=== PATIENT | male | born 1960 | race Caucasian/White ===

== ENCOUNTER → 2019-12-18 11:42 | Outpatient (BNVA) | payer MEDICAID, SELFPAY | PROVIDERS: PCP Family Medicine; Visit Provider Surgery | DX: Z47.81 Encounter for orthopedic aftercare following surgical amputation (principal); M86.9 Osteomyelitis, unspecified; L97.519 Non-pressure chronic ulcer of other part of right foot with unspecified severity; Z89.421 Acquired absence of other right toe(s) | CPT/HCPCS: 99024; 99212 ==

== ENCOUNTER 2019-12-26 07:36 | Day surgery (SDC) | payer MEDICAID, SELFPAY ==
[2019-12-25 11:39] VITALS: BMI 23.8
--- NOTE | 2019-12-25 12:22 | HO.ANESPROP2 ---
Documented by User: Analia Rees 12/25/19 12:35 HPI - Anesthesia Eval Consult details Narrative: 59yo M for Right 4th metatarsal soft tissue debridment s/p Right toe amps 09/23/19 with GA-LMA 5 PMFSH Past Medical History Medical History Bronchitis, chronic CAD (coronary artery disease) COPD (chronic obstructive pulmonary disease) Depression Diabetes type 2 with atherosclerosis of arteries of extremities GERD (gastroesophageal reflux disease) Hyperlipidemia Hypertension Lung cancer SHANIQUA (obstructive sleep apnea) Osteomyelitis of fourth toe of right foot PVD (peripheral vascular disease) Family History Family History Father History of lung cancer Mother History of hypertension Family history of Alzheimer's disease Maternal Uncle History of colon cancer Surgical History Surgical History History of angioplasty History of bronchoscopy History of cholecystectomy History of hernia repair History of removal of cyst History of tonsillectomy Social History Social History Alcohol intake: former Smoking Status: Current every day smoker Packs Per Day: 2 Cigarettes Per Day: 40.0 Years Smoked: 45 Smoked in Last 30 Days: Yes Substance Use Type: Marijuana Substance Use Frequency: Daily Advance Directives: No Advance Directives Information Provided: No Recently lost weight without trying: Unsure Meds Allergies Allergy/AdvReac Type Severity Reaction Status Date / Time lisinopril [LISINOPRIL] Allergy Intermediate BLEEDING Verified 12/26/19 07:51 IN MOUTH,SWELLING Josh inhibitors Allergy Unknown Unknown Uncoded 12/18/19 11:48 Home Medications Medication Instructions Recorded Confirmed Type aspirin 81 mg tablet,delayed 81 mg PO DAILY 12/18/19 History release atorvastatin 40 mg tablet 40 mg PO DAILY 12/18/19 History clopidogrel 75 mg tablet 75 mg PO DAILY 12/18/19 History famotidine 20 mg tablet 20 mg PO BID 12/18/19 History folic acid 1 mg tablet 1 mg PO DAILY 12/18/19 History isosorbide mononitrate 60 mg 60 mg PO DAILY 12/18/19 History tablet,extended release 24 hr loratadine 10 mg capsule 10 mg PO DAILY 12/18/19 History magnesium gluconate 27 mg 27 mg PO DAILY tab 12/18/19 History magnesium (500 mg) tablet omega-3 fatty acids 1,000 mg 1,000 mg PO DAILY 12/18/19 History capsule quetiapine 50 mg tablet 50 mg PO BEDTIME 12/18/19 History tamsulosin 0.4 mg capsule 0.4 mg PO DAILY 12/18/19 History thiamine HCl (vitamin B1) 100 mg 100 mg PO DAILY 12/18/19 History tablet venlafaxine 37.5 mg 37.5 mg PO DAILY 12/18/19 History capsule,extended release 24 hr vitamin B complex 1 tab PO DAILY 12/18/19 History Flovent 12/26/19 History Exam Exam Date and Time: December 25, 2019 1222 Height,Weight and Vital Signs: Height 5 ft 10 in Weight 75.296 kg Pertinent Lab Results Pertinent Lab Results: Laboratory Tests 12/16/19 12/16/19 14:00 14:00 WBC 16.1 H Hgb 10.2 L Hct 31.5 L Plt Count 422 H Sodium 137 Potassium 4.1 Chloride 102 Carbon Dioxide 29 BUN 6 L Creatinine 0.71 Narrative Narrative: EKG 06/27/19: ST@102 Assessment and Plan Assessment Anesthesia Assessment: Chart Reviewed Documented by User: Regi Schuster 12/26/19 08:58 [facility] Past Medical History Medical History Bronchitis, chronic CAD (coronary artery disease) COPD (chronic obstructive pulmonary disease) Depression Diabetes type 2 with atherosclerosis of arteries of extremities GERD (gastroesophageal reflux disease) Hyperlipidemia Hypertension Lung cancer SHANIQUA (obstructive sleep apnea) Osteomyelitis of fourth toe of right foot PVD (peripheral vascular disease) Family History Family History Father History of lung cancer Mother History of hypertension Family history of Alzheimer's disease Maternal Uncle History of colon cancer Surgical History Surgical History History of angioplasty History of bronchoscopy History of cholecystectomy History of hernia repair History of removal of cyst History of tonsillectomy Social History Social History Alcohol intake: former Smoking Status: Current every day smoker Packs Per Day: 2 Cigarettes Per Day: 40.0 Years Smoked: 45 Smoked in Last 30 Days: Yes Substance Use Type: Marijuana Substance Use Frequency: Daily Advance Directives: No Advance Directives Information Provided: No Recently lost weight without trying: Unsure Meds Allergies Allergy/AdvReac Type Severity Reaction Status Date / Time lisinopril [LISINOPRIL] Allergy Intermediate BLEEDING Verified 12/26/19 07:51 IN MOUTH,SWELLING Josh inhibitors Allergy Unknown Unknown Uncoded 12/18/19 11:48 Home Medications Medication Instructions Recorded Confirmed Type aspirin 81 mg tablet,delayed 81 mg PO DAILY 12/18/19 History release atorvastatin 40 mg tablet 40 mg PO DAILY 12/18/19 History clopidogrel 75 mg tablet 75 mg PO DAILY 12/18/19 History famotidine 20 mg tablet 20 mg PO BID 12/18/19 History folic acid 1 mg tablet 1 mg PO DAILY 12/18/19 History isosorbide mononitrate 60 mg 60 mg PO DAILY 12/18/19 History tablet,extended release 24 hr loratadine 10 mg capsule 10 mg PO DAILY 12/18/19 History magnesium gluconate 27 mg 27 mg PO DAILY tab 12/18/19 History magnesium (500 mg) tablet omega-3 fatty acids 1,000 mg 1,000 mg PO DAILY 12/18/19 History capsule quetiapine 50 mg tablet 50 mg PO BEDTIME 12/18/19 History tamsulosin 0.4 mg capsule 0.4 mg PO DAILY 12/18/19 History thiamine HCl (vitamin B1) 100 mg 100 mg PO DAILY 12/18/19 History tablet venlafaxine 37.5 mg 37.5 mg PO DAILY 12/18/19 History capsule,extended release 24 hr vitamin B complex 1 tab PO DAILY 12/18/19 History Flovent 12/26/19 History Exam Airway Mallampati Class: II TM Dist: >3cm Neck ROM: Limited Denture: Upper and Lower Heart: RRR Lungs: CTA Assessment and Plan Assessment Anesthesia Assessment: Anesthesia Plan Discussed Final Anesthetic Review NPO: Yes ASA Class: III Final Preanesthetic Review: No Changes in Pt Med Stat, Meds/Allgs Chart Reviewed, Consent Obtained/Reviewed, Anes Risks/Benef Reviewed and DNR Form (If Appl.) Patient Risk: Intermediate Procedure Risk: Low Assessment/Block/Sedation in SS: Assess/Block/Sedation-SS Anesthetic Plan Anesthetic Plan: MAC: Disposition: Standard PACU
[2019-12-26 08:07] VITALS: BP 115/77; PULSE 120; RESP 18; TEMP 36.6; O2SAT 95
[2019-12-26] MEDS: Albuterol Sulfate (0.083%) 2.5 MG/3 ML VIAL.NEB INHALE (08:26)
[2019-12-26] MEDS: ceFAZolin Sodium/Dextrose,Iso 2 GM/50 ML PIGGYBACK IV (08:26)
[2019-12-26] MEDS: Lactated Ringers 1,000 ML 100 ML IVCONT (08:26)
[2019-12-26 08:34] LABS: Glucose, Whole Blood 138 mg/dL (60-115)
--- NOTE | 2019-12-26 08:40 | MHC.SHP ---
Pre-Procedural Eval Section A The patient is an INPATIENT: No Changes since office visit: Yes Patient answered all questions; No Cold of Flu in the past 2 weeks, No New Medical Problems and No Changes in Medication The History & Physical has been completed within 30 days and I have reviewed it.: Yes Section B Chief Complaint: Osteomyelitis, Unspecified Allergies: Allergies Allergy/AdvReac Type Severity Reaction Status Date / Time lisinopril [LISINOPRIL] Allergy Intermediate BLEEDING Verified 12/26/19 07:51 IN MOUTH,SWELLING Josh inhibitors Allergy Unknown Unknown Uncoded 12/18/19 11:48 Plan Diagnosis/Plan: Unchanged Patient has been examined and remains a candidate for the planned procedure
[2019-12-26 09:20] VITALS: BP 112/67; PULSE 115; RESP 16; TEMP 36.5; O2SAT 99
[2019-12-26 09:35] VITALS: BP 120/74; PULSE 101; RESP 20; O2SAT 100
[2019-12-26 09:50] VITALS: BP 131/83; PULSE 99; RESP 20; O2SAT 100
--- NOTE | 2019-12-26 10:38 | HO.POSTANES ---
Post Anesthesia Evaluation Post Anesthesia Evaluation Vital Signs: Vital Signs Temp Pulse Resp BP Pulse Ox 12/26/19 09:50 99 20 131/83 100 12/26/19 09:35 101 H 20 120/74 100 12/26/19 09:20 97.7 F 115 H 16 112/67 99 12/26/19 08:07 97.9 F 120 H 18 115/77 95 Anesthesia: Monitored Mental Status: Awake Pain Control: Satisfactory Nausea/Vomiting: None Hydration: Adequate Anesthesia-Related Issues: No Anes. Related Issues
--- NOTE | 2019-12-27 15:45 | MHC.HEMONCSW ---
ZEESHAN REQUEST FOR CT ABD/PELVIS WITH C WENT TO [facility]....C# [id number]. WAIT DECISION.
--- NOTE | 2019-12-30 15:08 | P.OP_ITS ---
Operative Note Operative Note Narrative: Date of procedure: 12/26/19 Pre-op diagnosis: Osteomyelitis, right 4th toe Post-op diagnosis: same Procedure: Debridement bone right 4th metatarsal Procedure Details: Patient was brought to the OR and placed in a supine position. Light sedation was administered. The patient's right foot was prepped with Betadine and draped in a sterile fashion. A surgical time-out was called and the consent confirmed. Patient received preoperative antibiotics and Venodyne boots were in place. Local anesthesia consisting of 0.5% Sensorcaine plain was infiltrated as a digital block around the 4th metatarsal. A 15 blade was then used to excise a plantar ulcer located at the base of the 4th metatarsal including skin and subcutaneous tissue. The ulcer measured approximately 2.5 by 1.5 cm. The ulcer is approximately 1.5 cm deep. A bony structure was noted at the base of the wound. This was grasped with a towel clip and electrocautery used to dissected free from the surrounding subcutaneous tissue. The bone was noted to be soft and obviously infected. Periosteal e levator was used to further dissect the metatarsal proximal to the mid metatarsal level. At this point a bone cutter was used to divide the metatarsal. The bone was further debrided more proximal using a rongeur. Several small sesmoid bones were identified were identified within the subcutaneous tissue and excised using electrocautery. These were all sent as specimens. The wounds were checked for hemostasis using electrocautery. Wounds were irrigated thoroughly and suctioned dry. Wounds were then packed with iodoform gauze the later switched to a Surgicel packing. This was followed by dry sterile gauze, ABD pad and 4 in Raghav. The patient tolerated the procedure well. Sponge, instruments, and needle counts were reported as correct. The patient was transferred to PACU in stable condition. Implants: none Surgeon: Roberto Londono MD Anesthesia: MAC Labor Training Manager: Peyton Leyva Estimated blood loss (mL): 20 Pathology: other (4th metatarsal) Condition: stable Disposition: PACU
== END 2019-12-26 11:01 | disposition home health service (06) ==
PROVIDERS: PCP Family Medicine; Visit Provider Surgery
PROC: (CPT 11044; principal; 2019-12-26 09:10)
DX: E11.621 Type 2 diabetes mellitus with foot ulcer (principal); L97.418 Non-pressure chronic ulcer of right heel and midfoot with other specified severity; E11.69 Type 2 diabetes mellitus with other specified complication; E11.52 Type 2 diabetes mellitus with diabetic peripheral angiopathy with gangrene; I70.261 Atherosclerosis of native arteries of extremities with gangrene, right leg; M86.171 Other acute osteomyelitis, right ankle and foot; C34.90 Malignant neoplasm of unspecified part of unspecified bronchus or lung; I25.10 Atherosclerotic heart disease of native coronary artery without angina pectoris; G47.33 Obstructive sleep apnea (adult) (pediatric); J44.9 Chronic obstructive pulmonary disease, unspecified; Z79.899 Other long term (current) drug therapy
CPT/HCPCS: 11044; 82947; 88304; 88305; 88311; J0690; J3010

== ENCOUNTER 2020-01-07 12:40 | Outpatient (RCR) | payer MEDICAID, SELFPAY | END 2020-02-26 13:33 | disposition home or self-care (01) | LOC: HO.WCC 12:40 | PROVIDERS: PCP Family Medicine; Visit Provider Surgery | DX: E11.621 Type 2 diabetes mellitus with foot ulcer (principal); E11.51 Type 2 diabetes mellitus with diabetic peripheral angiopathy without gangrene; L97.512 Non-pressure chronic ulcer of other part of right foot with fat layer exposed; D02.20 Carcinoma in situ of unspecified bronchus and lung | CPT/HCPCS: 11043; 11044; 99212 ==

== ENCOUNTER → 2020-01-23 15:34 | Outpatient (BNVA) | payer MEDICAID, SELFPAY | PROVIDERS: PCP Family Medicine; Visit Provider Surgery Vascular Surgery | DX: Z76.89 Persons encountering health services in other specified circumstances (principal) ==

== ENCOUNTER → 2020-02-04 11:23 | Outpatient (BNVA) | payer MEDICAID, SELFPAY | PROVIDERS: PCP Family Medicine; Visit Provider Surgery | DX: M86.9 Osteomyelitis, unspecified (principal); L97.416 Non-pressure chronic ulcer of right heel and midfoot with bone involvement without evidence of necrosis; Z89.431 Acquired absence of right foot; Z98.890 Other specified postprocedural states | CPT/HCPCS: 99212 ==

== ENCOUNTER 2020-02-17 06:56 | Day surgery (SDC) | payer MEDICAID, SELFPAY ==
[2020-02-11 19:27] VITALS: BMI 53.7
[2020-02-11 20:31] VITALS: BMI 24.3
--- NOTE | 2020-02-14 11:31 | HO.ANESPROP2 ---
Documented by User: Analia Rees 02/14/20 11:36 HPI - Anesthesia Eval Consult details Narrative: 89yo M for Right Debridement Soft Tissue Right 3rd toe 12/26/19 s/p Debridement bone right 4th metatarsal with MAC PMFSH Past Medical History Medical History Amputation of one or more toes BPH (benign prostatic hyperplasia) Bronchitis, chronic CAD (coronary artery disease) COPD (chronic obstructive pulmonary disease) Depression Diabetes type 2 with atherosclerosis of arteries of extremities GERD (gastroesophageal reflux disease) Hyperlipidemia Hypertension Lung cancer SHANIQUA (obstructive sleep apnea) Peripheral neuropathy PVD (peripheral vascular disease) Smoker Family History Family History Father History of lung cancer Mother History of hypertension Family history of Alzheimer's disease Maternal Uncle History of colon cancer Surgical History Surgical History History of angioplasty History of bronchoscopy History of cholecystectomy History of hernia repair History of removal of cyst History of tonsillectomy Osteomyelitis of fourth toe of right foot Social History Social History Alcohol intake: former Smoking Status: Current every day smoker Packs Per Day: 2 Cigarettes Per Day: 40.0 Years Smoked: 45 Smoked in Last 30 Days: Yes Patient Interested in Nicotine Replacement: No Use of substances other than those prescribed or required for medical reasons: Yes Substance Use Type: Marijuana Substance Use Frequency: Daily Advance Directives: Yes Advance Directives Information Provided: Yes Advance Directives on File: No (Patient will bring in copy) Advance Directives Date on File: 04/14/09 Meds Allergies Allergy/AdvReac Type Severity Reaction Status Date / Time lisinopril [LISINOPRIL] Allergy Intermediate BLEEDING Verified 01/23/20 15:44 IN MOUTH,SWELLING Josh inhibitors Allergy Unknown Unknown Uncoded 12/18/19 11:48 Home Medications Medication Instructions Recorded Confirmed Type aspirin 81 mg tablet,delayed 81 mg PO DAILY 12/18/19 02/11/20 History release atorvastatin 40 mg tablet 40 mg PO BEDTIME 12/18/19 02/11/20 History clopidogrel 75 mg tablet 75 mg PO DAILY 12/18/19 02/11/20 History famotidine 20 mg tablet 20 mg PO DAILY 12/18/19 02/11/20 History folic acid 1 mg tablet 1 mg PO DAILY 12/18/19 02/11/20 History isosorbide mononitrate 60 mg 60 mg PO DAILY 12/18/19 02/11/20 History tablet,extended release 24 hr loratadine 10 mg capsule 10 mg PO DAILY 12/18/19 02/11/20 History magnesium gluconate 27 mg 27 mg PO DAILY tab 12/18/19 02/11/20 History magnesium (500 mg) tablet omega-3 fatty acids 1,000 mg 1,000 mg PO BID 12/18/19 02/11/20 History capsule quetiapine 50 mg tablet 50 mg PO BID 12/18/19 02/11/20 History tamsulosin 0.4 mg capsule 0.4 mg PO DAILY 12/18/19 02/11/20 History thiamine HCl (vitamin B1) 100 mg 100 mg PO DAILY 12/18/19 02/11/20 History tablet venlafaxine 37.5 mg 37.5 mg PO DAILY 12/18/19 02/11/20 History capsule,extended release 24 hr vitamin B complex 1 tab PO DAILY 12/18/19 02/11/20 History Flovent 1 puff BID 12/26/19 02/11/20 History dexamethasone 4 mg PO BID 01/06/20 02/11/20 History albuterol sulfate [ProAir HFA] 1 inh INHALATION QID PRN 01/08/20 02/11/20 History ferrous sulfate 325 mg PO BID 01/08/20 02/11/20 History fluticasone propionate 113 mcg INHALATION BID 01/08/20 02/11/20 History gabapentin 300 mg PO TID 01/08/20 02/11/20 History gabapentin 600 mg PO TID 01/08/20 02/11/20 History multivitamin 1 tab PO DAILY 01/08/20 02/11/20 History omeprazole 20 mg PO BID 01/08/20 02/11/20 History ondansetron HCl [Zofran] 8 mg PO Q8H PRN 01/08/20 02/11/20 History tiotropium bromide [Spiriva with 1 cap INHALATION DAILY 01/08/20 02/11/20 History HandiHaler] Exam Exam Date and Time: February 14, 2020 1131 Height,Weight and Vital Signs: Height 5 ft 10 in Weight 77.111 kg Pertinent Lab Results Pertinent Lab Results: Laboratory Tests 11/16/20 11/16/20 10:13 10:13 WBC 12.4 H Hgb 10.8 L Hct 34.2 L Plt Count 420 H Sodium 133 L Potassium 4.3 Chloride 100 Carbon Dioxide 26 BUN 7 L Creatinine 0.67 Narrative Narrative: EKG 06/27/19: ST@102 Assessment and Plan Assessment Anesthesia Assessment: Chart Reviewed Documented by User: Yesenia Han 02/17/20 07:25 PMFSH Past Medical History Medical History Amputation of one or more toes BPH (benign prostatic hyperplasia) Bronchitis, chronic CAD (coronary artery disease) COPD (chronic obstructive pulmonary disease) Depression Diabetes type 2 with atherosclerosis of arteries of extremities GERD (gastroesophageal reflux disease) Hyperlipidemia Hypertension Lung cancer SHANIQUA (obstructive sleep apnea) Peripheral neuropathy PVD (peripheral vascular disease) Smoker Family History Family History Father History of lung cancer Mother History of hypertension Family history of Alzheimer's disease Maternal Uncle History of colon cancer Surgical History Surgical History History of angioplasty History of bronchoscopy History of cholecystectomy History of hernia repair History of removal of cyst History of tonsillectomy Osteomyelitis of fourth toe of right foot Social History Social History Alcohol intake: former Smoking Status: Current every day smoker Packs Per Day: 2 Cigarettes Per Day: 40.0 Years Smoked: 45 Smoked in Last 30 Days: Yes Patient Interested in Nicotine Replacement: No Use of substances other than those prescribed or required for medical reasons: Yes Substance Use Type: Marijuana Substance Use Frequency: Daily Advance Directives: Yes Advance Directives Information Provided: Yes Advance Directives on File: No (Patient will bring in copy) Advance Directives Date on File: 04/14/09 Meds Allergies Allergy/AdvReac Type Severity Reaction Status Date / Time lisinopril [LISINOPRIL] Allergy Intermediate BLEEDING Verified 01/23/20 15:44 IN MOUTH,SWELLING Josh inhibitors Allergy Unknown Unknown Uncoded 12/18/19 11:48 Home Medications Medication Instructions Recorded Confirmed Type aspirin 81 mg tablet,delayed 81 mg PO DAILY 12/18/19 02/11/20 History release atorvastatin 40 mg tablet 40 mg PO BEDTIME 12/18/19 02/11/20 History clopidogrel 75 mg tablet 75 mg PO DAILY 12/18/19 02/11/20 History famotidine 20 mg tablet 20 mg PO DAILY 12/18/19 02/11/20 History folic acid 1 mg tablet 1 mg PO DAILY 12/18/19 02/11/20 History isosorbide mononitrate 60 mg 60 mg PO DAILY 12/18/19 02/11/20 History tablet,extended release 24 hr loratadine 10 mg capsule 10 mg PO DAILY 12/18/19 02/11/20 History magnesium gluconate 27 mg 27 mg PO DAILY tab 12/18/19 02/11/20 History magnesium (500 mg) tablet omega-3 fatty acids 1,000 mg 1,000 mg PO BID 12/18/19 02/11/20 History capsule quetiapine 50 mg tablet 50 mg PO BID 12/18/19 02/11/20 History tamsulosin 0.4 mg capsule 0.4 mg PO DAILY 12/18/19 02/11/20 History thiamine HCl (vitamin B1) 100 mg 100 mg PO DAILY 12/18/19 02/11/20 History tablet venlafaxine 37.5 mg 37.5 mg PO DAILY 12/18/19 02/11/20 History capsule,extended release 24 hr vitamin B complex 1 tab PO DAILY 12/18/19 02/11/20 History Flovent 1 puff BID 12/26/19 02/11/20 History dexamethasone 4 mg PO BID 01/06/20 02/11/20 History albuterol sulfate [ProAir HFA] 1 inh INHALATION QID PRN 01/08/20 02/11/20 History ferrous sulfate 325 mg PO BID 01/08/20 02/11/20 History fluticasone propionate 113 mcg INHALATION BID 01/08/20 02/11/20 History gabapentin 300 mg PO TID 01/08/20 02/11/20 History gabapentin 600 mg PO TID 01/08/20 02/11/20 History multivitamin 1 tab PO DAILY 01/08/20 02/11/20 History omeprazole 20 mg PO BID 01/08/20 02/11/20 History ondansetron HCl [Zofran] 8 mg PO Q8H PRN 01/08/20 02/11/20 History tiotropium bromide [Spiriva with 1 cap INHALATION DAILY 01/08/20 02/11/20 History HandiHaler] Exam Airway Mallampati Class: II TM Dist: >3cm Neck ROM: Full Loose/Missing/Broken Teeth: Yes (Edentulous), Upper and Lower Heart: RRR Lungs: clear but distant Assessment and Plan Assessment Anesthesia Assessment: Anesthesia Plan Discussed and Chart Reviewed Final Anesthetic Review NPO: Yes ASA Class: III Final Preanesthetic Review: No Changes in Pt Med Stat, Meds/Allgs Chart Reviewed and Anes Risks/Benef Reviewed Patient Risk: Intermediate Procedure Risk: Low Anesthetic Plan Anesthetic Plan: MAC: Disposition: Standard PACU
[2020-02-17 06:31] VITALS: BP 130/75; PULSE 96; RESP 16; TEMP 36.3; O2SAT 95
[2020-02-17] MEDS: Lactated Ringers 1,000 ML 100 ML IVCONT ×2 (06:50→07:21)
[2020-02-17] MEDS: ceFAZolin Sodium/Dextrose,Iso 2 GM/50 ML PIGGYBACK IV (07:20)
--- NOTE | 2020-02-17 07:21 | MHC.SHP ---
Pre-Procedural Eval Section A The patient is an INPATIENT: No Changes since office visit: Yes Patient answered all questions; No Cold of Flu in the past 2 weeks, No New Medical Problems and No Changes in Medication The History & Physical has been completed within 30 days and I have reviewed it.: Yes Section B Chief Complaint: Osteomyelitis Allergies: Allergies Allergy/AdvReac Type Severity Reaction Status Date / Time lisinopril [LISINOPRIL] Allergy Intermediate BLEEDING Verified 01/23/20 15:44 IN MOUTH,SWELLING Josh inhibitors Allergy Unknown Unknown Uncoded 12/18/19 11:48 Plan Diagnosis/Plan: Unchanged Patient has been examined and remains a candidate for the planned procedure
[2020-02-17 08:21] LABS: Glucose, Whole Blood 129 mg/dL (60-115)
--- NOTE | 2020-02-17 08:47 | PM.OP ---
Brief Operative Note Date of Service: 02/17/20 Pre-op diagnosis: Osteomyelitis 3rd toe right foot Post-op diagnosis: other (Osteomyelitis transmetatarsal right foot) Procedure: Revision right transmetatarsal amputation, debridement of skin, subcutaneous tissue, muscle, and bone right foot Implants: None Surgeon: Roberto Londono MD Anesthesia: MAC On Call Pharmacy Technician: Peyton Leyva Estimated blood loss (mL): 30 Pathology: other (Osteomyelitis right foot) Condition: stable Disposition: PACU
--- NOTE | 2020-02-17 08:49 | W.PM.OPN ---
Operative Note Operative Note Date of Service: 02/17/20 Narrative: Preoperative diagnosis: Osteomyelitis right 3rd toe Postoperative diagnosis: Osteomyelitis 1st through 5th toes right foot Procedure: Revision of transmetatarsal amputation right foot with debridement of bone, muscle, subcutaneous tissue, and skin Surgeon: Roberto Londono MD Jigsaw Operator: ZANA Banuelos Anesthesia: MAC Indications for procedure 59-year-old male with a previous history of osteomyelitis of the right foot and peripheral vascular disease now with several open wounds of the right foot status post transmetatarsal amputation. Operative findings: Patient was found to have multiple areas of osteomyelitis involving the metatarsals and distal phalanx of the right foot involving both 1st 2nd 3rd 4th and 5th metatarsals. Specimen: Osteomyelitis right foot, revision transmetatarsal amputation Drains: Iodoform gauze quarter-inch Complications: None Estimated blood loss: 30 mL Procedure details.: Patient was brought to the OR placed in a supine position. After administering light sedation the patient's right foot was prepped with Betadine and draped in sterile fashion. A surgical time-out was called the consent confirmed. Patient received preoperative antibiotics. Local anesthesia consisting of 0.5% Sensorcaine mixed with 1% lidocaine plain was infiltrated in the right foot as a block. An elliptical incision was then created to include all the open wounds located on the plantar surface of the foot. This was created in a transverse fashion along the right foot. The incision was carried down through subcutaneous tissue down to the distal metatarsals. Infected tissue was noted in the bone in the distal metatarsal therefore electrocautery was used to dissect slightly more proximal in the bone down to healthy bone. A bone cutter was then used to divide the 5th through 1st metatarsals. This was further debrided using a rongeur. Wounds were irrigated thoroughly with saline solution and suctioned dry. Wounds were checked for hemostasis. Deep subcutaneous tissue and dermis were reapproximated using interrupted 3-0 Polysorb sutures. Skin was then closed using interrupted 2 0 nylon sutures. 1/4 inch iodoform gauze was then packed between sutures. The wounds were then dressed with fluff gauze followed by ABD pad followed by Kerlix followed by an Josh bandage. The patient tolerated the procedure well. Sponge, instrument, needle counts reported as correct. The patient was transferred to PACU in stable condition.
[2020-02-17 08:50] VITALS: BP 115/66; PULSE 91; RESP 18; TEMP 36.6; O2SAT 97
[2020-02-17 09:05] VITALS: BP 130/77; PULSE 87; RESP 18; TEMP 36.6; O2SAT 95
--- NOTE | 2020-02-17 12:30 | HO.POSTANES ---
Post Anesthesia Evaluation Post Anesthesia Evaluation Vital Signs: Vital Signs Temp Pulse Resp BP Pulse Ox 02/17/20 09:05 97.8 F 87 18 130/77 95 02/17/20 08:50 97.8 F 91 18 115/66 97 02/17/20 06:31 97.4 F 96 16 130/75 95 Anesthesia: Monitored Mental Status: Awake Pain Control: Satisfactory Nausea/Vomiting: None Hydration: Adequate Anesthesia-Related Issues: No Anes. Related Issues
== END 2020-02-17 09:47 ==
LOC: HO.SSS 06:57
PROVIDERS: PCP Family Medicine; Visit Provider Surgery
PROC: (CPT 28805; principal; 2020-02-17 07:30)
DX: E11.621 Type 2 diabetes mellitus with foot ulcer (principal); E11.69 Type 2 diabetes mellitus with other specified complication; L97.516 Non-pressure chronic ulcer of other part of right foot with bone involvement without evidence of necrosis; I70.201 Unspecified atherosclerosis of native arteries of extremities, right leg; M86.171 Other acute osteomyelitis, right ankle and foot; E11.51 Type 2 diabetes mellitus with diabetic peripheral angiopathy without gangrene; E11.40 Type 2 diabetes mellitus with diabetic neuropathy, unspecified; Z79.84 Long term (current) use of oral hypoglycemic drugs; I10 Essential (primary) hypertension; G47.33 Obstructive sleep apnea (adult) (pediatric); T87.89 Other complications of amputation stump; Y83.5 Amputation of limb(s) as the cause of abnormal reaction of the patient, or of later complication, without mention of misadventure at the time of the procedure; Y92.9 Unspecified place or not applicable; Z89.431 Acquired absence of right foot; F17.210 Nicotine dependence, cigarettes, uncomplicated
CPT/HCPCS: 28805; 82947; 88305; 88311; J0690; J3010

== ENCOUNTER 2020-02-17 15:12 | Observation (INO) | payer MEDICAID, SELFPAY ==
[2020-02-17 15:35] VITALS: BP 126/81; BP 150/86; PULSE 103; PULSE 78; RESP 16; TEMP 37.1; O2SAT 95; BMI 26.6
--- NOTE | 2020-02-17 15:38 | ED_ITS ---
HPI - Extremity Injury (Lower) General Chief Complaint: Recheck/Abnormal Lab/Rx Stated Complaint: BLEEDING S/P Time Seen by Provider: 02/17/20 15:25 Source: patient and EMS Mode of arrival: EMS History of Present Illness HPI Narrative: 59yoM w/PMHx HTN, HLD, SHANIQUA, PVD, CAD, Depression, Lung CA, osteomyelitis, s/p revision right transmetatarsal amputation performed this AM by Dr. Londono presenting to ED c/o bleeding from surgical site since 1PM this afternoon. Reports soaked through dressing/shoe/recliner. Takes Xarelto. Denies trauma/injury, lightheadedness/dizziness, CP/SOB Related Data Home Medications Medication Instructions Recorded Confirmed aspirin 81 mg tablet,delayed 81 mg PO DAILY 12/18/19 02/11/20 release atorvastatin 40 mg tablet 40 mg PO BEDTIME 12/18/19 02/11/20 clopidogrel 75 mg tablet 75 mg PO DAILY 12/18/19 02/11/20 famotidine 20 mg tablet 20 mg PO DAILY 12/18/19 02/11/20 folic acid 1 mg tablet 1 mg PO DAILY 12/18/19 02/11/20 isosorbide mononitrate 60 mg 60 mg PO DAILY 12/18/19 02/11/20 tablet,extended release 24 hr loratadine 10 mg capsule 10 mg PO DAILY 12/18/19 02/11/20 magnesium gluconate 27 mg 27 mg PO DAILY tab 12/18/19 02/11/20 magnesium (500 mg) tablet omega-3 fatty acids 1,000 mg 1,000 mg PO BID 12/18/19 02/11/20 capsule quetiapine 50 mg tablet 50 mg PO BID 12/18/19 02/11/20 tamsulosin 0.4 mg capsule 0.4 mg PO DAILY 12/18/19 02/11/20 thiamine HCl (vitamin B1) 100 mg 100 mg PO DAILY 12/18/19 02/11/20 tablet venlafaxine 37.5 mg 37.5 mg PO DAILY 12/18/19 02/11/20 capsule,extended release 24 hr vitamin B complex 1 tab PO DAILY 12/18/19 02/11/20 Flovent 1 puff BID 12/26/19 02/11/20 dexamethasone 4 mg PO BID 01/06/20 02/11/20 Spiriva with HandiHaler 1 cap INHALATION DAILY 01/08/20 02/11/20 albuterol sulfate [ProAir HFA] 1 inh INHALATION QID PRN 01/08/20 02/11/20 ferrous sulfate 325 mg PO BID 01/08/20 02/11/20 fluticasone propionate 113 mcg INHALATION BID 01/08/20 02/11/20 gabapentin 300 mg PO TID 01/08/20 02/11/20 gabapentin 600 mg PO TID 01/08/20 02/11/20 multivitamin 1 tab PO DAILY 01/08/20 02/11/20 omeprazole 20 mg PO BID 01/08/20 02/11/20 ondansetron HCl [Zofran] 8 mg PO Q8H PRN 01/08/20 02/11/20 Previous Rx's Medication Instructions Recorded oxycodone 5 mg PO Q6H PRN #14 tab 12/26/19 oxycodone 5 mg PO Q6H PRN #20 tab 02/17/20 Allergies Allergy/AdvReac Type Severity Reaction Status Date / Time lisinopril [LISINOPRIL] Allergy Intermediate BLEEDING Verified 01/23/20 15:44 IN MOUTH,SWELLING Josh inhibitors Allergy Unknown Unknown Uncoded 12/18/19 11:48 Review of Systems Review of Systems: Constitutional: No Weight loss, No Fever Cardiovascular: No Chest Pain, No SOB Respiratory: No Cough, No Sputum, No Wheezing Musculoskeletal: + joint pain, No Myalgias, No Joint Swelling Skin: +surgical site bleeding Neuro: No Weakness, No Paresthesias (from chronic neuropthy), No Loss of Consciousness, No Dizziness/lightheadedness, No Headache PMFSH Past Medical History Attestation statement: The following information was validated with the patient. Medical History Amputation of one or more toes BPH (benign prostatic hyperplasia) Bronchitis, chronic CAD (coronary artery disease) COPD (chronic obstructive pulmonary disease) Depression Diabetes type 2 with atherosclerosis of arteries of extremities GERD (gastroesophageal reflux disease) Hyperlipidemia Hypertension Lung cancer SHANIQUA (obstructive sleep apnea) Peripheral neuropathy PVD (peripheral vascular disease) Smoker Surgical History History of angioplasty History of bronchoscopy History of cholecystectomy History of hernia repair History of removal of cyst History of tonsillectomy Osteomyelitis of fourth toe of right foot Family History Family History Father History of lung cancer Mother History of hypertension Family history of Alzheimer's disease Maternal Uncle History of colon cancer Social History Social History Alcohol intake: never Smoking Status: Current every day smoker Packs Per Day: 2 Cigarettes Per Day: 40.0 Years Smoked: 45 Use of substances other than those prescribed or required for medical reasons: Yes Substance Use Type: Marijuana Substance Use Frequency: Occasionally Advance Directives: Yes Advance Directives on File: Yes Advance Directives Date on File: 04/14/09 Physical Exam Vital Signs: Vital Signs: Last Vital Signs Temp 98.8 F 02/17/20 15:35 Pulse 103 H 02/17/20 15:35 Resp 16 02/17/20 15:35 BP 126/81 02/17/20 15:35 Pulse Ox 95 02/17/20 15:35 Body Mass Index 26.6 Const: General: cooperative and healthy appearing Orientation/consciousness: patient oriented x3 Limitations: no limitations HENMT: Head: Yes normal to inspection Ears: hearing grossly normal bilaterally General nose exam: Normal external nose present Face and sinus: Yes normal facial exam Eyes: General: appearance normal, both eyes and all related structures EOM: EOMs intact bilaterally Neck: Neck: Yes normal visual inspection Resp: Effort & Inspection: normal respiratory effort Cardio: Rate: regular rate Peripheral pulses: dorsalis pedis present GI: Inspection: Yes normal to inspection Skin: Other: +R foot surgical site with soaked through dressing, large clot noted. Sutures intact distally, wound weeping. No signs of cellulitis or active infection, no fluctuance/induration or active hemorrhage Neuro: General: patient oriented x3 Extrem: General: Yes normal to inspection Course Course Course Narrative: Dr. Londono came to ED, re-wrapped patient, recommended observation in ED and then f/u in his office tomorrow morning -1700--- ED care transferred to KATHI Zuluaga pending labs and re-eval MDM - Extremity Injury (Lower) MDM Narrative Medical decision making narrative: 59yoM w/PMHx HTN, HLD, SHANIQUA, PVD, CAD, Depression, Lung CA, osteomyelitis, s/p revision right transmetatarsal amputati on performed this AM by Dr. Londono presenting to ED c/o bleeding from surgical site since 1PM this afternoon. On exam mildly tachycardic, NAD, well appearing. Will consult Dr. Londono. R/o anemia from acute blood loss Plan: Consult surgery, Labs, observe Discharge Plan Discharge Clinical Impression: Post-op bleeding Patient Disposition: Home, Self-Care Instructions: Acute Wounds (ED) Prescriptions: No Action dexamethasone 4 mg Tablet 4 mg PO BID RF: 0 ferrous sulfate 325 mg (65 mg iron) Tablet 325 mg PO BID RF: 0 multivitamin Tablet 1 tab PO DAILY RF: 0 gabapentin 600 mg Tablet 600 mg PO TID RF: 0 albuterol sulfate [ProAir HFA] 90 mcg/actuation Hfa Aerosol Inhaler 1 inh INHALATION QID PRN (Reason: Shortness Of Breath Or Wheezing) RF: 0 Spiriva with HandiHaler 18 mcg Capsule, W/Inhalation Device 1 cap INHALATION DAILY RF: 0 fluticasone propionate 113 mcg inhalation BID RF: 0 gabapentin 300 mg Tablet 300 mg PO TID RF: 0 omeprazole 20 mg Tablet,Delayed Release (Dr/Ec) 20 mg PO BID RF: 0 ondansetron HCl [Zofran] 4 mg tablet 8 mg PO Q8H PRN (Reason: Nausea) RF: 0 Flovent 1 puff BID RF: 0 oxycodone 5 mg tablet 5 mg PO Q6H PRN (Reason: Foot pain) Qty: 14 RF: 0 oxycodone 5 mg tablet 5 mg PO Q6H PRN (Reason: pain) Qty: 20 RF: 0 aspirin [Adult Low Dose Aspirin] 81 mg tablet,delayed release (DR/EC) 81 mg PO DAILY RF: 0 loratadine 10 mg capsule 10 mg PO DAILY RF: 0 folic acid 1 mg tablet 1 mg PO DAILY RF: 0 omega-3 fatty acids [Fish Oil Concentrate] 1,000 mg capsule 1,000 mg PO BID RF: 0 vitamin B complex [B Complex-Vitamin B12] Tablet 1 tab PO DAILY RF: 0 thiamine HCl (vitamin B1) 100 mg tablet 100 mg PO DAILY RF: 0 venlafaxine 37.5 mg capsule,extended release 24hr 37.5 mg PO DAILY RF: 0 tamsulosin 0.4 mg capsule 0.4 mg PO DAILY RF: 0 quetiapine 50 mg tablet 50 mg PO BID RF: 0 magnesium gluconate [Mag-G] 27 mg magnesium (500 mg) tablet 27 mg PO DAILY RF: 0 isosorbide mononitrate 60 mg tablet extended release 24 hr 60 mg PO DAILY RF: 0 famotidine 20 mg tablet 20 mg PO DAILY RF: 0 clopidogrel 75 mg tablet 75 mg PO DAILY RF: 0 atorvastatin 40 mg tablet 40 mg PO BEDTIME RF: 0 Referrals: Roberto Londono MD [Physician] - 1 day (tomorrow morning)
[2020-02-17 16:00] VITALS: BP 151/70; PULSE 91; RESP 20; TEMP 36.8; O2SAT 93
--- NOTE | 2020-02-17 16:04 | PC.NURSE ---
dressing removed, large blood clot removed, gauze and rory wrap soaked through with blood. bleeding controlled once dressing removed, dr orr at bedside to assess wound site and redress. new dressing in place, pt to be monitored for any restart of bleeding, f/u with surgeon in outpt office tomorrow.
--- NOTE | 2020-02-17 16:15 | PM.EVENT ---
Event Note Date of Service: 02/17/20 Event Note: Patient seen in the ED after he reported increased bleeding from his wounds following surgery today. The dressings were removed and mild swelling noted in the foot. No active bleeding is noted. Wounds were cleaned and new sterile dressings with a compression dressing was applied. He tolerated the dressing change well. A new boot will be applied for the patient. He will return tomorrow to the office for a dressing change.
[2020-02-17 16:52] LABS: MANUAL DIFF FLAG NO
[2020-02-17 16:53] LABS: Basophils Percent Auto 0.2 % (0-2); Eosinophils Absolute Auto 0.2 X10*3/uL (0.0-0.4); Eosinophils Percent Auto 1.2 % (0-4); Hematocrit 33.8 % (42-52); Hemoglobin 10.4 g/dl (14.0-18.0); Imm Gran Abs Auto 0.11 X10*3/uL (0.00-0.03); Imm Gran Pct Auto 0.8 % (0.0-0.4); Lymphocytes Absolute Auto 1.2 X10*3/uL (1.2-4.9); Lymphocytes Percent Auto 7.9 % (20-40); Mean Corpuscular HGB Conc 30.8 g/dl (31.0-36.0); Mean Corpuscular Volume 97.4 fL (80-98); Mean Platelet Volume 8.2 fL (9.4-12.4); Monocytes Absolute Auto 1.1 X10*3/uL (0.1-1.2); Monocytes Percent Auto 7.4 % (2-11); Neutrophils Percent Auto 82.5 % (45-73); Platelet Count 366 X10*3/uL (160-400); Red Blood Count 3.47 X10*6/uL (4.60-5.80); Red Cell Distribution Width 16.8 % (11.0-16.0); White Blood Count 14.5 X10*3/uL (4.8-10.8)
[2020-02-17 16:59] LABS: INTERNATIONAL NORM RATIO 1.1 (0.9-1.1); Prothrombin Time 13.4 SEC (10.8-13.0)
[2020-02-17 17:04] LABS: Partial Thromboplastin Time 61.9 SEC (24.1-38.0)
[2020-02-17 20:00] VITALS: BP 151/70; PULSE 91; RESP 20; TEMP 36.8; O2SAT 93
[2020-02-17] MEDS: oxyCODONE HCl Immed Release 5 MG TABLET PO ×2 (20:14→23:53)
[2020-02-17] MEDS: LORazepam 0.5 MG TABLET PO (20:19)
[2020-02-17 20:25] VITALS: BP 148/68; PULSE 92; RESP 18; TEMP 36.9; O2SAT 93
[2020-02-17] MEDS: Morphine Sulfate 4 MG/ML CARTRIDGE IVPUSH (21:39)
[2020-02-17] MEDS: Lactated Ringers 1,000 ML 80 ML IVCONT (21:43)
[2020-02-17] MEDS: 0.9 % Sodium Chloride Flush 3 ML SYRINGE IVFLUSH (21:56)
[2020-02-18] MEDS: Morphine Sulfate 4 MG/ML CARTRIDGE IVPUSH ×3 (00:41→11:37)
[2020-02-18 04:00] VITALS: BP 128/62; PULSE 77; RESP 14; TEMP 36.2; O2SAT 94
[2020-02-18 06:47] LABS: Basophils Absolute Auto 0.1 X10*3/uL (0.0-0.2); Basophils Percent Auto 0.3 % (0-2); Eosinophils Absolute Auto 0.3 X10*3/uL (0.0-0.4); Eosinophils Percent Auto 1.9 % (0-4); Hematocrit 35.5 % (42-52); Hemoglobin 11.2 g/dl (14.0-18.0); Imm Gran Abs Auto 0.08 X10*3/uL (0.00-0.03); Imm Gran Pct Auto 0.5 % (0.0-0.4); Lymphocytes Absolute Auto 2.6 X10*3/uL (1.2-4.9); Lymphocytes Percent Auto 15.8 % (20-40); MANUAL DIFF FLAG SCAN; Mean Corpuscular HGB Conc 31.5 g/dl (31.0-36.0); Mean Corpuscular Hemoglobin 30.6 pg (27.0-33.0); Mean Platelet Volume 8.7 fL (9.4-12.4); Monocytes Absolute Auto 1.6 X10*3/uL (0.1-1.2); Monocytes Percent Auto 9.6 % (2-11); Neutrophils Absolute Auto 11.6 X10*3/uL (2.0-8.3); Neutrophils Percent Auto 71.9 % (45-73); Platelet Count 587 X10*3/uL (160-400); Red Blood Count 3.66 X10*6/uL (4.60-5.80); Red Cell Distribution Width 16.9 % (11.0-16.0); SCAN SMEAR FLAG 1; White Blood Count 16.2 X10*3/uL (4.8-10.8)
[2020-02-18] MEDS: Lactated Ringers 1,000 ML 80 ML IVCONT (07:30)
--- NOTE | 2020-02-18 07:32 | P.HPGS_ITS ---
History of Present Illness History of Present Illness Date of Service: 02/18/20 Chief complaint: postoperative bleeding right foot Narrative: Parviz Rosas is a 59 year old male well known to me with a history of Diabetes, PVD and osteomyelitis of the right foot, s/p revision of the trans metatarsal amputaion of the right foot on 02/17/2020. He was discharged to home and noted increased bleeding through the dressings after getting up to go to the bathroom. He presented to the ED and was found to have a large clot under the dressing. A new dressing was applied but he bleed through the second dressing with observation, therefore a pressure dressing was applied and he was admitted for observation. Overnight he reports right foot pain and difficulty sleeping. Review of Systems Constitutional: Constitutional: Reports anorexia, Reports difficulty sleeping, Reports weakness and Reports weight loss Cardiovascular: Cardiovascular: Reports dyspnea on exertion Respiratory: Respiratory: Reports cough and Reports dyspnea on exertion Gastrointestinal: Gastrointestinal: Reports no additional gastrointestinal complaints Musculoskeletal: Comments: right foot pain Neurologic: Reports weakness Psychiatric: Comments: anxiety PMFSH Past Medical History Medical History Amputation of one or more toes BPH (benign prostatic hyperplasia) Bronchitis, chronic CAD (coronary artery disease) COPD (chronic obstructive pulmonary disease) Depression Diabetes type 2 with atherosclerosis of arteries of extremities GERD (gastroesophageal reflux disease) Hyperlipidemia Hypertension Lung cancer SHANIQUA (obstructive sleep apnea) Peripheral neuropathy PVD (peripheral vascular disease) Smoker Family History Family History Father History of lung cancer Mother History of hypertension Family history of Alzheimer's disease Maternal Uncle History of colon cancer Surgical History Surgical History History of angioplasty History of bronchoscopy History of cholecystectomy History of hernia repair History of removal of cyst History of tonsillectomy Osteomyelitis of fourth toe of right foot Social History Social History Household Members: Spouse Housing: Apartment Do you presently have visiting nurse or other home services: No Alcohol intake: never Smoking Status: Current every day smoker Tobacco Type: Cigarette Packs Per Day: 2 Cigarettes Per Day: 40.0 Years Smoked: 45 years Smoked in Last 30 Days: Yes Patient Interested in Nicotine Replacement: No (Pt. has metastatic lung cancer stage 4) Use of substances other than those prescribed or required for medical reasons: Yes Substance Use Type: Marijuana Substance Use Frequency: Daily Last Used Substance: Hours (ago) Currently Displaying Signs/Symptoms of Drug Intoxication Withdrawal: No Any prior treatment program specific to substance use: No Have you been hit, kicked, punched, or otherwise hurt by someone within the past year? If so, by whom?: No Do you feel safe in your current relationship?: Yes Is there a partner from a previous relationship who is making you feel unsafe now?: No Are you made to feel afraid or neglected: No Advance Directives: Yes Advance Directives on File: Yes Advance Directives Date on File: 04/14/09 Do you have thoughts of harming others: None Do you have a plan to hurt others: No Plan Recently lost weight without trying: Yes Meds Allergies Allergy/AdvReac Type Severity Reaction Status Date / Time lisinopril [LISINOPRIL] Allergy Intermediate BLEEDING Verified 01/23/20 15:44 IN MOUTH,SWELLING Josh inhibitors Allergy Unknown Unknown Uncoded 12/18/19 11:48 Home Medications Medication Instructions Recorded Confirmed Type aspirin 81 mg tablet,delayed 81 mg PO DAILY 12/18/19 02/17/20 History release atorvastatin 40 mg tablet 40 mg PO BEDTIME 12/18/19 02/17/20 History clopidogrel 75 mg tablet 75 mg PO DAILY 12/18/19 02/17/20 History famotidine 20 mg tablet 20 mg PO DAILY 12/18/19 02/17/20 History folic acid 1 mg tablet 1 mg PO DAILY 12/18/19 02/17/20 History isosorbide mononitrate 60 mg 60 mg PO DAILY 12/18/19 02/17/20 History tablet,extended release 24 hr loratadine 10 mg capsule 10 mg PO DAILY 12/18/19 02/17/20 History magnesium gluconate 27 mg 27 mg PO DAILY tab 12/18/19 02/17/20 History magnesium (500 mg) tablet omega-3 fatty acids 1,000 mg 1,000 mg PO BID 12/18/19 02/17/20 History capsule quetiapine 50 mg tablet 50 mg PO BID 12/18/19 02/17/20 History tamsulosin 0.4 mg capsule 0.4 mg PO DAILY 12/18/19 02/17/20 History thiamine HCl (vitamin B1) 100 mg 100 mg PO DAILY 12/18/19 02/17/20 History tablet venlafaxine 37.5 mg 37.5 mg PO DAILY 12/18/19 02/17/20 History capsule,extended release 24 hr vitamin B complex 1 tab PO DAILY 12/18/19 02/17/20 History dexamethasone 4 mg PO BID 01/06/20 02/17/20 History Spiriva with HandiHaler 1 cap INHALATION DAILY 01/08/20 02/17/20 History albuterol sulfate [ProAir HFA] 1 inh INHALATION QID PRN 01/08/20 02/17/20 History ferrous sulfate 325 mg PO BID 01/08/20 02/17/20 History gabapentin 300 mg PO TID 01/08/20 02/17/20 History gabapentin 600 mg PO TID 01/08/20 02/17/20 History multivitamin 1 tab PO DAILY 01/08/20 02/17/20 History omeprazole 20 mg PO BID 01/08/20 02/17/20 History ondansetron HCl [Zofran] 8 mg PO Q8H PRN 01/08/20 02/17/20 History fluticasone propionate [Flovent] 1 puff INHALATION BID 02/17/20 02/17/20 History Physical Exam Vital Signs: Vital Signs: Last Vital Signs Temp 97.2 F 02/18/20 04:00 Pulse 77 02/18/20 04:00 Resp 14 02/18/20 04:00 BP 128/62 02/18/20 04:00 Pulse Ox 94 02/18/20 04:00 Body Mass Index 26.6 Const: General: cooperative, comfortable, awake, ill appearing and tired appearing Eyes: General: appearance normal, both eyes and all related structures Resp: Effort & Inspection: normal respiratory effort, Actively coughing and not tachypneic GI: Inspection: Yes normal to inspection Extrem: Other: right foot s/p revision TMA, clot at incision but no active bleeding identified. Some swelling of foot. Results Results Labs: Short CBC 02/17/20 Range/Units 16:47 WBC 14.5 H (4.8-10.8) X10*3/uL Hgb 10.4 L (14.0-18.0) g/dl Hct 33.8 L (42-52) % Plt Count 366 (160-400) X10*3/uL Assessment and Plan (1) Osteomyelitis of third toe of right foot: Status: Acute (2) Post-op bleeding: Status: Acute Patient admitted for observation after developing postoperative bleeding in the right foot. Pressure dressing applied which seems to be holding well with no additional bleeding. Will reassess in am for possible discharge vs. return to OR. Will hold ASA and plavix (3) Osteomyelitis of fourth toe of right foot: Status: Acute
--- NOTE | 2020-02-18 07:44 | PM.PNGS ---
Subjective Subjective Date of Service: 02/18/20 Interval history: Patient reports difficulty sleeping due to foot pain, no additional bleeding overnight. Physical Exam Vital Signs: Vital Signs: Last Vital Signs Temp 97.2 F 02/18/20 04:00 Pulse 77 02/18/20 04:00 Resp 14 02/18/20 04:00 BP 128/62 02/18/20 04:00 Pulse Ox 94 02/18/20 04:00 Body Mass Index 26.6 Const: General: cooperative; No comfortable Nutritional Appearance: thin Orientation/consciousness: patient oriented x3 Resp: Effort & Inspection: normal respiratory effort and no audible wheezes Neuro: General: patient oriented x3 Extrem: Other: right foot dressings are clean and intact without evidence of ongoing bleeding. Progress Note: A&P Assessment and plan (1) Post-op bleeding: Status: Acute Assessment and Plan: No evidence of ongoing bleeding overnight. Will return later today to change to foot dressings and decide if he is ready for discharge to home. Fall Risk Details Current Medications: Current Medications Generic Name Dose Route Start Last Admin Trade Name Freq PRN Reason Stop Dose Admin Acetaminophen 650 mg 02/17/20 19:49 Acetaminophen 325 Mg Tablet PO Q6H PRN Pain, Mild (Pain Scale 1-3) Lactated Ringer's 1,000 mls @ 80 mls/hr 02/17/20 20:45 02/18/20 07:30 Lr IVCONT 80 mls/hr .[id number] MOLLY Administration Lorazepam 0.5 mg 02/17/20 19:13 02/17/20 20:19 Lorazepam 0.5 Mg Tablet PO 0.5 mg Q8H PRN Administration Anxiety Morphine Sulfate 4 mg 02/17/20 21:09 02/18/20 06:25 Morphine Sulfate 4 Mg/Ml Cartridge IVPUSH 4 mg Q3H PRN Administration Pain, Severe (Pain Scale 7-10) Oxycodone HCl 5 mg 02/17/20 21:11 02/17/20 23:53 Oxycodone Hcl Immed Release 5 Mg Tablet PO 5 mg Q6H PRN Administration Pain, Moderate (Pain Scale 4-6 Pharmacy Consult 1 each 02/17/20 19:49 Consult Rx Perform Med Rec MISCELLANE ONCE PRN Consult order Sodium Chloride 3 ml 02/18/20 00:00 12/08/20 07:31 0.9 % Sodium Chloride Flush 3 Ml Syringe IVFLUSH Not Given QSHIFT MOLLY Zolpidem Tartrate 5 mg 02/17/20 21:12 Zolpidem Tartrate 5 Mg Tablet PO BEDTIME PRN Insomnia Time Spent With Patient Time: Total time spent is greater than 50% in coordination of care (as documented) at patient's floor/unit and/or counseling patient: Time with patient: 15 - 24 minutes
[2020-02-18 07:45] VITALS: BP 152/76; PULSE 83; TEMP 36.1; O2SAT 90
[2020-02-18 10:31] LABS: SLIDE REVIEW VERIFIED
[2020-02-18 11:31] VITALS: BP 159/82; PULSE 91; RESP 18; TEMP 36.3; O2SAT 93
[2020-02-18] MEDS: ondansetron HCL 4 MG/2 ML VIAL IVPUSH (11:44)
--- NOTE | 2020-02-18 12:27 | MHC.CM.PN ---
EMR reviewed, pt is alert and oriented, independent w/care and activities at baseline, pt lives with who can assist w/any post op issues. Pt reports he has 3 flights of stairs but was able to hobble up them and is fine once in apt, pt reports he used [facility] after initial surgery on 12/25 and would prefer them if ordered by physician. Pt requests to use hospital shuttle for transportation home which is his usual mode of transport to and from [facility]. Pt has HCP on file and PCP is Wendy Liu MD.
--- NOTE | 2020-02-18 17:09 | W.MHC.F2F ---
Service Date Service Date: 02/18/20 Encounter Date of encounter: 02/18/20 Encounter: Dressing change Reasons for Services Signs and symptoms assessed: Check wound for bleeding, infection Reason for half-way: wound care and postoperative assessment and/or care Reason for physical therapy: assess need for DME Overseeing Care: Roberto Londono Homebound: Leaving the home is medically contraindicated at this time without the asist of a device and/or another person due th the listed conditions above and below. Reason homebound: unsteady gait / fall risk, leg weakness, pain with ambulation and shortness of breath at rest Homebound supporting statement: S/p revision of right transmetatarsal amputation, unable to ambulate Certification: Based on the above findings, I certify that this patient is confined to the home and needs intermittent half-way care, physical therapy and/or speech therapy, or continues to need occupational therapy. The patient is under my care, and I have initiated the establishment of the plan of care. The patient will be followed by a physician who will periodically review the plan of care.
--- NOTE | 2020-02-18 17:11 | PM.DS ---
DS: Providers Provider Date of admission: 02/17/20 17:56 Primary care physician: Unknown Physician DS: Diagnosis Discharge Diagnosis (1) Post-op bleeding: Status: Acute (2) Osteomyelitis of third toe of right foot: Status: Acute (3) PAD (peripheral artery disease): Status: Acute (4) Non-small cell lung cancer with metastasis: Status: Acute DS: Medications Discharge Medications Home Medications: Home Medications Medication Instructions Recorded Confirmed aspirin 81 mg tablet,delayed 81 mg PO DAILY 12/18/19 02/17/20 release atorvastatin 40 mg tablet 40 mg PO BEDTIME 12/18/19 02/17/20 clopidogrel 75 mg tablet 75 mg PO DAILY 12/18/19 02/17/20 famotidine 20 mg tablet 20 mg PO DAILY 12/18/19 02/17/20 folic acid 1 mg tablet 1 mg PO DAILY 12/18/19 02/17/20 isosorbide mononitrate 60 mg 60 mg PO DAILY 12/18/19 02/17/20 tablet,extended release 24 hr loratadine 10 mg capsule 10 mg PO DAILY 12/18/19 02/17/20 magnesium gluconate 27 mg 27 mg PO DAILY tab 12/18/19 02/17/20 magnesium (500 mg) tablet omega-3 fatty acids 1,000 mg 1,000 mg PO BID 12/18/19 02/17/20 capsule quetiapine 50 mg tablet 50 mg PO BID 12/18/19 02/17/20 tamsulosin 0.4 mg capsule 0.4 mg PO DAILY 12/18/19 02/17/20 thiamine HCl (vitamin B1) 100 mg 100 mg PO DAILY 12/18/19 02/17/20 tablet venlafaxine 37.5 mg 37.5 mg PO DAILY 12/18/19 02/17/20 capsule,extended release 24 hr vitamin B complex 1 tab PO DAILY 12/18/19 02/17/20 dexamethasone 4 mg PO BID 01/06/20 02/17/20 Spiriva with HandiHaler 1 cap INHALATION DAILY 01/08/20 02/17/20 albuterol sulfate [ProAir HFA] 1 inh INHALATION QID PRN 01/08/20 02/17/20 ferrous sulfate 325 mg PO BID 01/08/20 02/17/20 gabapentin 300 mg PO TID 10/28/20 12/07/20 gabapentin 600 mg PO TID 01/08/20 02/17/20 multivitamin 1 tab PO DAILY 01/08/20 02/17/20 omeprazole 20 mg PO BID 01/08/20 02/17/20 ondansetron HCl [Zofran] 8 mg PO Q8H PRN 01/08/20 02/17/20 fluticasone propionate 1 puff INHALATION BID 02/17/20 02/17/20 Previous Rx's Medication Instructions Recorded oxycodone 5 mg PO Q6H PRN #14 tab 12/26/19 DS: Summary Hospital Course Hospital Course: Parviz Rosas is a 59 year old male well known to me with a history of Diabetes, PVD and osteomyelitis of the right foot, s/p revision of the transmetatarsal amputaion of the right foot on 02/17/2020. He was discharged to home and noted increased bleeding through the dressings after getting up to go to the bathroom. He presented to the ED and was found to have a large clot under the dressing. A new dressing was applied but he bleed through the second dressing with observation, therefore a pressure dressing was applied and he was admitted for observation. Overnight he reports right foot pain and difficulty sleeping. By the next hospital day, he reported some pain in the foot but there was no evidence of further bleeding from the wound. The dressings were changed and he was discharged to home. He will follow up in the office in one week. VNA has been requested for wound care services at home. A face-to face was completed. Time Spent with Patient Time attestation: Total time spent providing and/or coordinating discharge services: Physical Exam Vital Signs: Vital Signs: Last Vital Signs Temp 97.3 F 02/18/20 11:31 Pulse 91 02/18/20 11:31 Resp 18 02/18/20 11:31 BP 159/82 H 02/18/20 11:31 Pulse Ox 93 02/18/20 11:31 Body Mass Index 26.6 Const: General: cooperative, comfortable and well developed; No confusion Nutritional Appearance: well nourished Orientation/consciousness: patient oriented x3 and No confusion Eyes: Sclerae: sclerae normal EOM: EOMs intact bilaterally Neck: Neck: Yes normal visual inspection Resp: Effort & Inspection: normal respiratory effort, no cough and no respiratory distress Auscultation: rhonchi Cardio: Jugular venous distension: no JVD Rate: regular rate Rhythm: regular rhythm GI: Inspection: Yes normal to inspection Palpation (GI): Soft to palpation, nontender, no guarding and not rigid Percussion: Yes normal to percussion Auscultation: normal bowel sounds Skin: General skin exam: dry skin Rashes: no rashes Neuro: General: patient oriented x3, no focal motor deficits and No confusion Extrem: Other: right foot dressing clean and intact DS: Data Data Completed and Pending Labs on day of discharge: 02/17/20 16:47 Complete Blood Count Auto Diff Stat Partial Thromboplastin Time Stat Prothrombin Time INR Stat 02/17/20 17:50 Transfer Order Routine 02/17/20 19:49 oxyCODONE HCl Immed Release [Roxicodone] 5 mg PO Q6H PRN 02/18/20 06:16 Complete Blood Count Auto Diff DAILY@0600 SLIDE REVIEW Routine Laboratory Last Values WBC 16.2 X10*3/uL (4.8-10.8) H 02/18/20 06:16 RBC 3.66 X10*6/uL (4.60-5.80) L 02/18/20 06:16 Hgb 11.2 g/dl (14.0-18.0) L 02/18/20 06:16 Hct 35.5 % (42-52) L 02/18/20 06:16 MCV 97.0 fL (80-98) 02/18/20 06:16 MCH 30.6 pg (27.0-33.0) 02/18/20 06:16 MCHC 31.5 g/dl (31.0-36.0) 02/18/20 06:16 RDW 16.9 % (11.0-16.0) H 02/18/20 06:16 Plt Count 587 X10*3/uL (160-400) H D 02/18/20 06:16 MPV 8.7 fL (9.4-12.4) L 02/18/20 06:16 Immature Gran % (Auto) 0.5 % (0.0-0.4) H 02/18/20 06:16 Neut % (Auto) 71.9 % (45-73) 02/18/20 06:16 Lymph % (Auto) 15.8 % (20-40) L 02/18/20 06:16 [place] % (Auto) 9.6 % (2-11) 02/18/20 06:16 Eos % (Auto) 1.9 % (0-4) 02/18/20 06:16 Baso % (Auto) 0.3 % (0-2) 02/18/20 06:16 Lymph # (Auto) 2.6 X10*3/uL (1.2-4.9) 02/18/20 06:16 [place] # (Auto) 1.6 X10*3/uL (0.1-1.2) H 02/18/20 06:16 Eos # (Auto) 0.3 X10*3/uL (0.0-0.4) 02/18/20 06:16 Baso # (Auto) 0.1 X10*3/uL (0.0-0.2) 02/18/20 06:16 Abs Immat Gran (auto) 0.08 X10*3/uL (0.00-0.03) H 02/18/20 06:16 Absolute Neuts (auto) 11.6 X10*3/uL (2.0-8.3) H 02/18/20 06:16 Absolute Nucleated RBC 0.000 X10*3/uL (0.0-0.012) 02/18/20 06:16 Nucleated RBC % (auto) 0.0 /100WBC (0.0-0.2) 02/18/20 06:16 Smear Tech's Comments VERIFIED 02/18/20 06:16 PT 13.4 SEC (10.8-13.0) H 02/17/20 16:47 INR 1.1 (0.9-1.1) 02/17/20 16:47 APTT 61.9 SEC (24.1-38.0) H* 02/17/20 16:47 Discharge Plan Discharge Patient Disposition: Home Health Service Referrals: Wendy Liu MD [Physician] - 1 Month (Tele 02/25/2020 1:30pm will call you to discuss your hospital stay.) Roberto Londono MD [Physician] - 1 Week (tomorrow morning) Discharge Medications: Continued dexamethasone 4 mg Tablet 4 mg PO BID RF: 0 ferrous sulfate 325 mg (65 mg iron) Tablet 325 mg PO BID RF: 0 multivitamin Tablet 1 tab PO DAILY RF: 0 gabapentin 600 mg Tablet 600 mg PO TID RF: 0 albuterol sulfate [ProAir HFA] 90 mcg/actuation Hfa Aerosol Inhaler 1 inh INHALATION QID PRN (Reason: Shortness Of Breath Or Wheezing) RF: 0 Spiriva with HandiHaler 18 mcg Capsule, W/Inhalation Device 1 cap INHALATION DAILY RF: 0 gabapentin 300 mg Tablet 300 mg PO TID RF: 0 omeprazole 20 mg Tablet,Delayed Release (Dr/Ec) 20 mg PO BID RF: 0 ondansetron HCl [Zofran] 4 mg tablet 8 mg PO Q8H PRN (Reason: Nausea) RF: 0 oxycodone 5 mg tablet 5 mg PO Q6H PRN (Reason: Foot pain) Qty: 14 RF: 0 fluticasone propionate 110 mcg/actuation Hfa Aerosol Inhaler 1 puff INHALATION BID RF: 0 aspirin [Adult Low Dose Aspirin] 81 mg tablet,delayed release (DR/EC) 81 mg PO DAILY RF: 0 loratadine 10 mg capsule 10 mg PO DAILY RF: 0 folic acid 1 mg tablet 1 mg PO DAILY RF: 0 omega-3 fatty acids [Fish Oil Concentrate] 1,000 mg capsule 1,000 mg PO BID RF: 0 vitamin B complex [B Complex-Vitamin B12] Tablet 1 tab PO DAILY RF: 0 thiamine HCl (vitamin B1) 100 mg tablet 100 mg PO DAILY RF: 0 venlafaxine 37.5 mg capsule,extended release 24hr 37.5 mg PO DAILY RF: 0 tamsulosin 0.4 mg capsule 0.4 mg PO DAILY RF: 0 quetiapine 50 mg tablet 50 mg PO BID RF: 0 magnesium gluconate [Mag-G] 27 mg magnesium (500 mg) tablet 27 mg PO DAILY RF: 0 isosorbide mononitrate 60 mg tablet extended release 24 hr 60 mg PO DAILY RF: 0 famotidine 20 mg tablet 20 mg PO DAILY RF: 0 clopidogrel 75 mg tablet 75 mg PO DAILY RF: 0 atorvastatin 40 mg tablet 40 mg PO BEDTIME RF: 0 Discharge Orders: Discharge Order (Routine); Ordered 02/18/20 Ordered By: Roberto Londono Diet: advance to usual diet Activity on Discharge: Use cane or walker Patient Instructions: Acute Wounds (ED) Discharge Date/Time: 02/18/20 17:31 Activity Restrictions/Additional Instructions: No pressure on forefoot. Dressings changes with fluffs, abdominal dressing, kerlix wrap and JULITO wrap daily and PRN. Visit Report Forms: Patient Portal Discharge page Care Plan Goals: Heal right foot Health Concerns: Diabetes, PVD Plan of Treatment: Continued local wound care
--- NOTE | 2020-02-19 08:46 | MHC.CM.PN ---
NURSE RESEARCH ANIMAL ATTENDANT NOTE ELECTRONIC MEDICAL RECORD REVIEWED ,NOTED PATIENT HAD BEEN DISCHARGED HOME LAST NIGHT AFTER CASE MANAGEMENT LEFT. THE SURGEON WROTE ORDERS FOR HOME VNA FOR DRESSING CHANGES , WHEN CASE MANAGEMENT MET WITH PATIENT YESTERDAY HE AGREED TO HAVE THE [facility] FOR NURSING IF NEEDED HE HAD THEM IN JANUARY 2020. THE SURGEON WRITE FOR DRESSING CHANGES PER D/C ORDERS . [facility] SPOKE WITH DONITA ABOUT THIS PATIENT VIA [employer] UPLOADED THE HISTORY AND PHYSICAL THE DISCHARGE PACKET AND THE DISCHARGE SUMMARY AND FACE TO FACE TO THE [facility] , THEY WILL CALL HIM FOR WHEN THEY WILL VISIST. CASE MANAGEEMENT CO WORKER CALLED TO HIS HOME PHONE AND LEFT VOICE MESSAGE ABOUT THE ABOVE AND HOW TO REACH THE [facility] DISCHARGE LATE [facility] FOR DRESSING CHANGES PCP [facility]
== END 2020-02-18 17:31 | disposition home health service (06) ==
LOC: HO.ED 18:12 → HO.S3 18:21
PROVIDERS: Physician Assistant; Admitting Provider Surgery; Emergency Provider Internal Medicine; Visit Provider Surgery
DX: M79.671 Pain in right foot (principal); G47.33 Obstructive sleep apnea (adult) (pediatric); L76.22 Postprocedural hemorrhage of skin and subcutaneous tissue following other procedure; M86.171 Other acute osteomyelitis, right ankle and foot; E11.621 Type 2 diabetes mellitus with foot ulcer; E11.51 Type 2 diabetes mellitus with diabetic peripheral angiopathy without gangrene; L97.419 Non-pressure chronic ulcer of right heel and midfoot with unspecified severity; I73.9 Peripheral vascular disease, unspecified; E78.5 Hyperlipidemia, unspecified; I25.10 Atherosclerotic heart disease of native coronary artery without angina pectoris; I10 Essential (primary) hypertension; C80.1 Malignant (primary) neoplasm, unspecified; C78.00 Secondary malignant neoplasm of unspecified lung; K21.9 Gastro-esophageal reflux disease without esophagitis; F17.210 Nicotine dependence, cigarettes, uncomplicated; Z89.421 Acquired absence of other right toe(s); Z88.8 Allergy status to other drugs, medicaments and biological substances; Z79.899 Other long term (current) drug therapy
CPT/HCPCS: 36415; 85025; 85610; 85730; 96361; 96374; 96375; 99024; 99218; 99285; J2270; J2405

== ENCOUNTER → 2020-03-05 10:22 | Outpatient (BNVA) | payer MEDICAID, SELFPAY | PROVIDERS: PCP Family Medicine; Visit Provider Surgery | DX: M86.9 Osteomyelitis, unspecified (principal) | CPT/HCPCS: 99212 ==

== ENCOUNTER → 2020-03-18 15:34 | Outpatient (BNVA) | payer MEDICAID, SELFPAY | PROVIDERS: PCP Family Medicine; Visit Provider Surgery | DX: M86.9 Osteomyelitis, unspecified (principal) | CPT/HCPCS: 99212 ==

== ENCOUNTER 2020-03-27 21:33 | Emergency (ER) | payer MEDICAID, SELFPAY ==
--- NOTE | 2020-03-27 | ECG_ITS ---
Test Reason : CHEST PAIN Blood Pressure : / mmHG Vent. Rate : 114 BPM Atrial Rate : 114 BPM P-R Int : 164 ms QRS Dur : 096 ms QT Int : 330 ms P-R-T Axes : 042 -20 026 degrees QTc Int : 454 ms Sinus tachycardia Possible Septal infarct , age undetermined Abnormal ECG When compared to the previous EKG of qS pattern in laeds V1-V2 noted Referred By: Generic ED Physician Electronically Signed By:RICHAR MELVIN MD
[2020-03-27 21:44] VITALS: BP 119/70; BP 124/66; PULSE 114; PULSE 120; RESP 16; TEMP 37.6; O2SAT 91; O2SAT 99; BMI 25.2
--- NOTE | 2020-03-27 21:58 | ED_ITS ---
HPI - Chest Pain General Chief Complaint: Chest Pain Stated Complaint: CHEST/THROAT PAIN H/O CA Time Seen by Provider: 03/27/20 21:48 Source: patient Mode of arrival: EMS History of Present Illness HPI narrative: This is a 59-year-old male with multiple comorbidities that include diabetes, known ?blockage? at the ?lower part of his heart? that patient declined intervention with cardiac catheterization, and stage 4 metastatic lung CA who presents with onset of chest pressure, nonradiating, that started at approximately 6:00 p.m. this evening and had been preceded by a sore throat that he states happens ?sometimes?. Otherwise, patient denies any dizziness, nausea, diaphoresis, but states that he did experience difficulty breathing. He took 800 mg of Motrin which he states did not help and then proceeded to call EMS and received 324 mg of aspirin EN route. Patient states his pain has almost completely resolved at this time and denies any GI symptoms or symptoms with this episode of chest pain. He clearly states that he wishes to be a full code. Related Data Home Medications Medication Instructions Recorded Confirmed aspirin 81 mg tablet,delayed 81 mg PO DAILY 12/18/19 03/05/20 release atorvastatin 40 mg tablet 40 mg PO BEDTIME 12/18/19 03/05/20 clopidogrel 75 mg tablet 75 mg PO DAILY 12/18/19 03/05/20 famotidine 20 mg tablet 20 mg PO DAILY 12/18/19 03/05/20 folic acid 1 mg tablet 1 mg PO DAILY 12/18/19 03/05/20 isosorbide mononitrate 60 mg 60 mg PO DAILY 12/18/19 03/05/20 tablet,extended release 24 hr loratadine 10 mg capsule 10 mg PO DAILY 12/18/19 03/05/20 magnesium gluconate 27 mg 27 mg PO DAILY tab 12/18/19 03/05/20 magnesium (500 mg) tablet omega-3 fatty acids 1,000 mg 1,000 mg PO BID 12/18/19 03/05/20 capsule quetiapine 50 mg tablet 50 mg PO BID 12/18/19 03/05/20 tamsulosin 0.4 mg capsule 0.4 mg PO DAILY 12/18/19 03/05/20 thiamine HCl (vitamin B1) 100 mg 100 mg PO DAILY 12/18/19 03/05/20 tablet venlafaxine 37.5 mg 37.5 mg PO DAILY 12/18/19 03/05/20 capsule,extended release 24 hr vitamin B complex 1 tab PO DAILY 12/18/19 03/05/20 dexamethasone 4 mg PO BID 01/06/20 03/05/20 Spiriva with HandiHaler 1 cap INHALATION DAILY 01/08/20 03/05/20 albuterol sulfate [ProAir HFA] 1 inh INHALATION QID PRN 01/08/20 03/05/20 ferrous sulfate 325 mg PO BID 01/08/20 03/05/20 gabapentin 300 mg PO TID 01/08/20 03/05/20 gabapentin 600 mg PO TID 01/08/20 03/05/20 multivitamin 1 tab PO DAILY 01/08/20 03/05/20 omeprazole 20 mg PO BID 01/08/20 03/05/20 ondansetron HCl [Zofran] 8 mg PO Q8H PRN 01/08/20 03/05/20 fluticasone propionate 1 puff INHALATION BID 02/17/20 03/05/20 Previous Rx's Medication Instructions Recorded oxycodone 5 mg PO Q6H PRN #14 tab 12/26/19 Allergies Allergy/AdvReac Type Severity Reaction Status Date / Time lisinopril [LISINOPRIL] Allergy Intermediate BLEEDING Verified 01/23/20 15:44 IN MOUTH,SWELLING Josh inhibitors Allergy Unknown Unknown Uncoded 12/18/19 11:48 Review of Systems Review of Systems: Pertinent positives and negatives as stated in the HPI and 10 point review of systems is otherwise negative. FORMERLY [facility] Past Medical History Source: nursing notes reviewed Medical History Amputation of one or more toes BPH (benign prostatic hyperplasia) Bronchitis, chronic CAD (coronary artery disease) COPD (chronic obstructive pulmonary disease) Depression Diabetes type 2 with atherosclerosis of arteries of extremities GERD (gastroesophageal reflux disease) Hyperlipidemia Hypertension Lung cancer SHANIQUA (obstructive sleep apnea) Peripheral neuropathy PVD (peripheral vascular disease) Smoker Surgical History History of angioplasty History of bronchoscopy History of cholecystectomy History of hernia repair History of removal of cyst History of tonsillectomy Osteomyelitis of fourth toe of right foot Family History Family History Father History of lung cancer Mother History of hypertension Family history of Alzheimer's disease Maternal Uncle History of colon cancer Social History Social History Household Members: Spouse Housing: Apartment Alcohol intake: never Smoking Status: Current every day smoker Tobacco Type: Cigarette Packs Per Day: 2 Cigarettes Per Day: 40.0 Years Smoked: 45 years Use of substances other than those prescribed or required for medical reasons: Yes Substance Use Type: Marijuana Advance Directives: Yes Advance Directives on File: Yes Advance Directives Date on File: 04/14/09 service: No Current occupational status: unemployed Physical Exam Vital Signs: Vital Signs: Last Vital Signs Temp 98.8 F 03/28/20 05:37 Pulse 89 03/28/20 05:37 Resp 18 03/28/20 05:37 BP 117/76 03/28/20 05:37 Pulse Ox 96 03/28/20 05:37 Body Mass Index 25.2 VITAL SIGNS: Reviewed. GENERAL: Cachectic, chronically ill, no acute distress. HEAD: Normocephalic/atraumatic, EYES: PERRLA, EOMI intact without pain, no nystagmus/pallor/icterus noted EARS: Ext canals without abnormality, TMs non-bulging and non-erythematous NOSE: Nares patent bilateral OROPHARYNX: no oral lesions noted, posterior pharynx clear and non-erythematous without noted tonsillar enlargement/erythema/exudates NECK: Supple, no adenopathy LUNGS: Normal breath sounds. No adventitious sounds or accessory muscle use. SpO2<91> place on 2 L of oxygen and improved to 94%. CARDIOVASCULAR: Regular rate and rhythm without noted murmurs ABDOMEN: Soft, non-tender, non-distended with bowel sounds. MUSCULOSKELETAL: Patient with dressing and podiatry shoe on the right lower extremity consistent with history of recent toe OM EXTREMITIES: No cyanosis, clubbing or edema. SKIN: Inspection of the skin reveals no rashes NEUROLOGIC: Alert and oriented x 4. Course Course Course Narrative: This is a 59-year-old male with history and clinical presentation consistent with possible ischemic event given the change in the septal leads with Q-waves noted that is not consistent on comparison with EKG from 06/27/2019 but it is noted that patient had declined intervention and has been compliant with his medication of aspirin/Plavix. In addition, there is a possibility that patient has COVID-19, PE given underlying cancer, and these will be ruled out. All investigations were reviewed and patient with significant leukocytosis in the presence of negative COVID-19 swab and lactic acid is within normal limits and therefore does not need sepsis level fluids. Antibiotics Zosyn as well as vancomycin were provided due to findings on CTA of the chest for elevated D- dimer which showed filling defects within the bronchi suspicious for possible aspiration pneumonia in the lower lobes. The CTA was negative for any evidence PE, high sensitivity troponins were lateral without any acute changes on EKG when compared to prior. I discussed this case with the inpatient hospitalist team who is agreeable for admission with acute respiratory failure with hypoxemia requiring nasal cannula and CTA of the chest showing lower lobe pneumonia concerning for possible aspiration. Patient has been otherwise hemodynamically stable and has continued to remain chest pain free. MDM - Chest Pain Lab Data Result diagrams: 03/27/20 22:35 03/27/20 22:35 Labs: Lab Results 03/27/20 03/27/20 03/27/20 Range/Units 22:35 22:35 22:35 WBC 23.0 H (4.8-10.8) X10*3/uL RBC 3.58 L (4.60-5.80) X10*6/uL Hgb 10.9 L (14.0-18.0) g/dl Hct 33.3 L (42-52) % MCV 93.0 (80-98) fL MCH 30.4 (27.0-33.0) pg MCHC 32.7 (31.0-36.0) g/dl RDW 15.2 (11.0-16.0) % Plt Count 430 H D (160-400) X10*3/uL MPV 8.6 L (9.4-12.4) fL Immature Gran % (Auto) 0.6 H (0.0-0.4) % Neut % (Auto) 84.6 H (45-73) % Lymph % (Auto) 4.4 L (20-40) % [place] % (Auto) 10.0 (2-11) % Eos % (Auto) 0.2 (0-4) % Baso % (Auto) 0.2 (0-2) % Lymph # (Auto) 1.0 L (1.2-4.9) X10*3/uL [place] # (Auto) 2.3 H (0.1-1.2) X10*3/uL Eos # (Auto) 0.0 (0.0-0.4) X10*3/uL Baso # (Auto) 0.1 (0.0-0.2) X10*3/uL Abs Immat Gran (auto) 0.13 H (0.00-0.03) X10*3/uL Absolute Neuts (auto) 19.5 H (2.0-8.3) X10*3/uL Absolute Nucleated RBC 0.000 (0.0-0.012) X10*3/uL Nucleated RBC % (auto) 0.0 (0.0-0.2) /100WBC Smear Tech's Comments VERIFIED PT (10.8-13.0) SEC INR (0.9-1.1) APTT (24.1-38.0) SEC D-Dimer NG/ML Sodium 133 L (135-145) mmol/L Potassium 3.9 (3.3-5.1) mmol/l Chloride 99 (96-108) mmol/L Carbon Dioxide 23 (22-29) mmol/L Anion Gap 15 (12-20) BUN 8 L (9-16) mg/dL Creatinine 0.72 (0.5-1.4) mg/dL Estim Creat Clear Calc 112.6 Estimated GFR > 60 Random Glucose 151 H (60-115) mg/dL Lactic Acid (0.5-2.0) mmol/L Calcium 8.0 L (8.4-10.2) mg/dL Total Bilirubin 0.5 (0.0-1.0) mg/dL AST 15 (5-37) U/L ALT 12 (0-40) U/L Alkaline Phosphatase 219 H (39-117) U/L Troponin I High Sens 9.0 (<3.5-35.0) ng/L Total Protein 6.5 (6.5-8.0) g/dL Albumin 3.9 (3.5-5.0) g/dL Coronavirus (PCR) (Negative) Influenza Type A (PCR) (Negative) Influenza Type B (PCR) (Negative) RSV RNA Qual (PCR) (Negative) 03/27/20 03/27/20 03/27/20 Range/Units 23:44 23:44 23:44 WBC (4.8-10.8) X10*3/uL RBC (4.60-5.80) X10*6/uL Hgb (14.0-18.0) g/dl Hct (42-52) % MCV (80-98) fL MCH (27.0-33.0) pg MCHC (31.0-36.0) g/dl RDW (11.0-16.0) % Plt Count (160-400) X10*3/uL MPV (9.4-12.4) fL Immature Gran % (Auto) (0.0-0.4) % Neut % (Auto) (45-73) % Lymph % (Auto) (20-40) % [place] % (Auto) (2-11) % Eos % (Auto) (0-4) % Baso % (Auto) (0-2) % Lymph # (Auto) (1.2-4.9) X10*3/uL [place] # (Auto) (0.1-1.2) X10*3/uL Eos # (Auto) (0.0-0.4) X10*3/uL Baso # (Auto) (0.0-0.2) X10*3/uL Abs Immat Gran (auto) (0.00-0.03) X10*3/uL Absolute Neuts (auto) (2.0-8.3) X10*3/uL Absolute Nucleated RBC (0.0-0.012) X10*3/uL Nucleated RBC % (auto) (0.0-0.2) /100WBC Smear Tech's Comments PT 14.6 H (10.8-13.0) SEC INR 1.2 H (0.9-1.1) APTT 51.3 H (24.1-38.0) SEC D-Dimer 386 NG/ML Sodium (135-145) mmol/L Potassium (3.3-5.1) mmol/l Chloride (96-108) mmol/L Carbon Dioxide (22-29) mmol/L Anion Gap (12-20) BUN (9-16) mg/dL Creatinine (0.5-1.4) mg/dL Estim Creat Clear Calc Estimated GFR Random Glucose (60-115) mg/dL Lactic Acid 0.7 (0.5-2.0) mmol/L Calcium (8.4-10.2) mg/dL Total Bilirubin (0.0-1.0) mg/dL AST (5-37) U/L ALT (0-40) U/L Alkaline Phosphatase (39-117) U/L Troponin I High Sens (<3.5-35.0) ng/L Total Protein (6.5-8.0) g/dL Albumin (3.5-5.0) g/dL Coronavirus (PCR) NEGATIVE (Negative) Influenza Type A (PCR) NEGATIVE (Negative) Influenza Type B (PCR) NEGATIVE (Negative) RSV RNA Qual (PCR) NEGATIVE (Negative) 03/28/20 Range/Units 01:12 WBC (4.8-10.8) X10*3/uL RBC (4.60-5.80) X10*6/uL Hgb (14.0-18.0) g/dl Hct (42-52) % MCV (80-98) fL MCH (27.0-33.0) pg MCHC (31.0-36.0) g/dl RDW (11.0-16.0) % Plt Count (160-400) X10*3/uL MPV (9.4-12.4) fL Immature Gran % (Auto) (0.0-0.4) % Neut % (Auto) (45-73) % Lymph % (Auto) (20-40) % [place] % (Auto) (2-11) % Eos % (Auto) (0-4) % Baso % (Auto) (0-2) % Lymph # (Auto) (1.2-4.9) X10*3/uL [place] # (Auto) (0.1-1.2) X10*3/uL Eos # (Auto) (0.0-0.4) X10*3/uL Baso # (Auto) (0.0-0.2) X10*3/uL Abs Immat Gran (auto) (0.00-0.03) X10*3/uL Absolute Neuts (auto) (2.0-8.3) X10*3/uL Absolute Nucleated RBC (0.0-0.012) X10*3/uL Nucleated RBC % (auto) (0.0-0.2) /100WBC Smear Tech's Comments PT (10.8-13.0) SEC INR (0.9-1.1) APTT (24.1-38.0) SEC D-Dimer NG/ML Sodium (135-145) mmol/L Potassium (3.3-5.1) mmol/l Chloride (96-108) mmol/L Carbon Dioxide (22-29) mmol/L Anion Gap (12-20) BUN (9-16) mg/dL Creatinine (0.5-1.4) mg/dL Estim Creat Clear Calc Estimated GFR Random Glucose (60-115) mg/dL Lactic Acid (0.5-2.0) mmol/L Calcium (8.4-10.2) mg/dL Total Bilirubin (0.0-1.0) mg/dL AST (5-37) U/L ALT (0-40) U/L Alkaline Phosphatase (39-117) U/L Troponin I High Sens 8.1 (<3.5-35.0) ng/L Total Protein (6.5-8.0) g/dL Albumin (3.5-5.0) g/dL Coronavirus (PCR) (Negative) Influenza Type A (PCR) (Negative) Influenza Type B (PCR) (Negative) RSV RNA Qual (PCR) (Negative) ECG Data ECG #1: Attestation: I personally reviewed and interpreted this ECG as follows: Prior ECG tracings: available for review (06/27/2019 there are acute changes on comparison as the Q-waves were noted on prior EKG) Ischemic changes: q waves (V1, V2, V3) Interpretation: Sinus tachycardia, HR -114, ME/QRS/QTC within normal limits. Discharge Plan Discharge Clinical Impression: Acute respiratory failure with hypoxemia Pneumonia Qualifiers: Pneumonia type: due to unspecified organism Laterality: unspecified laterality Lung location: lower lobe of lung Qualified Code(s): J18.9 - Pneumonia, unspecified organism Patient Disposition: Admitted As Inpatient
--- NOTE | 2020-03-27 22:01 | XR_ITS ---
EXAMINATION: XR CHEST CLINICAL INFORMATION: Chest pain COMPARISON: Chest radiograph 03/12/[address] 05/15/2019 TECHNIQUE: Frontal view of the chest was obtained. FINDINGS: Heart size normal. Bibasilar atelectasis is seen, improved at the left lung base and slightly worse at the right lung base. No CHF or effusions. XR/XR chest 1V IMPRESSION: Bibasilar atelectasis. No acute intrathoracic disease.
[2020-03-27 22:43] LABS: Basophils Absolute Auto 0.1 X10*3/uL (0.0-0.2); Basophils Percent Auto 0.2 % (0-2); Eosinophils Percent Auto 0.2 % (0-4); Hematocrit 33.3 % (42-52); Hemoglobin 10.9 g/dl (14.0-18.0); Imm Gran Abs Auto 0.13 X10*3/uL (0.00-0.03); Imm Gran Pct Auto 0.6 % (0.0-0.4); Lymphocytes Percent Auto 4.4 % (20-40); MANUAL DIFF FLAG SCAN; Mean Corpuscular HGB Conc 32.7 g/dl (31.0-36.0); Mean Corpuscular Hemoglobin 30.4 pg (27.0-33.0); Mean Platelet Volume 8.6 fL (9.4-12.4); Monocytes Absolute Auto 2.3 X10*3/uL (0.1-1.2); Neutrophils Absolute Auto 19.5 X10*3/uL (2.0-8.3); Neutrophils Percent Auto 84.6 % (45-73); Platelet Count 430 X10*3/uL (160-400); Red Blood Count 3.58 X10*6/uL (4.60-5.80); Red Cell Distribution Width 15.2 % (11.0-16.0); SCAN SMEAR FLAG 1
[2020-03-27 22:46] VITALS: BP 111/63; PULSE 105; RESP 20; O2SAT 94
[2020-03-27 22:52] VITALS: PULSE 104
[2020-03-27 23:02] LABS: Alanine Aminotransferase 12 U/L (0-40); Albumin Level 3.9 g/dL (3.5-5.0); Alkaline Phosphatase 219 U/L (39-117); Anion Gap 15 (12-20); Aspartate Amino Transferase 15 U/L (5-37); Bilirubin Total 0.5 mg/dL (0.0-1.0); Blood Urea Nitrogen 8 mg/dL (9-16); Carbon Dioxide 23 mmol/L (22-29); Chloride 99 mmol/L (96-108); Creatinine Clr Calc Pharmacy 112.6; Estimated Glomerular Filt Rate > 60; Glucose Random 151 mg/dL (60-115); Potassium 3.9 mmol/l (3.3-5.1); Sodium 133 mmol/L (135-145); Total Protein 6.5 g/dL (6.5-8.0)
[2020-03-27 23:39] LABS: SLIDE REVIEW VERIFIED
[2020-03-28] VITALS (9 sets, daily range): BP systolic 108–150; BP diastolic 65–79; PULSE 85–96; RESP 16–20; TEMP 36.3–37.1; O2SAT 91–97
[2020-03-28 00:17] LABS: Lactic Acid 0.7 mmol/L (0.5-2.0)
[2020-03-28 00:37] LABS: Influenza A PCR NEGATIVE (Negative); Influenza B PCR NEGATIVE (Negative); Resp Syncy Virus RNA Qual PCR NEGATIVE (Negative); SARS COV2 PCR INHOUSE NEGATIVE (Negative)
[2020-03-28 00:54] LABS: D Dimer 386 NG/ML; Partial Thromboplastin Time 51.3 SEC (24.1-38.0)
--- NOTE | 2020-03-28 01:08 | CT_ITS ---
EXAMINATION: CT ANGIOGRAM OF THE CHEST WITH AND WITHOUT CONTRAST (CT PULMONARY ANGIOGRAM FOR PE) CT ABDOMEN PELVIS WITH CONTRAST CLINICAL INFORMATION: SOB, chest pain, abdominal discomfort COMPARISON: PET-CT dated 12/03/2019, CT chest from 06/04/2019, CT abdomen and pelvis dated 03/08/2018 TECHNIQUE: Prior to contrast administration, noncontrast localization images were obtained. Subsequently, multidetector volumetric imaging was performed from the thoracic inlet to the pubic symphysis through the chest, abdomen, and pelvis following the administration of 85.2 mL Omnipaque 350 intravenous contrast. No contrast reaction reported Sagittal, coronal, and MIP oblique sagittal (through the chest only) reformatted images were obtained on the CT workstation, uploaded to PACS, and reviewed. Total exam dose-length product: 827 mGy-cm FINDINGS: QUALITY OF STUDY/CONTRAST BOLUS: Satisfactory. PULMONARY ARTERIES: No central or segmental pulmonary emboli. THORACIC AORTA: Calcific atherosclerosis is present of the thoracic aorta without aneurysmal dilatation. No dissection. LUNG: There is moderate to severe diffuse centrilobular emphysema with an upper lobe predominance. The round 1.9 cm nodule within the lateral aspect of the right upper lobe on image 163 of series 8 is unchanged in size from prior. There is a adjacent 7 mm spiculated component along its cephalad margin (image 141) which was not well seen on the prior PET CT but is decreased in size from [address] from 05/15/2019. Patchy groundglass opacities are present in the lower lobes along with more reticular opacifications and atelectasis. Filling defects are present within multiple bronchi in the lower lobes, raising the possibility of aspiration. PLEURA: No pleural effusion or pneumothorax. MEDIASTINUM: Small pericardial effusion. Normal heart size. A 1.9 cm subcarinal lymph node appears unchanged from prior. There is a right hilar lymph node measuring approximately 2 cm in short axis which is not well-seen on prior unenhanced studies. The right lower paratracheal lymph node measuring 1.5 cm in short axis is unchanged from the prior PET and CT . Additional prominent lymph nodes are present in the region of the AP window, similar to prior. No evidence of septal bowing or right heart strain. CHEST WALL/AXILLA: No axillary or internal mammary lymphadenopathy. ABDOMEN/PELVIS: LIVER, GALLBLADDER AND BILIARY TREE: The liver is normal in size, shape, and attenuation. No focal hepatic lesion or biliary ductal dilatation is present. Status post cholecystectomy. PANCREAS: The pancreatic duct is mildly dilated. A dense 1.6 cm calcification is present within the region of the pancreatic duct at the pancreatic body. Multiple additional calcifications regional increase in size as compared to prior. 2 cysts within the pancreatic neck and body measuring 1.5 and 1.7 cm in diameter, better seen on the current study than on the prior. SPLEEN: Normal size. No focal lesion. ADRENAL GLANDS: Normal; no mass. KIDNEYS AND URETERS: There is marked perirenal fat stranding bilaterally. Kidneys are normal in size with a lobulation bilaterally. There is a complex 2.3 cm cystic lesion in the anterior margin of the left lower renal pole which is increased in size from 1.9 cm in 2018. 2 punctate renal calculi are present in the right kidney, measuring 2 and 3 mm in diameter. No obstructing nephrolithiasis. No hydronephrosis or hydroureter. GASTROINTESTINAL TRACT: The, small bowel, and colon are normal in caliber. No bowel wall thickening. There is moderate colonic diverticulosis, most pronounced in the sigmoid colon. Appendix is normal. No intraperitoneal free fluid or free air. ABDOMINAL WALL: Small fat-containing left inguinal hernia. LYMPHOVASCULAR STRUCTURES: Calcific atherosclerosis is present in the abdominal aorta and iliac arteries as well as the visceral branches. No aneurysmal dilatation. Flow limiting stenoses are suspected in the common iliac arteries bilaterally. BLADDER: Full. No focal mass or wall thickening seen. No bladder calculi. PELVIC VISCERA: Small dystrophic calcification is an abnormal prostate. Prostate gland is otherwise unremarkable. OSSEOUS STRUCTURES: Again seen are fractures of the right pubic bone in the parasymphyseal right inferior pubic ramus, similar to prior. These have not yet healed. No additional fractures are identified in the pelvis. Healed fractures are present within multiple right-sided ribs. There is mild osteoarthritis in the hips and SI joints. Mild/moderate multilevel degenerative spondylosis is most notable in the thoracic spine with chronic anterior wedging of the T7 vertebral body. No acute vertebral fractures are identified. Marked facet arthropathy is present in the lumbar spine on the right at L4-L5. CT/CT angio chest PE protocol IMPRESSION: Chest: 1. No evidence of pulmonary emboli. 2. Patchy groundglass opacities within the lower lobes with reticular consolidation and atelectasis. Given the presence of filling defects within the lower lobe bronchi, aspiration is a consideration. Viral pneumonia is also on the differential. 3. No significant change in the pulmonary lesions and mediastinal adenopathy as compared to prior. 4. Moderate to severe centrilobular emphysema. 5. Small pericardial effusion Abdomen and pelvis: 1. Dense calcifications within the pancreatic head have increased in size over multiple prior studies and produce mild pancreatic ductal dilatation. No evidence of pancreatitis. Two cystic pancreatic lesions are also noted, better seen now than on prior studies. Consider follow-up MRI of the abdomen with and without contrast on a nonemergent basis for further assessment. A complex cystic lesion in the left kidney could also be better assessed with this MRI. 2. Marked bilateral perinephric fat stranding is of uncertain etiology and is similar to prior. No evidence of obstructive uropathy. Nonobstructing nephrolithiasis is present at the right kidney. 3. Mild colonic diverticulosis without evidence of acute diverticulitis. 4. Chronic fractures of the right pubic bone without appreciable healing. VTE: negative
[2020-03-28 01:40] LABS: INTERNATIONAL NORM RATIO 1.2 (0.9-1.1); Prothrombin Time 14.6 SEC (10.8-13.0)
[2020-03-28 01:52] LABS: Troponin-I High Sensitivity 8.1 ng/L (<3.5-35.0)
[2020-03-28] MEDS: iohexoL 350 MG/ML 100 ML INFUS..BTL 85 ML IV (02:39)
[2020-03-28 05:54] LABS: Glucose Urine UA NEG (NEG); Leukocyte Esterase Urine NEG (NEG); Nitrite Urine NEG (NEG); Specific Gravity - Urine <= 1.005 (1.005-1.025); Urine Blood TRACE (NEG); Urine Ketones NEG (NEG); Urine Protein NEG (NEG-TRACE)
[2020-03-28 05:56] LABS: Appearance Urine CLEAR; Color Urine YELLOW
[2020-03-28] MEDS: vancomycin HCL 1,000 MG in 0.9 % Sodium Chloride 250 ML 270 MG IV (06:01)
[2020-03-28 06:12] LABS: Squamous Epithelial Cell Urine TRACE /LPF; WBC Urine 0-2 /HPF (0-4)
[2020-03-28 07:01] LABS: C Reactive Protein 6.94 mg/dL (< or = 0.50)
--- NOTE | 2020-03-28 11:13 | PC.NURSE ---
Dr Hardwick at bedside for evaluation. Wound undressed to right foot and redressed with moist to dry dressing per Dr Hardwick. Pt assisted into bedside recliner for comfort. Reports chronic mid back pain, Dr Hardwick aware. Photo taken and this RN to place photo in chart.
[2020-03-28] MEDS: Piperacillin Sodium/Tazobactam 3.375 GM in 0.9 % Sodium Chloride 50 ML IV ×2 (12:20→18:10)
[2020-03-28] MEDS: guaiFENesin LA 600 MG TAB.ER.12H PO (12:24)
[2020-03-28] MEDS: Enoxaparin Sodium 40 MG/0.4 ML SYRINGE SUBCUT (12:25)
[2020-03-28] MEDS: oxyCODONE HCl Immed Release 5 MG TABLET PO (12:30)
--- NOTE | 2020-03-28 12:42 | HP_ITS ---
DATE OF SERVICE: 03/28/2020 SURGEON: Roberto Londono MD. ONCOLOGIST: Dr. Mann. ORACLE SCM CONSULTANT: From [facility]. HISTORY OF PRESENTING ILLNESS: This is a 59-year-old gentleman with poorly differentiated adenocarcinoma of lung, stage IV metastatic disease, currently receiving palliative chemotherapy under care of Dr. Mann as well as history of coronary artery disease, being medically managed, presented to [facility] due to chest discomfort that started yesterday. The patient took 800 mg of Motrin without any relief in symptoms since he also had associated shortness of breath and sore throat. He called EMS and received 324 mg of aspirin. His chest pain completely resolved. The patient denied any associated symptoms of nausea, diaphoresis, dizziness, lightheadedness, syncope. The patient's workup in the ER showed an EKG with no significant ischemic changes. Troponin was within normal range of 9. Repeat troponin remains at 8. The patient's electrolytes shows low sodium of 133, stable renal function. C-reactive protein of 6.94 and a WBC of 23,000, hematocrit 33, platelets of 430. No bandemia. Imaging studies revealed no PE on a CTA chest, however, it showed patchy ground-glass opacities within the lower lobes with reticular consolidation and atelectasis. Given the presence of filling defects within the lower lobe bronchi, aspiration was considered, viral pneumonia was also in differential. There was no significant change in the pulmonary lesions and mediastinal adenopathy as compared to the prior. The patient also had a CT abdomen and pelvis that showed dense calcification within the pancreatic head, mild bilateral perinephric fat stranding of uncertain etiology that was present in prior studies. The patient was noticed to have mild hypoxia. Admission was called in due to acute hypoxic respiratory failure likely related to pneumonia, question aspiration versus postobstructive pneumonia. The patient's COVID PCR came back negative as well as influenza and RSV. PAST MEDICAL HISTORY: Significant for: 1. History of metastatic lung cancer stage IV, history of osteomyelitis of right foot toe, status post transmetatarsal amputation. 2. History of coronary artery disease. 3. History of COPD. 4. History of type 2 diabetes mellitus. 5. History of GERD. 6. History of hyperlipidemia. 7. History of hypertension. 8. History of obstructive sleep apnea. 9. History of peripheral vascular disease. 10. History of chronic bronchitis. PAST SURGICAL HISTORY: 1. Status post angioplasty. 2. Status post bronchoscopy. 3. Status post cholecystectomy. 4. Status post hernia repair. 5. Status post tonsillectomy. FAMILY HISTORY: 1. The patient's father is , had lung cancer. 2. Mother has history of hypertension. Maternal uncle has history of colon cancer and there is a family history of Alzheimer disease. SOCIAL HISTORY: The patient lives with his and his mother. He is an every day smoker. He is a former alcoholic. REVIEW OF SYSTEMS: HVAC MAINTENANCE TECHNICIAN: The patient denies any headache, lightheadedness, or dizziness. CVS: His chest pain has resolved with no recurrence while in the ER. GASTROINTESTINAL: The patient denies any nausea, vomiting, abdominal pain, or diarrhea. : No urinary symptoms of urgency or frequency. MUSCULOSKELETAL: He has chronic back pain. CONSTITUTIONAL: The patient does complain of chronic fever and feeling hot. Rest of all other systems are reviewed and negative. PHYSICAL EXAMINATION: GENERAL: The patient is sitting in bed, in no acute distress. HEENT: Pupils are equal, round, and reactive to light and accommodation. NECK: Supple. No increased JVD. LUNGS: Clear to auscultation bilaterally with no wheeze, rhonchi, or crackles. HEART: Regular rate and rhythm. No murmur, regurg, or gallop appreciated. ABDOMEN: Soft, nontender. Bowel sounds are audible. EXTREMITIES: Right foot transmetatarsal amputation incision is not healed open wound on the medial half with small amount of whitish yellow eschar. There is also a wound on the lateral margin of the foot with clean base, no drainage. Left lower extremity, no edema. LABORATORY DATA: Showed a WBC 23,000, hematocrit 33, platelets of 430. Urinalysis is unremarkable. Sodium 133, potassium 3.9, BUN 8, creatinine of 0.72, blood glucose of 151, calcium of 8, alkaline phosphatase 219. C-reactive protein 6.94. Troponin is flat. Two sets of blood cultures are pending. Imaging studies as per HPI. ASSESSMENT AND PLAN: This is a 59-year-old gentleman with multiple medical problems including history of coronary artery disease, currently medically managed as well as history of hypertension, hyperlipidemia, poorly differentiated adenocarcinoma of the lung, receiving palliative chemotherapy by Dr. Mann, presented to [facility] with acute onset of chest pain that started just prior to presentation and resolved with 1 tablet of aspirin with no recurrence in the emergency room. The patient noted to be hypoxic. CTA is concerning for possible pneumonia, therefore being admitted to [facility] with hypoxic respiratory failure and pneumonia. 1. Chest pain. The patient has known coronary artery disease, currently no evidence of acute ischemia with stable troponin and EKG. Therefore, the patient will be continued on baseline home medications including aspirin, statin, Plavix, isosorbide. The patient is not on beta blockers, question related to underlying chronic obstructive pulmonary disease. We will refer the patient to his outpatient manager chemistry upon discharge. 2. Acute respiratory failure with hypoxemia, likely related to possible postobstructive pneumonia or mucus plugging. The patient treated in the ER with 1 dose of vancomycin, that will be discontinued. The patient will be placed on IV Zosyn 3.375 mg q.6 hours is scheduled. We will place the patient on Mucinex, incentive spirometry. 3. Chronic obstructive pulmonary disease with no acute exacerbation. The patient will be continued on home medications including Spiriva, albuterol. 4. History of hyperlipidemia. Continue statin. 5. Stage IV metastatic lung cancer. The patient is on dexamethasone, that will be continued. The patient missed his chemotherapy dose last week and has been scheduled to have chemotherapy next Monday. He will be referred to Dr. Mann upon discharge. 6. Deep vein thrombosis prophylaxis. The patient will be treated with Lovenox. 7. Code status: The patient wishes to be a full code. MD EDITH Hicks/GEORGINA / [id number] MTDD
[2020-03-28] MEDS: Aspirin Enteric Coated 81 MG TABLET.DR PO (12:44)
[2020-03-28] MEDS: Gabapentin 600 MG TABLET PO ×2 (12:44→20:34)
[2020-03-28] MEDS: Omeprazole 20 MG CAPSULE.DR PO ×2 (12:45→20:35)
[2020-03-28] MEDS: Ferrous Sulfate 324 MG TABLET.DR PO ×2 (12:45→20:35)
[2020-03-28] MEDS: Famotidine 20 MG TABLET PO (12:45)
[2020-03-28] MEDS: Folic Acid 1 MG TABLET PO (12:45)
[2020-03-28] MEDS: Gabapentin 300 MG CAPSULE PO ×2 (12:45→20:34)
[2020-03-28] MEDS: Multivitamin TABLET 1 TAB PO (12:45)
[2020-03-28] MEDS: Clopidogrel Bisulfate 75 MG TABLET PO (12:45)
[2020-03-28] MEDS: Tamsulosin HCL 0.4 MG CAPSULE PO (12:45)
--- NOTE | 2020-03-28 13:03 | PC.NURSE ---
Pt agitated, stating i should just leave Pt made aware that leaving is not recommended but pt is able to leave if he wishes to. Upset about receiving AM meds, meds given unscheduled d/t pt not receiving meds this morning (all meds available in ED) pharmacy called for meds n/a
[2020-03-28] MEDS: Isosorbide Mononitrate 60 MG TAB.ER.24H PO (13:16)
[2020-03-28] MEDS: Venlafaxine HCl ER 37.5 MG CAP.ER.24H PO (13:17)
--- NOTE | 2020-03-28 14:31 | PC.NURSE ---
Pt states pain level has decreased significantly to now 03/22. Pt continues to ask to go outside to smoke despite multiple attempts to explain why pt is not able to. Nicotine patch order obtained.
[2020-03-28] MEDS: Nicotine 21 MG PATCH.TD24 TRANSDERMA (15:09)
--- NOTE | 2020-03-28 20:12 | PM.EVENT ---
Event Note Date of Service: 03/28/20 Event Note: Called by nursing staff as patient stated he wanted to be discharged home from the ED. Chart reviewed and patient was seen and interviewed. He was admitted with chest pain earlier and was found to have infiltrate on CXR suggestive of pneumonia vs aspiration and was treated with antibiotics as his oxygen sats were in the low 90's. Currently his chest pain resolved and he is at baseline with his breathing-has some chronic cough and dyspnea due to smoking and lung cancer and states his oxygen sats are usually 90-93%. He is afebrile and oxygen sats have been in low 90's. He is alert an interactive and oriented and understands the reasons why he was hospitalized and the risk of leaving. As such he can be discharged against medical advice. He stated he lives nearby and can return if his breathing worsens. Will prescribe a course of Augmentin given possible aspiration and will complete 7 days of antibiotics total.
--- NOTE | 2020-03-28 20:27 | P.DS_ITS ---
DS: Providers Provider Date of Service: 03/28/20 Date of admission: 03/28/20 11:16 Primary care physician: Unknown Physician Consults: 03/28/20 11:16 Consult to General Surgery Routine Consulting Provider: Roberto Londono Reason for consultation: Status post transmetatarsal amputation with open wound Has provider been notified: No DS: Diagnosis Discharge Diagnosis (1) Acute respiratory failure with hypoxemia: Status: Acute (2) Pneumonia: Status: Acute (3) Osteomyelitis of fifth toe of right foot: Status: Acute (4) Non-small cell lung cancer with metastasis: Status: Chronic (5) Tobacco consumption: Status: Acute (6) PAD (peripheral artery disease): Status: Acute (7) Osteomyelitis of third toe of right foot: Status: Acute (8) Osteomyelitis of fourth toe of right foot: Status: Acute (9) CAD (coronary artery disease): Status: Inactive Problem details: Dr. Jerry Tamayo ([place] [phone]), pt refuses cath (10) COPD (chronic obstructive pulmonary disease): Status: Inactive DS: Medications Discharge Medications Home Medications: Home Medications Medication Instructions Recorded Confirmed aspirin 81 mg tablet,delayed 81 mg PO DAILY 12/18/19 03/28/20 release atorvastatin 40 mg tablet 40 mg PO BEDTIME 12/18/19 03/28/20 clopidogrel 75 mg tablet 75 mg PO DAILY 12/18/19 03/28/20 famotidine 20 mg tablet 20 mg PO DAILY 12/18/19 03/28/20 folic acid 1 mg tablet 1 mg PO DAILY 12/18/19 03/28/20 isosorbide mononitrate 60 mg 60 mg PO DAILY 12/18/19 03/28/20 tablet,extended release 24 hr loratadine 10 mg capsule 10 mg PO DAILY 12/18/19 03/28/20 magnesium gluconate 27 mg 27 mg PO DAILY tab 12/18/19 03/28/20 magnesium (500 mg) tablet omega-3 fatty acids 1,000 mg 1,000 mg PO BID 12/18/19 03/28/20 capsule quetiapine 50 mg tablet 50 mg PO BID 12/18/19 03/05/20 tamsulosin 0.4 mg capsule 0.4 mg PO DAILY 12/18/19 03/28/20 thiamine HCl (vitamin B1) 100 mg 100 mg PO DAILY 12/18/19 03/28/20 tablet venlafaxine 37.5 mg 37.5 mg PO DAILY 12/18/19 03/28/20 capsule,extended release 24 hr vitamin B complex 1 tab PO DAILY 12/18/19 03/28/20 dexamethasone 4 mg PO BID 01/06/20 03/28/20 Spiriva with HandiHaler 1 cap INHALATION DAILY 01/08/20 03/28/20 albuterol sulfate [ProAir HFA] 1 inh INHALATION QID PRN 01/08/20 03/28/20 ferrous sulfate 325 mg PO BID 01/08/20 03/28/20 gabapentin 300 mg PO TID 01/08/20 03/28/20 gabapentin 600 mg PO TID 01/08/20 03/28/20 multivitamin 1 tab PO DAILY 01/08/20 03/28/20 omeprazole 20 mg PO BID 01/08/20 03/28/20 ondansetron HCl [Zofran] 8 mg PO Q8H PRN 01/08/20 03/28/20 fluticasone propionate 1 puff INHALATION BID 02/17/20 03/28/20 Previous Rx's Medication Instructions Recorded oxycodone 5 mg PO Q6H PRN #14 tab 12/26/19 DS: Summary Time Spent with Patient Time attestation: Total time spent providing and/or coordinating discharge services: 35 minutes. 59 year old man with history of CAD, COPD, activve smoking, and lung cancer presented with chest discomfort. Was observed in ED and was noted to have no elevation in his Troponin. CTA of the chest showed no PE but did suggest bibasilar ground glass opacities in the lower lobes with filling defects in the bronchi suggestive of an aspiration so the patient was admitted and treated for hypoxia and pneumonia, likely due to aspiration. COVID testing was negative. He was in the ED for approx 24 hrs on IV antibiotics and opted to be discharged home against medical advice. Separate note documented that interaction and that the patient had capacity to make that decision. He will complete a course of Augmentin and will have finished 7 days of antibiotics total as an outpatient. He was instructed to return to the ED if he develops shortness of breath or if he feels worse. Discharge coordination time: Greater than 30 minutes Physical Exam Vital Signs: Vital Signs: Last Vital Signs Temp 97.4 F 03/28/20 14:27 Pulse 95 03/28/20 14:27 Resp 18 03/28/20 14:27 BP 150/78 H 03/28/20 14:27 Pulse Ox 91 L 03/28/20 14:27 Body Mass Index 25.2 Resp: Other: Air entry bilaterally, normal chest expansion, diminished breath sounds at both bases R>L. Effort & Inspection: normal respiratory effort DS: Data Data Completed and Pending Labs on day of discharge: Laboratory Tests 03/27/20 03/27/20 03/27/20 22:35 22:35 22:35 WBC 23.0 H RBC 3.58 L Hgb 10.9 L Hct 33.3 L MCV 93.0 MCH 30.4 MCHC 32.7 RDW 15.2 Plt Count 430 H D MPV 8.6 L Immature Gran % (Auto) 0.6 H Neut % (Auto) 84.6 H Lymph % (Auto) 4.4 L [place] % (Auto) 10.0 Eos % (Auto) 0.2 Baso % (Auto) 0.2 Lymph # (Auto) 1.0 L [place] # (Auto) 2.3 H Eos # (Auto) 0.0 Baso # (Auto) 0.1 Abs Immat Gran (auto) 0.13 H Absolute Neuts (auto) 19.5 H Absolute Nucleated RBC 0.000 Nucleated RBC % (auto) 0.0 Smear Tech's Comments VERIFIED PT INR APTT D-Dimer Sodium 133 L Potassium 3.9 Chloride 99 Carbon Dioxide 23 Anion Gap 15 BUN 8 L Creatinine 0.72 Estim Creat Clear Calc 112.6 Estimated GFR > 60 Random Glucose 151 H Lactic Acid Calcium 8.0 L Total Bilirubin 0.5 AST 15 ALT 12 Alkaline Phosphatase 219 H Troponin I High Sens 9.0 C-Reactive Protein 6.94 H Total Protein 6.5 Albumin 3.9 Urine Color Urine Appearance Urine pH Ur Specific [place] Urine Protein Urine Glucose (UA) Urine Ketones Urine Blood Urine Nitrite Ur Leukocyte Esterase Urine RBC Urine WBC Ur Squamous Epith Cells Urine Bacteria Coronavirus (PCR) Influenza Type A (PCR) Influenza Type B (PCR) RSV RNA Qual (PCR) 03/27/20 03/27/20 03/27/20 23:44 23:44 23:44 WBC RBC Hgb Hct MCV MCH MCHC RDW Plt Count MPV Immature Gran % (Auto) Neut % (Auto) Lymph % (Auto) [place] % (Auto) Eos % (Auto) Baso % (Auto) Lymph # (Auto) [place] # (Auto) Eos # (Auto) Baso # (Auto) Abs Immat Gran (auto) Absolute Neuts (auto) Absolute Nucleated RBC Nucleated RBC % (auto) Smear Tech's Comments PT 14.6 H INR 1.2 H APTT 51.3 H D-Dimer 386 Sodium Potassium Chloride Carbon Dioxide Anion Gap BUN Creatinine Estim Creat Clear Calc Estimated GFR Random Glucose Lactic Acid 0.7 Calcium Total Bilirubin AST ALT Alkaline Phosphatase Troponin I High Sens C-Reactive Protein Total Protein Albumin Urine Color Urine Appearance Urine pH Ur Specific [place] Urine Protein Urine Glucose (UA) Urine Ketones Urine Blood Urine Nitrite Ur Leukocyte Esterase Urine RBC Urine WBC Ur Squamous Epith Cells Urine Bacteria Coronavirus (PCR) NEGATIVE Influenza Type A (PCR) NEGATIVE Influenza Type B (PCR) NEGATIVE RSV RNA Qual (PCR) NEGATIVE 03/28/20 03/28/20 01:12 05:40 WBC RBC Hgb Hct MCV MCH MCHC RDW Plt Count MPV Immature Gran % (Auto) Neut % (Auto) Lymph % (Auto) [place] % (Auto) Eos % (Auto) Baso % (Auto) Lymph # (Auto) [place] # (Auto) Eos # (Auto) Baso # (Auto) Abs Immat Gran (auto) Absolute Neuts (auto) Absolute Nucleated RBC Nucleated RBC % (auto) Smear Tech's Comments PT INR APTT D-Dimer Sodium Potassium Chloride Carbon Dioxide Anion Gap BUN Creatinine Estim Creat Clear Calc Estimated GFR Random Glucose Lactic Acid Calcium Total Bilirubin AST ALT Alkaline Phosphatase Troponin I High Sens 8.1 C-Reactive Protein Total Protein Albumin Urine Color YELLOW Urine Appearance CLEAR Urine pH 6.0 Ur Specific [place] <= 1.005 Urine Protein NEG Urine Glucose (UA) NEG Urine Ketones NEG Urine Blood TRACE Urine Nitrite NEG Ur Leukocyte Esterase NEG Urine RBC 1-4 Urine WBC 0-2 Ur Squamous Epith Cells TRACE Urine Bacteria NONE Coronavirus (PCR) Influenza Type A (PCR) Influenza Type B (PCR) RSV RNA Qual (PCR) Discharge Plan Discharge Anticipated Discharge Date/Time: 03/28/20 20:16 Patient Disposition: Left Against Medical Advice Referrals: Physician,Unknown [Primary Care Provider] - Discharge Medications: New amoxicillin-pot clavulanate [Augmentin] 875-125 mg tablet 1 tab PO BID Qty: 10 RF: 0 Continued dexamethasone 4 mg Tablet 4 mg PO BID RF: 0 ferrous sulfate 325 mg (65 mg iron) Tablet 325 mg PO BID RF: 0 multivitamin Tablet 1 tab PO DAILY RF: 0 gabapentin 600 mg Tablet 600 mg PO TID RF: 0 albuterol sulfate [ProAir HFA] 90 mcg/actuation Hfa Aerosol Inhaler 1 inh INHALATION QID PRN (Reason: Shortness Of Breath Or Wheezing) RF: 0 Spiriva with HandiHaler 18 mcg Capsule, W/Inhalation Device 1 cap INHALATION DAILY RF: 0 gabapentin 300 mg Tablet 300 mg PO TID RF: 0 omeprazole 20 mg Tablet,Delayed Release (Dr/Ec) 20 mg PO BID RF: 0 ondansetron HCl [Zofran] 4 mg tablet 8 mg PO Q8H PRN (Reason: Nausea) RF: 0 oxycodone 5 mg tablet 5 mg PO Q6H PRN (Reason: Foot pain) Qty: 14 RF: 0 fluticasone propionate 110 mcg/actuation Hfa Aerosol Inhaler 1 puff INHALATION BID RF: 0 aspirin [Adult Low Dose Aspirin] 81 mg tablet,delayed release (DR/EC) 81 mg PO DAILY RF: 0 loratadine 10 mg capsule 10 mg PO DAILY RF: 0 folic acid 1 mg tablet 1 mg PO DAILY RF: 0 omega-3 fatty acids [Fish Oil Concentrate] 1,000 mg capsule 1,000 mg PO BID RF: 0 vitamin B complex [B Complex-Vitamin B12] Tablet 1 tab PO DAILY RF: 0 thiamine HCl (vitamin B1) 100 mg tablet 100 mg PO DAILY RF: 0 venlafaxine 37.5 mg capsule,extended release 24hr 37.5 mg PO DAILY RF: 0 tamsulosin 0.4 mg capsule 0.4 mg PO DAILY RF: 0 quetiapine 50 mg tablet 50 mg PO BID RF: 0 magnesium gluconate [Mag-G] 27 mg magnesium (500 mg) tablet 27 mg PO DAILY RF: 0 isosorbide mononitrate 60 mg tablet extended release 24 hr 60 mg PO DAILY RF: 0 famotidine 20 mg tablet 20 mg PO DAILY RF: 0 clopidogrel 75 mg tablet 75 mg PO DAILY RF: 0 atorvastatin 40 mg tablet 40 mg PO BEDTIME RF: 0 Discharge Orders: Discharge Order (Routine); Ordered 03/28/20 Ordered By: Kenrick Sittig I Diet: advance to usual diet Activity on Discharge: As tolerated Care Plan Goals: please continue your antibiotics for 5 more days. return to the ER if you have worsening shortness of breath or fever or chest pain. Health Concerns: Pneumonia, COPD, lung cancer Plan of Treatment: You had 2 days of antibiotics while in the ED-continue oral Augment for 5 more days after discharge.
[2020-03-28] MEDS: dexAMETHasone 4 MG TABLET PO (20:35)
[2020-03-28] MEDS: Atorvastatin Calcium 40 MG TABLET PO (20:35)
== END 2020-03-28 21:50 | disposition left against medical advice (07) ==
LOC: HO.ED 03-28 10:03 → HO.EDOVER 03-28 20:23
PROVIDERS: Emergency Provider Student in an Organized Health Care Education/Training Program
DX: J96.01 Acute respiratory failure with hypoxia (principal); J18.9 Pneumonia, unspecified organism; Z20.822 Contact with and (suspected) exposure to COVID-19; E11.9 Type 2 diabetes mellitus without complications; C34.90 Malignant neoplasm of unspecified part of unspecified bronchus or lung; I73.9 Peripheral vascular disease, unspecified; J44.9 Chronic obstructive pulmonary disease, unspecified; F17.210 Nicotine dependence, cigarettes, uncomplicated; Z79.899 Other long term (current) drug therapy; Z79.82 Long term (current) use of aspirin
CPT/HCPCS: 0241U; 36415; 71045; 71275; 74177; 80053; 81001; 83605; 84484; 85025; 85379; 85610; 85730; 86140; 87040; 93005; 96365; 96366; 99285; J1650; J2543; J3370; J8540; Q9967

== ENCOUNTER → 2020-04-01 12:57 | Outpatient (BNVA) | payer MEDICAID, SELFPAY | PROVIDERS: PCP Family Medicine; Visit Provider Surgery | DX: M86.9 Osteomyelitis, unspecified (principal) | CPT/HCPCS: 99212 ==

== ENCOUNTER 2020-04-03 10:30 | Outpatient (RCR) | payer MEDICAID, SELFPAY ==
[2019-12-16 11:52] VITALS: BP 113/85; PULSE 105; RESP 18; TEMP 36.8; O2SAT 97; BMI 24.5
[2019-12-16 14:02] LABS: MANUAL DIFF FLAG NO
[2019-12-16 14:16] LABS: Basophils Percent Auto 0.1 % (0-2); Eosinophils Absolute Auto 0.2 X10*3/uL (0.0-0.4); Eosinophils Percent Auto 1.1 % (0-4); Hematocrit 31.5 % (42-52); Hemoglobin 10.2 g/dl (14.0-18.0); Imm Gran Abs Auto 0.09 X10*3/uL (0.00-0.03); Imm Gran Pct Auto 0.6 % (0.0-0.4); Lymphocytes Absolute Auto 2.2 X10*3/uL (1.2-4.9); Lymphocytes Percent Auto 13.4 % (20-40); Mean Corpuscular HGB Conc 32.4 g/dl (31.0-36.0); Mean Corpuscular Hemoglobin 31.6 pg (27.0-33.0); Mean Corpuscular Volume 97.5 fL (80-98); Mean Platelet Volume 8.6 fL (9.4-12.4); Monocytes Absolute Auto 1.4 X10*3/uL (0.1-1.2); Monocytes Percent Auto 8.5 % (2-11); Neutrophils Absolute Auto 12.3 X10*3/uL (2.0-8.3); Neutrophils Percent Auto 76.3 % (45-73); Platelet Count 422 X10*3/uL (160-400); Red Blood Count 3.23 X10*6/uL (4.60-5.80); Red Cell Distribution Width 15.4 % (11.0-16.0); White Blood Count 16.1 X10*3/uL (4.8-10.8)
[2019-12-16 14:47] LABS: Alanine Aminotransferase 17 U/L (0-40); Albumin Level 3.8 g/dL (3.5-5.0); Alkaline Phosphatase 238 U/L (39-117); Anion Gap 10 (12-20); Aspartate Amino Transferase 18 U/L (5-37); Bilirubin Total 0.3 mg/dL (0.0-1.0); Blood Urea Nitrogen 6 mg/dL (9-16); Calcium 8.8 mg/dL (8.4-10.2); Carbon Dioxide 29 mmol/L (22-29); Chloride 102 mmol/L (96-108); Creatinine Clr Calc Pharmacy 114.2; Estimated Glomerular Filt Rate > 60; Glucose Random 111 mg/dL (60-115); Potassium 4.1 mmol/l (3.3-5.1); Sodium 137 mmol/L (135-145); Total Protein 6.4 g/dL (6.5-8.0)
--- NOTE | 2019-12-16 16:37 | MHC.HEMONC ---
pt here for chemo. Labs drawn but he indicated that his foot s/p amputated toes was looking infected since Monday. Labs reviewed. WBC is up to 16. No fever. Dr Mann saw it and ordered to delay chemo for one week. Dr Narvaez called and will see him Monday at 11:45. Pt is aware.
--- NOTE | 2019-12-17 09:19 | MHC.HEMONCSW ---
PT TREATMENT POSTPONED YESTERDAY DUE TO POSSIBLE TOE(AMPUTATION) INFECTION. VERBALIZES FRUSTRATION WITH ILLNESSES, APPOINTMENTS ETC. ALLOWED HIM TO DISCUSS FEELINGS AND HE PLANS ON FOLLOWING UP WITH DR. QUINTERO. HE IS AWARE OF MY AVAILABILITY. DECLINES A COUNSELING REFERRAL.
[2019-12-30 12:56] LABS: MANUAL DIFF FLAG NO
[2019-12-30 13:03] LABS: Basophils Absolute Auto 0.1 X10*3/uL (0.0-0.2); Basophils Percent Auto 0.6 % (0-2); Eosinophils Absolute Auto 0.3 X10*3/uL (0.0-0.4); Eosinophils Percent Auto 2.6 % (0-4); Hematocrit 31.4 % (42-52); Hemoglobin 9.8 g/dl (14.0-18.0); Imm Gran Abs Auto 0.06 X10*3/uL (0.00-0.03); Imm Gran Pct Auto 0.5 % (0.0-0.4); Lymphocytes Absolute Auto 1.6 X10*3/uL (1.2-4.9); Lymphocytes Percent Auto 13.1 % (20-40); Mean Corpuscular HGB Conc 31.2 g/dl (31.0-36.0); Mean Corpuscular Hemoglobin 30.7 pg (27.0-33.0); Mean Corpuscular Volume 98.4 fL (80-98); Monocytes Absolute Auto 0.9 X10*3/uL (0.1-1.2); Monocytes Percent Auto 7.6 % (2-11); Neutrophils Absolute Auto 9.2 X10*3/uL (2.0-8.3); Neutrophils Percent Auto 75.6 % (45-73); Platelet Count 274 X10*3/uL (160-400); Red Blood Count 3.19 X10*6/uL (4.60-5.80); Red Cell Distribution Width 17.4 % (11.0-16.0); White Blood Count 12.2 X10*3/uL (4.8-10.8)
--- NOTE | 2019-12-30 13:29 | MHC.HEMONCSW ---
ct abd/pelvis with c went to [facility] [place] [facility] clinical review. case# [id number]. wait decision.
[2019-12-30 13:45] LABS: Alanine Aminotransferase 70 U/L (0-40); Albumin Level 3.3 g/dL (3.5-5.0); Alkaline Phosphatase 1004 U/L (39-117); Anion Gap 11 (12-20); Aspartate Amino Transferase 30 U/L (5-37); Bilirubin Total 0.6 mg/dL (0.0-1.0); Blood Urea Nitrogen 6 mg/dL (9-16); Calcium 8.5 mg/dL (8.4-10.2); Carbon Dioxide 27 mmol/L (22-29); Chloride 105 mmol/L (96-108); Creatinine Clr Calc Pharmacy 126.7; Estimated Glomerular Filt Rate > 60; Glucose Random 148 mg/dL (60-115); Sodium 139 mmol/L (135-145); Total Protein 6.1 g/dL (6.5-8.0)
--- NOTE | 2019-12-30 15:03 | MHC.HEMONC ---
labs obtained, Sania working on obtaining PA for CT ABD/Pelvis and booking appointment.
--- NOTE | 2020-01-02 11:32 | MHC.HEMONCSW ---
[facility] APPROVED CT ABD/PELVIS WITH CONTRAST. DATE RANGE: 01/01/20 TO 06/30/19.
[2020-01-06 09:00] VITALS: BP 131/76; PULSE 107; RESP 20; TEMP 36.4; O2SAT 95
[2020-01-06 09:01] VITALS: BMI 24.3
--- NOTE | 2020-01-06 09:34 | P.PNHO_ITS ---
Medical Summary - Medical Summary Chief complaint: Follow-up and scheduled treatment Medical Summary: Diagnosis: Metastatic lung cancer May CT chest demonstrated small lobular right upper lobe pulmonary nodule, wedge resection for diagnostic purposes discussed by Dr. Marina. However this was canceled due to peripheral vascular disease and other medical issues. Repeat CT chest on 05/16/2019 demonstrated nodules in the right upper lobe which increased in size and spiculated in nature. Additional nodule in the right upper lobe as well as left lower lobe. PET-CT performed at [facility] on 06/14/2019 revealed abnormal FDG uptake in medial right lung nodule, SUV 5.6 concerning for malignancy. Large posterior right upper lobe pulmonary nodule SUV 6.9, small left upper lobe suprahilar/subpleural nodule SUV 4 concerning for malignancy. FDG uptake in posterior medial left lower lobe pulmonary nodule SUV 5.4 concerning for malignancy. Abnormal FDG uptake within lymph nodes including small right supraclavicular lymph node SUV 4.7, right paratracheal lymph nodes, subcarinal lymph node and right hilar lymph nodes. Abnormal FDG uptake within right superior acetabulum involving right superior ramus SUV 7.8 concerning for osseous metastatic disease. Patient refused biopsy of bone lesion in hip, he was scheduled for CT of the hip before XRT but did not go for it. He received palliative radiation therapy at [facility]. Brain MRI with and without contrast performed May 2019 was negative for metastatic disease. He started palliative chemotherapy with carboplatin, pemetrexed and pembrolizumab on 07/17/2019. Interval History Interval history: Patient is here for treatment and follow-up. Last week he had a few episodes of nausea and emesis. No isela blood but he says it was rather dark. He is on Prilosec once a day. Abdominal pain has now resolved. He had debridement of right foot ulcer, osteomyelitis. He is not on any antibiotics at this time. He denies fever or chills. He cut his left forearm while trying to fix an antenna in his home over the weekend. He has had slight oozing of blood on and off. He denies fever, chills, cough, shortness of breath or leg swelling. No diarrhea or constipation at this time. Review of Systems - Constitutional Reports as per HPI, Reports no additional constitutional complaints - Respiratory Reports no additional respiratory complaints - Gastrointestinal Reports no additional gastrointestinal complaints, Denies black, tarry stools, D enies bright, red blood in stools [facility] Medical History: Medical History (Last Reviewed 12/26/19 @ 08:57 by Regi Schuster) Bronchitis, chronic CAD (coronary artery disease) COPD (chronic obstructive pulmonary disease) Depression Diabetes type 2 with atherosclerosis of arteries of extremities GERD (gastroesophageal reflux disease) Hyperlipidemia Hypertension Lung cancer SHANIQUA (obstructive sleep apnea) Osteomyelitis of fourth toe of right foot PVD (peripheral vascular disease) Family History: Family History (Last Reviewed 12/26/19 @ 08:57 by Regi Schuster) Father History of lung cancer Mother History of hypertension Family history of Alzheimer's disease Maternal Uncle History of colon cancer Surgical History: Surgical History (Last Reviewed 12/18/19 @ 12:22 by Roberto Londono MD) History of angioplasty History of bronchoscopy History of cholecystectomy History of hernia repair History of removal of cyst History of tonsillectomy Oncology Screenings - ECOG Performance Status ECOG Performance Status: 1 Home Medications and Allergies Current Medications: Current Medications Generic Name Dose Route Start Last Admin Trade Name Freq PRN Reason Stop Dose Admin Diphenhydramine HCl 25 mg 01/06/20 00:00 Diphenhydramine Hcl 25 Mg Tablet PO 01/06/20 23:59 ONCE MOLLY Famotidine 20 mg 01/06/20 00:00 Famotidine/Pf 20 Mg/2 Ml Vial IVPUSH 01/06/20 23:59 ONCE [facility] Heparin Sodium (Porcine) 500 unit 01/06/20 00:00 Heparin Sodium,Porcine Flush 500 Unit/5 Ml Syringe IVFLUSH 01/06/20 23:59 ONCE [facility] Sodium Chloride 500 mls @ 500 mls/hr 01/06/20 00:00 Ns IVCONT 01/06/20 23:59 .Q1H MOLLY Dexamethasone Sodium Phosphate 12 mg in 50 mls @ 100 mls/hr 01/06/20 00:00 Decadron IV 01/06/20 23:59 ONCE MOLLY Ondansetron HCl 16 mg in 50 mls @ 200 mls/hr 01/06/20 00:00 Zofran IV 01/06/20 23:59 ONCE [facility] Home Medications Medication Instructions Recorded Confirmed Type aspirin 81 mg tablet,delayed 81 mg PO DAILY 12/18/19 01/06/20 History release atorvastatin 40 mg tablet 40 mg PO DAILY 12/18/19 01/06/20 History clopidogrel 75 mg tablet 75 mg PO DAILY 12/18/19 01/06/20 History famotidine 20 mg tablet 20 mg PO DAILY 12/18/19 01/06/20 History folic acid 1 mg tablet 1 mg PO DAILY 12/18/19 01/06/20 History isosorbide mononitrate 60 mg 60 mg PO DAILY 12/18/19 01/06/20 History tablet,extended release 24 hr loratadine 10 mg capsule 10 mg PO DAILY 12/18/19 01/06/20 History magnesium gluconate 27 mg 27 mg PO DAILY tab 12/18/19 01/06/20 History magnesium (500 mg) tablet omega-3 fatty acids 1,000 mg 1,000 mg PO BID 12/18/19 01/06/20 History capsule quetiapine 50 mg tablet 50 mg PO BEDTIME 12/18/19 01/06/20 History tamsulosin 0.4 mg capsule 0.4 mg PO DAILY 12/18/19 01/06/20 History thiamine HCl (vitamin B1) 100 mg 100 mg PO DAILY 12/18/19 01/06/20 History tablet venlafaxine 37.5 mg 37.5 mg PO DAILY 12/18/19 01/06/20 History capsule,extended release 24 hr vitamin B complex 1 tab PO DAILY 12/18/19 01/06/20 History Flovent BID 12/26/19 History Allergies Allergy/AdvReac Type Severity Reaction Status Date / Time lisinopril [LISINOPRIL] Allergy Intermediate BLEEDING Verified 12/26/19 07:51 IN MOUTH,SWELLING Josh inhibitors Allergy Unknown Unknown Uncoded 12/18/19 11:48 Exam Vital signs: Vital Signs Temp 97.6 F 01/06/20 09:00 Pulse 107 H 01/06/20 09:00 Resp 20 01/06/20 09:00 BP 131/76 01/06/20 09:00 Pulse Ox 95 01/06/20 09:00 Intake & Output 01/05/20 01/06/20 01/06/20 18:59 06:59 18:59 Other: Weight 76.9 kg Weight 76.9 kg Body Mass Index 24.3 - Constitutional Present: no acute distress - Routine HEENT Exam Head: Present: normal inspection Eye: Present: EOMI - Routine Neck Exam Absent: lymphadenopathy - Routine Cardiovascular Exam Cardiovascular: Present: RRR, S1, S2 - Routine Abdominal Exam Present: normal bowel sounds, soft - Routine Extremities Exam Absent: pedal edema Data - Labs CBC & Chem 7: 01/06/20 09:37 12/30/19 12:47 Progress Note: A/P (1) Non-small cell lung cancer with metastasis Status: Acute Assessment and plan: 1. This is a 59-year-old male, chronic smoker who has been diagnosed with metastatic lung cancer. On 06/27/2019 he underwent bronchoscopy and biopsy which revealed poorly differentiated adenocarcinoma, negative for EGFR, BRAF mutation, ALK rearrangement. PD L1 positive, TPS 25%, panTRK negative. He started palliative chemotherapy with carboplatin, pemetrexed and pembrolizumab on 07/17/2019. He is on folic acid supplementation and vitamin B12 supplementation. He is on denosumab for bone Mets. PET scan performed 12/03/2019 revealed abnormal FDG activity in the right lung apical pleura, right infrahilar legion and weak activity in right upper lobe pulmonary nodule. No activity in the abdomen. Week FDG activity associated with a fracture in the right inferior pubic ramus. Overall this is much improved compared to PET scan performed in June at [facility]. Labs look good, proceed with treatment today. 2. Nausea and emesis. I have asked him to increase Prilosec to 40 mg b.i.d.. I have talked to him about referral to GI for an upper endoscopy. 3. Right foot osteomyelitis, status post debridement. This has been a chronic issue, he has been through multiple courses of antibiotics. He has an appointment with the wound clinic tomorrow. Follow-up in 3 weeks. - Time Spent With Patient Total time spent is greater than 50% in coordination of care (as documented) at patient's floor/unit and/or counseling patient: 15 - 24 minutes
[2020-01-06 09:44] LABS: MANUAL DIFF FLAG NO
[2020-01-06 10:01] LABS: Basophils Percent Auto 0.3 % (0-2); Eosinophils Absolute Auto 0.2 X10*3/uL (0.0-0.4); Eosinophils Percent Auto 1.5 % (0-4); Hematocrit 35.6 % (42-52); Hemoglobin 11.1 g/dl (14.0-18.0); Imm Gran Abs Auto 0.08 X10*3/uL (0.00-0.03); Imm Gran Pct Auto 0.6 % (0.0-0.4); Lymphocytes Absolute Auto 1.4 X10*3/uL (1.2-4.9); Lymphocytes Percent Auto 10.4 % (20-40); Mean Corpuscular HGB Conc 31.2 g/dl (31.0-36.0); Mean Corpuscular Hemoglobin 31.2 pg (27.0-33.0); Mean Platelet Volume 8.8 fL (9.4-12.4); Monocytes Absolute Auto 1.1 X10*3/uL (0.1-1.2); Monocytes Percent Auto 8.6 % (2-11); Neutrophils Absolute Auto 10.2 X10*3/uL (2.0-8.3); Neutrophils Percent Auto 78.6 % (45-73); Platelet Count 385 X10*3/uL (160-400); Red Blood Count 3.56 X10*6/uL (4.60-5.80); Red Cell Distribution Width 17.9 % (11.0-16.0)
[2020-01-06 10:28] LABS: Alanine Aminotransferase 25 U/L (0-40); Albumin Level 3.6 g/dL (3.5-5.0); Alkaline Phosphatase 524 U/L (39-117); Anion Gap 13 (12-20); Aspartate Amino Transferase 27 U/L (5-37); Bilirubin Total 0.5 mg/dL (0.0-1.0); Blood Urea Nitrogen 9 mg/dL (9-16); Calcium 8.6 mg/dL (8.4-10.2); Carbon Dioxide 27 mmol/L (22-29); Chloride 101 mmol/L (96-108); Creatinine Clr Calc Pharmacy 112.6; Estimated Glomerular Filt Rate > 60; Glucose Random 172 mg/dL (60-115); Potassium 4.2 mmol/l (3.3-5.1); Sodium 137 mmol/L (135-145); Total Protein 6.6 g/dL (6.5-8.0)
[2020-01-06] MEDS: 0.9 % Sodium Chloride 500 ML IVCONT (10:47)
[2020-01-06] MEDS: ondansetron HCL/NS 16 MG/50 ML PIGGYBACK 200 MG IV (10:48)
[2020-01-06] MEDS: diphenhydrAMINE HCL 25 MG TABLET PO (10:48)
[2020-01-06] MEDS: Famotidine/PF 20 MG/2 ML VIAL IVPUSH (10:48)
[2020-01-06] MEDS: Cyanocobalamin (Vitamin B-12) 1,000 MCG/ML VIAL 1000 MCG IM (10:52)
[2020-01-06] MEDS: dexAMETHasone sod phosphate/NS 12 MG/50 ML PIGGYBACK 200 MG IV (11:29)
[2020-01-27 09:25] VITALS: BMI 26.0
[2020-01-27 09:26] VITALS: BP 145/68; PULSE 97; RESP 20; TEMP 37; O2SAT 96
[2020-01-27 10:33] LABS: Baso%MD 0.2 %; Eos%MD 1.5 %; Hematocrit 34.2 % (42-52); Hemoglobin 10.8 g/dl (14.0-18.0); IG%MD 0.8 %; Mean Corpuscular HGB Conc 31.6 g/dl (31.0-36.0); Mean Corpuscular Hemoglobin 30.7 pg (27.0-33.0); Mean Corpuscular Volume 97.2 fL (80-98); Mean Platelet Volume 8.7 fL (9.4-12.4); Mono%MD 9.4 %; Neut%MD 81.1 %; Platelet Count 420 X10*3/uL (160-400); Red Blood Count 3.52 X10*6/uL (4.60-5.80); Red Cell Distribution Width 16.2 % (11.0-16.0); White Blood Count 12.4 X10*3/uL (4.8-10.8)
[2020-01-27 11:00] LABS: Alanine Aminotransferase 19 U/L (0-40); Albumin Level 3.5 g/dL (3.5-5.0); Alkaline Phosphatase 229 U/L (39-117); Anion Gap 11 (12-20); Aspartate Amino Transferase 17 U/L (5-37); Bilirubin Total 0.3 mg/dL (0.0-1.0); Blood Urea Nitrogen 7 mg/dL (9-16); Calcium 8.3 mg/dL (8.4-10.2); Carbon Dioxide 26 mmol/L (22-29); Chloride 100 mmol/L (96-108); Estimated Glomerular Filt Rate > 60; Glucose Random 178 mg/dL (60-115); Potassium 4.3 mmol/l (3.3-5.1); Sodium 133 mmol/L (135-145); Total Protein 6.2 g/dL (6.5-8.0)
[2020-01-27] MEDS: 0.9 % Sodium Chloride 500 ML 250 ML IVCONT (12:24)
[2020-01-27] MEDS: dexAMETHasone sod phosphate/NS 12 MG/50 ML PIGGYBACK 200 MG IV (12:24)
[2020-01-27] MEDS: diphenhydrAMINE HCL 25 MG TABLET PO (12:24)
[2020-01-27] MEDS: Famotidine/PF 20 MG/2 ML VIAL IVPUSH (12:25)
[2020-01-27 12:47] LABS: Band Neutrophils Percent 2 % (3-5); Basophils Abs Manual 0.2 X10*3/uL (0.0-0.3); Basophils Percent Manual 2 % (0-1); Eosinophils Absolute Manual 0.1 X10*3/UL (0.0-0.8); Eosinophils Percent Manual 1 % (0-4); Lymphocytes Absolute Manual 0.9 X10*3/uL (0.6-4.8); Lymphocytes Percent Manual 7 % (20-40); Monocytes Absolute Manual 0.6 X10*3/uL (0.0-1.2); Monocytes Percent Manual 5 % (2-11); Neutrophils Absolute Manual 10.5 X10*3/uL (2.2-7.9); Neutrophils Percent Manual 83 % (45-73)
[2020-01-27 12:48] LABS: Platelet Estimate INCREASED (NORMAL)
[2020-01-27 12:49] LABS: Platelet Morphology Comment NORM
[2020-01-27 12:50] LABS: RBC Morphology NORMAL
[2020-01-27] MEDS: ondansetron HCL/NS 16 MG/50 ML PIGGYBACK 200 MG IV (13:09)
[2020-01-27] MEDS: Cyanocobalamin (Vitamin B-12) 1,000 MCG/ML VIAL 1000 MCG IM (14:32)
--- NOTE | 2020-02-28 14:42 | MHC.HEMONC ---
Pt called and overslept and missed ride. Chemo r/s to the . Pt aware.
[2020-03-05 11:43] VITALS: BP 148/66; PULSE 101; RESP 18; TEMP 36.5; O2SAT 96; BMI 24.4
[2020-03-05 12:06] LABS: MANUAL DIFF FLAG NO
[2020-03-05 12:08] LABS: Basophils Absolute Auto 0.1 X10*3/uL (0.0-0.2); Basophils Percent Auto 0.5 % (0-2); Eosinophils Absolute Auto 0.1 X10*3/uL (0.0-0.4); Eosinophils Percent Auto 0.9 % (0-4); Hematocrit 38.1 % (42-52); Hemoglobin 12.1 g/dl (14.0-18.0); Imm Gran Abs Auto 0.07 X10*3/uL (0.00-0.03); Imm Gran Pct Auto 0.5 % (0.0-0.4); Lymphocytes Absolute Auto 1.3 X10*3/uL (1.2-4.9); Lymphocytes Percent Auto 9.7 % (20-40); Mean Corpuscular HGB Conc 31.8 g/dl (31.0-36.0); Mean Corpuscular Hemoglobin 30.6 pg (27.0-33.0); Mean Corpuscular Volume 96.5 fL (80-98); Mean Platelet Volume 8.2 fL (9.4-12.4); Monocytes Absolute Auto 0.8 X10*3/uL (0.1-1.2); Monocytes Percent Auto 5.8 % (2-11); Neutrophils Absolute Auto 10.9 X10*3/uL (2.0-8.3); Neutrophils Percent Auto 82.6 % (45-73); Platelet Count 312 X10*3/uL (160-400); Red Blood Count 3.95 X10*6/uL (4.60-5.80); White Blood Count 13.3 X10*3/uL (4.8-10.8)
[2020-03-05] MEDS: ondansetron HCL/NS 16 MG/50 ML PIGGYBACK 200 MG IV (12:21)
[2020-03-05] MEDS: diphenhydrAMINE HCL 25 MG TABLET PO (12:21)
[2020-03-05] MEDS: Famotidine/PF 20 MG/2 ML VIAL IVPUSH (12:21)
--- NOTE | 2020-03-05 12:33 | PM.HEMONCPN ---
Medical Summary - Medical Summary Date of Service: 03/05/20 Chief complaint: Follow-up and scheduled treatment Medical Summary: Diagnosis: Metastatic lung cancer May CT chest demonstrated small lobular right upper lobe pulmonary nodule, wedge resection for diagnostic purposes discussed by Dr. Marina. However this was canceled due to peripheral vascular disease and other medical issues. Repeat CT chest on 05/16/2019 demonstrated nodules in the right upper lobe which increased in size and spiculated in nature. Additional nodule in the right upper lobe as well as left lower lobe. PET-CT performed at [facility] on 06/14/2019 revealed abnormal FDG uptake in medial right lung nodule, SUV 5.6 concerning for malignancy. Large posterior right upper lobe pulmonary nodule SUV 6.9, small left upper lobe suprahilar/subpleural nodule SUV 4 concerning for malignancy. FDG uptake in posterior medial left lower lobe pulmonary nodule SUV 5.4 concerning for malignancy. Abnormal FDG uptake within lymph nodes including small right supraclavicular lymph node SUV 4.7, right paratracheal lymph nodes, subcarinal lymph node and right hilar lymph nodes. Abnormal FDG uptake within right superior acetabulum involving right superior ramus SUV 7.8 concerning for osseous metastatic disease. Patient refused biopsy of bone lesion in hip, he was scheduled for CT of the hip before XRT but did not go for it. He received palliative radiation therapy at [facility]. Brain MRI with and without contrast performed May 2019 was negative for metastatic disease. He started palliative chemotherapy with carboplatin, pemetrexed and pembrolizumab on 07/17/2019. PET scan performed 12/03/2019 revealed abnormal FDG activity in the right lung apical pleura, right infrahilar legion and weak activity in right upper lobe pulmonary nodule. No activity in the abdomen. Week FDG activity associated with a fracture in the right inferior pubic ramus. Overall this is much improved compared to PET scan performed in June at [facility]. Interval History Interval history: Patient is here for treatment and follow-up. He is doing quite well and reports no acute symptoms at this time. He denies any nausea or abdominal discomfort. He is having ongoing problems with his foot ulcer but at this time it is not infected. He is not on any antibiotics at this time. He denies fever or chills. He denies fever, chills, cough, shortness of breath or leg swelling. No diarrhea or constipation at this time. Review of Systems - Constitutional Reports as per HPI, Reports no additional constitutional complaints - Cardiovascular Reports no additional cardiovascular complaints - Respiratory Reports no additional respiratory complaints - Gastrointestinal Reports no additional gastrointestinal complaints [facility] Medical History: Medical History (Last Reviewed 03/05/20 @ 13:22 by Roberto Londono MD) Amputation of one or more toes BPH (benign prostatic hyperplasia) Bronchitis, chronic CAD (coronary artery disease) COPD (chronic obstructive pulmonary disease) Depression Diabetes type 2 with atherosclerosis of arteries of extremities GERD (gastroesophageal reflux disease) Hyperlipidemia Hypertension Lung cancer SHANIQUA (obstructive sleep apnea) Peripheral neuropathy PVD (peripheral vascular disease) Smoker Family History: Family History (Last Reviewed 03/05/20 @ 13:22 by Roberto Londono MD) Father History of lung cancer Mother History of hypertension Family history of Alzheimer's disease Maternal Uncle History of colon cancer Surgical History: Surgical History (Last Reviewed 03/05/20 @ 13:22 by Roberto Londono MD) History of angioplasty History of bronchoscopy History of cholecystectomy History of hernia repair History of removal of cyst History of tonsillectomy Osteomyelitis of fourth toe of right foot Home Medications and Allergies Current Medications: Current Medications Generic Name Dose Route Start Last Admin Trade Name Freq PRN Reason Stop Dose Admin Diphenhydramine HCl 25 mg 03/05/20 00:00 03/05/20 12:21 Diphenhydramine Hcl 25 Mg Tablet PO 03/05/20 23:59 25 mg ONCE MOLLY Administration Famotidine 20 mg 03/05/20 00:00 03/05/20 12:21 Famotidine/Pf 20 Mg/2 Ml Vial IVPUSH 03/05/20 23:59 20 mg ONCE MOLLY Administration Heparin Sodium (Porcine) 500 unit 03/05/20 00:00 Heparin Sodium,Porcine Flush 500 Unit/5 Ml Syringe IVFLUSH 03/05/20 23:59 ONCE MOLLY Dexamethasone Sodium Phosphate 12 mg in 50 mls @ 100 mls/hr 03/05/20 00:00 Decadron IV 03/05/20 23:59 ONCE MOLLY Ondansetron HCl 16 mg in 50 mls @ 200 mls/hr 03/05/20 00:00 03/05/20 12:21 Zofran IV 03/05/20 23:59 200 mls/hr ONCE MOLLY Administration Fosaprepitant 150 mg/ Sodium 150 mls @ 300 mls/hr 03/05/20 00:00 Chloride IV 03/05/20 23:59 ONCE [facility] Home Medications Medication Instructions Recorded Confirmed Type aspirin 81 mg tablet,delayed 81 mg PO DAILY 12/18/19 03/05/20 History release atorvastatin 40 mg tablet 40 mg PO BEDTIME 12/18/19 03/05/20 History clopidogrel 75 mg tablet 75 mg PO DAILY 12/18/19 03/05/20 History famotidine 20 mg tablet 20 mg PO DAILY 12/18/19 03/05/20 History folic acid 1 mg tablet 1 mg PO DAILY 12/18/19 03/05/20 History isosorbide mononitrate 60 mg 60 mg PO DAILY 12/18/19 03/05/20 History tablet,extended release 24 hr loratadine 10 mg capsule 10 mg PO DAILY 12/18/19 03/05/20 History magnesium gluconate 27 mg 27 mg PO DAILY tab 12/18/19 03/05/20 History magnesium (500 mg) tablet omega-3 fatty acids 1,000 mg 1,000 mg PO BID 12/18/19 03/05/20 History capsule quetiapine 50 mg tablet 50 mg PO BID 12/18/19 03/05/20 History tamsulosin 0.4 mg capsule 0.4 mg PO DAILY 12/18/19 03/05/20 History thiamine HCl (vitamin B1) 100 mg 100 mg PO DAILY 12/18/19 03/05/20 History tablet venlafaxine 37.5 mg 37.5 mg PO DAILY 12/18/19 03/05/20 History capsule,extended release 24 hr vitamin B complex 1 tab PO DAILY 12/18/19 03/05/20 History dexamethasone 4 mg PO BID 01/06/20 03/05/20 History Spiriva with HandiHaler 1 cap INHALATION DAILY 01/08/20 03/05/20 History albuterol sulfate [ProAir HFA] 1 inh INHALATION QID PRN 01/08/20 03/05/20 History ferrous sulfate 325 mg PO BID 01/08/20 03/05/20 History gabapentin 300 mg PO TID 01/08/20 03/05/20 History gabapentin 600 mg PO TID 01/08/20 03/05/20 History multivitamin 1 tab PO DAILY 01/08/20 03/05/20 History omeprazole 20 mg PO BID 01/08/20 03/05/20 History ondansetron HCl [Zofran] 8 mg PO Q8H PRN 01/08/20 03/05/20 History fluticasone propionate 1 puff INHALATION BID 02/17/20 03/05/20 History Allergies Allergy/AdvReac Type Severity Reaction Status Date / Time lisinopril [LISINOPRIL] Allergy Intermediate BLEEDING Verified 01/23/20 15:44 IN MOUTH,SWELLING Josh inhibitors Allergy Unknown Unknown Uncoded 12/18/19 11:48 Exam Vital signs: Vital Signs Temp 97.7 F 03/05/20 11:43 Pulse 101 H 03/05/20 11:43 Resp 18 03/05/20 11:43 BP 148/66 H 03/05/20 11:43 Pulse Ox 96 03/05/20 11:43 Intake & Output 03/04/20 03/05/20 03/05/20 18:59 06:59 18:59 Other: Weight 77.2 kg Weight 77.2 kg Body Mass Index 24.4 - Constitutional Present: no acute distress - Routine HEENT Exam Head: Present: normal inspection - Routine Neck Exam Absent: lymphadenopathy - Routine Cardiovascular Exam Cardiovascular: Present: RRR, S1, S2 - Routine Abdominal Exam Present: normal bowel sounds, soft - Routine Extremities Exam Absent: pedal edema Data - Labs CBC & Chem 7: 03/05/20 12:00 03/05/20 12:00 Labs: 12/16/19 00:00 0.9 % Sodium Chloride [Ns] 500 ml IVCONT 500 mls/hr Famotidine/PF [Pepcid/PF] 20 mg IVPUSH ONCE Heparin Sodium,Porcine Flush 500 unit IVFLUSH ONCE dexAMETHasone sod phosphate/NS [Decadron] 12 mg in 50 ml IV ONCE diphenhydrAMINE HCL [Benadryl] 25 mg PO ONCE ondansetron HCL/NS [Zofran] 16 mg in 50 ml IV ONCE 12/16/19 14:00 Complete Blood Count Auto Diff Routine Comprehensive Met. Panel Routine 12/17/19 00:00 0.9 % Sodium Chloride [Ns] 500 ml IVCONT 500 mls/hr Famotidine/PF [Pepcid/PF] 20 mg IVPUSH ONCE Heparin Sodium,Porcine Flush 500 unit IVFLUSH ONCE PEMEtrexed Disodium [Alimta] 975 mg 0.9 % Sodium Chloride [Ns] 61 ml IV ONCE dexAMETHasone sod phosphate/NS [Decadron] 12 mg in 50 ml IV ONCE diphenhydrAMINE HCL [Benadryl] 25 mg PO ONCE ondansetron HCL/NS [Zofran] 16 mg in 50 ml IV ONCE 12/30/19 12:47 Complete Blood Count Auto Diff Routine Comprehensive Met. Panel Routine 01/06/20 00:00 0.9 % Sodium Chloride [Ns] 500 ml IVCONT 500 mls/hr Denosumab [Xgeva] 120 mg SUBCUT ONCE Famotidine/PF [Pepcid/PF] 20 mg IVPUSH ONCE Heparin Sodium,Porcine Flush 500 unit IVFLUSH ONCE PEMEtrexed Disodium [Alimta] 975 mg 0.9 % Sodium Chloride [Ns] 61 ml IV ONCE Pembrolizumab [Keytruda] 200 mg 0.9 % Sodium Chloride [Ns] 50 ml IV ONCE dexAMETHasone sod phosphate/NS [Decadron] 12 mg in 50 ml IV ONCE diphenhydrAMINE HCL [Benadryl] 25 mg PO ONCE ondansetron HCL/NS [Zofran] 16 mg in 50 ml IV ONCE 01/06/20 09:37 Carcinoembryonic Antigen Routine Complete Blood Count Auto Diff Routine Comprehensive Met. Panel Routine 01/06/20 10:08 Cyanocobalamin (Vitamin B-12) [Vitamin B-12] 1,000 mcg IM ONCE ONE 01/27/20 00:00 0.9 % Sodium Chloride [Ns] 500 ml IVCONT 250 mls/hr Famotidine/PF [Pepcid/PF] 20 mg IVPUSH ONCE Heparin Sodium,Porcine Flush 500 unit IVFLUSH ONCE PEMEtrexed Disodium [Alimta] 1,000 mg 0.9 % Sodium Chloride [Ns] 60 ml IV ONCE Pembrolizumab [Keytruda] 200 mg 0.9 % Sodium Chloride [Ns] 50 ml IV ONCE dexAMETHasone sod phosphate/NS [Decadron] 12 mg in 50 ml IV ONCE diphenhydrAMINE HCL [Benadryl] 25 mg PO ONCE 01/27/20 10:13 CBC W/MANUAL DIFF [Complete Blood Count Man Dif] Routine Profile w/ Glucose [place] [Comprehensive Met. Panel] Routine 01/27/20 13:00 ondansetron HCL/NS [Zofran] 16 mg in 50 ml IV ONCE 01/27/20 14:19 Cyanocobalamin (Vitamin B-12) [Vitamin B-12] 1,000 mcg IM ONCE ONE 02/26/20 00:00 Famotidine/PF [Pepcid/PF] 20 mg IVPUSH ONCE Fosaprepitant Dimeglumine [Emend] 150 mg 0.9 % Sodium Chloride [Ns] 145 ml IV ONCE Heparin Sodium,Porcine Flush 500 unit IVFLUSH ONCE dexAMETHasone sod phosphate/NS [Decadron] 12 mg in 50 ml IV ONCE diphenhydrAMINE HCL [Benadryl] 25 mg PO ONCE ondansetron HCL/NS [Zofran] 16 mg in 50 ml IV ONCE 02/28/20 00:00 Famotidine/PF [Pepcid/PF] 20 mg IVPUSH ONCE Fosaprepitant Dimeglumine [Emend] 150 mg 0.9 % Sodium Chloride [Ns] 145 ml IV ONCE Heparin Sodium,Porcine Flush 500 unit IVFLUSH ONCE dexAMETHasone sod phosphate/NS [Decadron] 12 mg in 50 ml IV ONCE diphenhydrAMINE HCL [Benadryl] 25 mg PO ONCE ondansetron HCL/NS [Zofran] 16 mg in 50 ml IV ONCE 03/05/20 12:00 Complete Blood Count Auto Diff Routine Laboratory Last Values WBC 13.3 X10*3/uL (4.8-10.8) H 03/05/20 12:00 RBC 3.95 X10*6/uL (4.60-5.80) L 03/05/20 12:00 Hgb 12.1 g/dl (14.0-18.0) L 03/05/20 12:00 Hct 38.1 % (42-52) L 03/05/20 12:00 MCV 96.5 fL (80-98) 03/05/20 12:00 MCH 30.6 pg (27.0-33.0) 03/05/20 12:00 MCHC 31.8 g/dl (31.0-36.0) 03/05/20 12:00 RDW 16.0 % (11.0-16.0) 03/05/20 12:00 Plt Count 312 X10*3/uL (160-400) D 03/05/20 12:00 MPV 8.2 fL (9.4-12.4) L 03/05/20 12:00 Immature Gran % (Auto) 0.5 % (0.0-0.4) H 03/05/20 12:00 Neut % (Auto) 82.6 % (45-73) H 03/05/20 12:00 Lymph % (Auto) 9.7 % (20-40) L 03/05/20 12:00 [place] % (Auto) 5.8 % (2-11) 03/05/20 12:00 Eos % (Auto) 0.9 % (0-4) 03/05/20 12:00 Baso % (Auto) 0.5 % (0-2) 03/05/20 12:00 Neut # (Auto) 12.3 X10*3/uL (2.0-8.3) H 12/16/19 14:00 Lymph # (Auto) 1.3 X10*3/uL (1.2-4.9) 03/05/20 12:00 [place] # (Auto) 0.8 X10*3/uL (0.1-1.2) 03/05/20 12:00 Eos # (Auto) 0.1 X10*3/uL (0.0-0.4) 03/05/20 12:00 Baso # (Auto) 0.1 X10*3/uL (0.0-0.2) 03/05/20 12:00 Abs Immat Gran (auto) 0.07 X10*3/uL (0.00-0.03) H 03/05/20 12:00 Absolute Neuts (auto) 10.9 X10*3/uL (2.0-8.3) H 03/05/20 12:00 Absolute Nucleated RBC 0.000 X10*3/uL (0.0-0.012) 03/05/20 12:00 Nucleated RBC % (auto) 0.0 /100WBC (0.0-0.2) 03/05/20 12:00 Neutrophils % (Manual) 83 % (45-73) H 01/27/20 10:13 Band Neutrophils % 2 % (3-5) L 01/27/20 10:13 Lymphocytes % (Manual) 7 % (20-40) L 01/27/20 10:13 Monocytes % (Manual) 5 % (2-11) 01/27/20 10:13 Eosinophils % (Manual) 1 % (0-4) 01/27/20 10:13 Basophils % (Manual) 2 % (0-1) H 01/27/20 10:13 Abs Neuts (Manual) 10.5 X10*3/uL (2.2-7.9) H 01/27/20 10:13 Lymphocytes # (Manual) 0.9 X10*3/uL (0.6-4.8) 01/27/20 10:13 Monocytes # (Manual) 0.6 X10*3/uL (0.0-1.2) 01/27/20 10:13 Eosinophils # (Manual) 0.1 X10*3/UL (0.0-0.8) 01/27/20 10:13 Basophils # (Manual) 0.2 X10*3/uL (0.0-0.3) 01/27/20 10:13 Platelet Estimate INCREASED (NORMAL) 01/27/20 10:13 Plt Morphology Comment NORM 01/27/20 10:13 RBC Morphology NORMAL 01/27/20 10:13 Sodium 133 mmol/L (135-145) L 01/27/20 10:13 Potassium 4.3 mmol/l (3.3-5.1) 01/27/20 10:13 Chloride 100 mmol/L (96-108) 01/27/20 10:13 Carbon Dioxide 26 mmol/L (22-29) 01/27/20 10:13 Anion Gap 11 (12-20) L 01/27/20 10:13 BUN 7 mg/dL (9-16) L 01/27/20 10:13 Creatinine 0.67 mg/dL (0.5-1.4) 01/27/20 10:13 Estim Creat Clear Calc 121.0 01/27/20 10:13 Estimated GFR > 60 01/27/20 10:13 Random Glucose 178 mg/dL (60-115) H 01/27/20 10:13 Calcium 8.3 mg/dL (8.4-10.2) L 01/27/20 10:13 Total Bilirubin 0.3 mg/dL (0.0-1.0) 01/27/20 10:13 AST 17 U/L (5-37) 01/27/20 10:13 ALT 19 U/L (0-40) 01/27/20 10:13 Alkaline Phosphatase 229 U/L (39-117) H D 01/27/20 10:13 Total Protein 6.2 g/dL (6.5-8.0) L 01/27/20 10:13 Albumin 3.5 g/dL (3.5-5.0) 01/27/20 10:13 Carcinoembryonic Ag 5.30 mg/mL 01/06/20 09:37 Progress Note: A/P (1) Non-small cell lung cancer with metastasis Status: Chronic Assessment and plan: 1. This is a 59-year-old male, chronic smoker who has been diagnosed with metastatic lung cancer. On 06/27/2019 he underwent bronchoscopy and biopsy which revealed poorly differentiated adenocarcinoma, negative for EGFR, BRAF mutation, ALK rearrangement. PD L1 positive, TPS 25%, panTRK negative. He started palliative chemotherapy with carboplatin, pemetrexed and pembrolizumab on 07/17/2019. He is on folic acid supplementation and vitamin B12 supplementation. He is on denosumab for bone Mets. This is being on hold because of recent episodes of hypocalcemia. His last imaging was in November which shows improvement on PET scan. 2. Right foot osteomyelitis, and recurrent infections. Status post several debridements. This has been a chronic issue, he has been through multiple courses of antibiotics. Follow-up in 6 weeks. - Time Spent With Patient Total time spent is greater than 50% in coordination of care (as documented) at patient's floor/unit and/or counseling patient: 15 - 24 minutes
[2020-03-05 12:36] LABS: Alanine Aminotransferase 11 U/L (0-40); Alkaline Phosphatase 197 U/L (39-117); Anion Gap 12 (12-20); Aspartate Amino Transferase 15 U/L (5-37); Bilirubin Total 0.2 mg/dL (0.0-1.0); Blood Urea Nitrogen 10 mg/dL (9-16); Calcium 8.3 mg/dL (8.4-10.2); Carbon Dioxide 23 mmol/L (22-29); Chloride 105 mmol/L (96-108); Creatinine Clr Calc Pharmacy 119.2; Estimated Glomerular Filt Rate > 60; Glucose Random 188 mg/dL (60-115); Sodium 136 mmol/L (135-145)
[2020-03-05] MEDS: dexAMETHasone sod phosphate/NS 12 MG/50 ML PIGGYBACK 200 MG IV (12:45)
[2020-03-05 13:37] LABS: Thyroid Stimulating Hormone 0.96 uIU/mL (0.32-4.0)
[2020-03-05] MEDS: Fosaprepitant Dimeglumine 150 MG in 0.9 % Sodium Chloride 145 ML 300 MG IV (13:50)
[2020-03-05] MEDS: Cyanocobalamin (Vitamin B-12) 1,000 MCG/ML VIAL 1000 MCG IM (13:51)
--- NOTE | 2020-03-05 16:02 | MHC.HEMONC ---
Pt here for chemo which was delayed due to transportation issue and pt overslept once. He is at baseline and just came from Dr Narvaez's office where he gets left foot debridement He has not had fevers and is not taking any antibiotics. Seen by Dr Mann. Labs reviewed. Calcium a little low so Denosumab was held. B12 given with chemo which he yuniel well.
[2020-03-26 08:21] VITALS: BMI 24.4
[2020-04-03 10:37] VITALS: BP 149/77; PULSE 107; RESP 18; TEMP 37.1; O2SAT 95; BMI 25.4
[2020-04-03 10:38] LABS: MANUAL DIFF FLAG NO
[2020-04-03 10:45] LABS: Basophils Absolute Auto 0.1 X10*3/uL (0.0-0.2); Basophils Percent Auto 0.3 % (0-2); Eosinophils Absolute Auto 0.4 X10*3/uL (0.0-0.4); Eosinophils Percent Auto 2.3 % (0-4); Hematocrit 34.9 % (42-52); Hemoglobin 11.1 g/dl (14.0-18.0); Imm Gran Abs Auto 0.08 X10*3/uL (0.00-0.03); Imm Gran Pct Auto 0.5 % (0.0-0.4); Lymphocytes Absolute Auto 1.6 X10*3/uL (1.2-4.9); Lymphocytes Percent Auto 10.1 % (20-40); Mean Corpuscular HGB Conc 31.8 g/dl (31.0-36.0); Mean Corpuscular Volume 94.3 fL (80-98); Mean Platelet Volume 8.7 fL (9.4-12.4); Monocytes Absolute Auto 1.4 X10*3/uL (0.1-1.2); Monocytes Percent Auto 8.9 % (2-11); Neutrophils Percent Auto 77.9 % (45-73); Platelet Count 296 X10*3/uL (160-400); Red Cell Distribution Width 14.9 % (11.0-16.0); White Blood Count 15.4 X10*3/uL (4.8-10.8)
[2020-04-03 11:16] LABS: Alanine Aminotransferase 15 U/L (0-40); Albumin Level 3.6 g/dL (3.5-5.0); Alkaline Phosphatase 178 U/L (39-117); Anion Gap 11 (12-20); Aspartate Amino Transferase 14 U/L (5-37); Bilirubin Total 0.2 mg/dL (0.0-1.0); Blood Urea Nitrogen 9 mg/dL (9-16); Calcium 8.1 mg/dL (8.4-10.2); Carbon Dioxide 27 mmol/L (22-29); Chloride 104 mmol/L (96-108); Creatinine Clr Calc Pharmacy 115.8; Estimated Glomerular Filt Rate > 60; Glucose Random 202 mg/dL (60-115); Sodium 138 mmol/L (135-145); Total Protein 6.2 g/dL (6.5-8.0)
[2020-04-03] MEDS: Cyanocobalamin (Vitamin B-12) 1,000 MCG/ML VIAL 1000 MCG IM (11:48)
[2020-04-03] MEDS: dexAMETHasone 6 MG TABLET 12 MG PO (11:48)
[2020-04-03] MEDS: ondansetron HCL/NS 16 MG/50 ML PIGGYBACK 200 MG IV (11:48)
[2020-04-03] MEDS: Famotidine/PF 20 MG/2 ML VIAL IVPUSH (11:48)
[2020-04-03] MEDS: diphenhydrAMINE HCL 25 MG TABLET PO (11:49)
--- NOTE | 2020-04-06 10:19 | MHC.HEMONC ---
PA ARACELI XCAS AND SHELLEY REQUESTED
--- NOTE | 2020-04-08 11:24 | MHC.HEMONC ---
PA FOR PEMBOROLIZUMAB INJ. APPROVED ([id number]). PA #[id number]. EFF: 04/07/2020 to 09/30/2020. NEW PA TO BE INITIED IN
--- NOTE | 2020-06-15 13:32 | MHC.HEMONCSW ---
patient on 04/21/2020
== END 2020-05-16 | disposition home or self-care (01) ==
LOC: HO.ONC 10:30
PROVIDERS: PCP Family Medicine; Visit Provider Internal Medicine
DX: Z51.11 Encounter for antineoplastic chemotherapy (principal); C34.90 Malignant neoplasm of unspecified part of unspecified bronchus or lung; C79.51 Secondary malignant neoplasm of bone; E83.51 Hypocalcemia; M86.9 Osteomyelitis, unspecified; F17.200 Nicotine dependence, unspecified, uncomplicated; Z92.3 Personal history of irradiation
CPT/HCPCS: 36415; 80053; 82378; 83735; 84443; 85007; 85025; 85027; 96361; 96366; 96367; 96372; 96375; 96411; 96413; 99214; J0897; J1100; J1453; J2405; J8540; J9271; J9305; Q0163

== ENCOUNTER → 2020-04-15 12:56 | Outpatient (BNVA) | payer MEDICAID, SELFPAY | PROVIDERS: PCP Family Medicine; Visit Provider Surgery | DX: S98.139D Complete traumatic amputation of one unspecified lesser toe, subsequent encounter (principal) | CPT/HCPCS: 99212 ==

== ENCOUNTER 2020-04-19 07:28 | Inpatient (IN) | payer MEDICAID, SELFPAY ==
[2020-04-19] VITALS (11 sets, daily range): BP systolic 112–146; BP diastolic 76–98; PULSE 110–118; RESP 14–26; TEMP 35–36.4; O2SAT 94–97; BMI 25.8
--- NOTE | ~2020-04-19 | CT_ITS ---
EXAMINATION: CT ABDOMEN AND PELVIS WITH CONTRAST CLINICAL INFORMATION: Constipation, pain, and distention COMPARISON: CT of the abdomen and pelvis 03/28/2020 TECHNIQUE: Multidetector volumetric images were obtained from the superior aspect of the liver through the pubic symphysis following administration 85 mL of Omnipaque 350 intravenous contrast. Sagittal and coronal reformatted images were obtained on the technologist's workstation. Oral contrast: Yes This CT examination was performed using dose optimization techniques as appropriate, variously including the following: *Automated exposure control *Adjustment of mA and/or kV according to patient size (this includes techniques or standardized protocols for targeted exams where dose is matched to indication/reason for exam; i.e. extremities or head) *Use of iterative reconstruction technique DLP: 620 mGy-cm FINDINGS: LUNG BASES: There is a small left pleural effusion with associated compressive atelectasis at the left lung base. There is atelectasis at the bilateral lung bases. There is a 0.8 cm nodule at the medial left lung base, unchanged since the prior study. There is a small pericardial effusion. LIVER, GALLBLADDER, AND BILIARY TREE: The liver is normal in size, shape, and attenuation. The liver surface appears mildly nodular. No focal hepatic lesion or biliary ductal dilatation is present. The gallbladder is surgically absent. PANCREAS: There are scattered pancreatic calcifications, that may represent sequela of chronic pancreatitis. The pancreatic duct is mildly dilated. Again demonstrated are 2 cysts, one in the pancreatic head, estimated to measure approximately 1.8 cm, and one in the pancreatic body, estimated to measure 1.5 cm. Measurements are less accurate due to the presence of ascites. SPLEEN: Unremarkable. ADRENAL GLANDS: Unremarkable. KIDNEYS AND URETERS: The kidneys are normal in size, shape, and attenuation. The kidneys are lobulated in contour. No hydronephrosis or hydroureter. Again demonstrated is a mildly complex cyst in the inferior pole of the left kidney that measures up to 2.5 cm. There is a simple appearing cyst in the inferior pole of the right kidney that measures 1.7 cm. There are 2 nonobstructive calculi in the right kidney measuring up to 0.3 cm. BLADDER: The bladder is decompressed, however the wall appears thickened. GASTROINTESTINAL TRACT: The stomach and small bowel are not dilated. There is diverticulosis of the colon without evidence of diverticulitis. ABDOMINAL WALL: Small, fat-containing bilateral inguinal hernias. There is edema of the body wall. LYMPH NODES/ PERITONEUM: There are scattered periaortic lymph nodes that measure up to 1.2 cm in short axis. There is a moderate amount of ascites throughout the abdomen and pelvis. VASCULAR: Normal caliber of the abdominal aorta. Extensive atherosclerotic calcifications and plaques within the abdominal aorta and bilateral iliac arteries. PELVIC VISCERA: Calcifications within the prostate gland. OSSEOUS STRUCTURES: Redemonstration of fractures of the right superior and inferior pubic rami. There is no significant healing. Healed right-sided rib fractures are again demonstrated. Multilevel degenerative changes of the spine. CT/CT abdomen pelvis w con IMPRESSION: 1. Evidence for fluid overload including a small pericardial effusion, small left pleural effusion, small to moderate ascites, and mild anasarca. 2. 0.8 cm nodule at the left lung base, similar to the prior study. 3. The liver surface appears mildly nodular. Recommend correlation with any history of cirrhosis and liver enzymes. 4. Redemonstration of multiple calcifications within the pancreas. Unchanged mild dilatation of the pancreatic duct. Redemonstration of 2 cystic lesions within the pancreas. Consider follow-up MRI for further evaluation. 5. Mildly complex cyst in the inferior pole of the left kidney and simple appearing cyst of the right kidney are again demonstrated. These can also be further evaluated with MRI. 6. Nonspecific periaortic lymph nodes that are mildly enlarged, measuring up to 1.2 cm in short axis. 7. Colonic diverticulosis without evidence of diverticulitis. 8. Redemonstration of fractures of the right superior and inferior pubic rami without significant healing.
--- NOTE | ~2020-04-19 | CT_ITS ---
EXAMINATION: CT CHEST WITHOUT CONTRAST CLINICAL INFORMATION: Rule out pericardial effusion COMPARISON: Previous chest x-ray most recent 04/19/2020 and chest CTA 03/27/2020 TECHNIQUE: Multidetector volumetric CT imaging of the chest was done. Axial MIP volume rendering provided. Sagittal and coronal reformatted images were obtained. This CT examination was performed using dose optimization techniques as appropriate, variously including the following: *Automated exposure control *Adjustment of mA and/or kV according to patient size (this includes techniques or standardized protocols for targeted exams where dose is matched to indication/reason for exam; i.e. extremities or head) *Use of iterative reconstruction technique DLP: 300 mGy-cm FINDINGS: REGIONAL ENGINEER: Enlarged cardiac silhouette LUNGS: There is evidence of emphysema. There is a 1.7 cm right upper lobe nodule axial image 16 series 3. This does not appear appreciably changed from recent March 2010 exam. There is narrowing of the right mainstem bronchus and increased surrounding soft tissue. This is similar to previous exam. There is subsegmental atelectasis at the lung bases, left greater than right. MEDIASTINUM: There is a large pericardial effusion. This appears loculated adjacent to the right side of the heart and at the apex. This is slightly lobulated in shape. This is higher in attenuation than simple fluid measures. Hounsfield units without contrast measure 40-45. Appearance is questionable for complex pericardial effusion or hemopericardium. Given history of malignancy, malignant pericardial effusion should also be considered. This is significantly increased in size from 03/27/[address] scan. This appears increased in size from recent abdominal pelvic CT scan 04/19/2020. There is mediastinal lymphadenopathy that does not appear appreciably changed. There evaluation for hilar adenopathy is limited without contrast. There is likely right hilar and right subcarinal/infrahilar lymphadenopathy as well. This appears unchanged.. There is coronary artery calcification. There is atherosclerotic disease of the aorta. The thoracic aorta is upper normal in size and PLEURA: There is a small left pleural effusion. There is no right pleural effusion. AXILLA: There is increased fat stranding of the left axilla and chest wall. There is a shotty left axillary lymphadenopathy. This is new or increased from March 2020 exam. Right axilla and chest wall are unremarkable. UPPER ABDOMEN: There is a upper abdominal lymphadenopathy. There is retrocrural lymphadenopathy. There is a be is trace ascites. There is diffuse fat stranding in seen in the central upper abdomen. OSSEOUS STRUCTURES: There are old right lower posterior rib fractures. There are degenerative changes of the spine. CT/CT chest wo con IMPRESSION: Large probably loculated pericardial effusion adjacent to the right side heart and at the apex. This is significantly increased in size from previous chest CT 03/27/2020 and increased in size from more recent abdominal CT 04/19/2020. This is higher in attenuation than simple fluid and is questionable for hemopericardium. Stable right upper lobe pulmonary nodule. Stable lymphadenopathy. Emphysema. Small left pleural effusion. Findings were communicated to Dr. Shukla by telephone on 04/21/2020 at 1:45 PM.
--- NOTE | ~2020-04-19 | XR_ITS ---
EXAMINATION: XR chest 1V CLINICAL INFORMATION: Cough COMPARISON: 03/27/2020 TECHNIQUE: Portable chest x-ray marked 7:47 AM Tubes and lines: None Lungs and Judy: There is a round opacity projecting over the right upper lobe between the fifth and sixth posterior rib roughly measure 2 cm concerning for possible lung nodule versus artifact . This correlates with the nodule seen on the CT scan from March 2020, previously described by basilar atelectasis is improving. Pleura: Blunting of left costophrenic angle suggesting small effusion. Heart and mediastinum: Heart borderline enlarged.. Bones: Skeletal structures included are normal for patient's age. XR/XR chest 1V IMPRESSION: Round 2 cm nodule projecting over the right upper lobe correlate with the nodule seen on the CT scan unchanged allowing variation in technique.. Improving bibasilar atelectasis. Blunting of left costophrenic angle suggesting small effusion.
--- NOTE | 2020-04-19 07:34 | ECG_ITS ---
Test Reason : ABD PAIN Blood Pressure : / mmHG Vent. Rate : 118 BPM Atrial Rate : 118 BPM P-R Int : 104 ms QRS Dur : 088 ms QT Int : 340 ms P-R-T Axes : 000 011 055 degrees QTc Int : 477 ms Sinus tachycardia with short CT Septal infarct (cited on or before 27-MAR-2020) Abnormal ECG When compared with ECG of 27-MAR-2020 21:44, Nonspecific T wave abnormality now evident in Lateral leads Referred By: Zora Francis Electronically Signed By:MAINOR CRAFT
--- NOTE | 2020-04-19 07:34 | ED.ABDPAIN ---
HPI - Abdominal Pain General Stated Complaint: constipation x5 days Time Seen by Provider: 04/19/20 07:34 Source: patient and EMS Mode of arrival: EMS Limitations: no limitations History of Present Illness HPI narrative: 59 yo male with end stage lung cancer - terminal he is on palliative chemo per him, comes in with 5 days of constipation, n/v and worsening LLQ pain - has mets to bone, throat, no flatus MD elicited complaint: abdominal pain Pertinent past history: constipation and other (cancer) Onset (ago): day(s) (5) Pain Consistency: constant Location: LLQ Severity: moderate Quality: stabbing and aching Radiation: none Migration to: no migration Exacerbating factors: movement Relieving factors: nothing Associated symptoms: nausea, vomiting, constipation and anorexia Related Data Home Medications Medication Instructions Recorded Confirmed aspirin 81 mg tablet,delayed 81 mg PO DAILY 12/18/19 04/15/20 release atorvastatin 40 mg tablet 40 mg PO BEDTIME 12/18/19 04/15/20 clopidogrel 75 mg tablet 75 mg PO DAILY 12/18/19 04/15/20 famotidine 20 mg tablet 20 mg PO DAILY 12/18/19 04/15/20 folic acid 1 mg tablet 1 mg PO DAILY 12/18/19 04/15/20 isosorbide mononitrate 60 mg 60 mg PO DAILY 12/18/19 04/15/20 tablet,extended release 24 hr loratadine 10 mg capsule 10 mg PO DAILY 12/18/19 04/15/20 magnesium gluconate 27 mg 27 mg PO DAILY tab 12/18/19 04/15/20 magnesium (500 mg) tablet quetiapine 50 mg tablet 50 mg PO BID 12/18/19 04/15/20 tamsulosin 0.4 mg capsule 0.4 mg PO DAILY 12/18/19 04/15/20 thiamine HCl (vitamin B1) 100 mg 100 mg PO DAILY 12/18/19 04/15/20 tablet venlafaxine 37.5 mg 37.5 mg PO DAILY 12/18/19 04/15/20 capsule,extended release 24 hr vitamin B complex 1 tab PO DAILY 12/18/19 04/15/20 Spiriva with HandiHaler 1 cap INHALATION DAILY 01/08/20 04/15/20 albuterol sulfate [ProAir HFA] 1 inh INHALATION QID PRN 01/08/20 04/15/20 ferrous sulfate 325 mg PO BID 01/08/20 04/15/20 gabapentin 300 mg PO TID 01/08/20 04/15/20 gabapentin 600 mg PO TID 01/08/20 04/15/20 multivitamin 1 tab PO DAILY 01/08/20 04/15/20 omeprazole 20 mg PO BID 01/08/20 04/15/20 ondansetron HCl [Zofran] 8 mg PO Q8H PRN 01/08/20 04/15/20 fluticasone propionate 1 puff INHALATION BID 02/17/20 04/15/20 Previous Rx's Medication Instructions Recorded oxycodone 5 mg PO Q6H PRN #14 tab 12/26/19 amoxicillin 875 mg-potassium 1 tab PO BID #20 tab 04/01/20 clavulanate 125 mg tablet Allergies Allergy/AdvReac Type Severity Reaction Status Date / Time lisinopril [LISINOPRIL] Allergy Intermediate BLEEDING Verified 01/23/20 15:44 IN MOUTH,SWELLING Josh inhibitors Allergy Unknown Unknown Uncoded 12/18/19 11:48 Review of Systems Review of Systems Constitutional : No Weight loss, No Fever, No Chills ENT/Mouth : No sore throat, No Rhinorrhea Eyes: No Swelling, No Redness Cardiovascular : No Chest Pain, No SOB, NoEdema Respiratory : No Cough, No Sputum, No Wheezing Gastrointestinal : Positive Nausea, Positive Vomiting, no Diarrhea, positive abdominal Pain, No Hematochezia, No Melena, pos constipation Genitourinary : No Dysuria, No Urinary Frequency, No Hematuria, No Urgency Musculoskeletal : No joint pain, No Myalgias, No Joint Swelling Skin : No Skin Lesions, No rash Neuro : pos Weakness, No Numbness, No Dizziness, No Headache Psych : No Anxiety/Panic, No Depression Heme/Lymph: No Bruising, No Lymphadenopathy Endocrine : No Polyuria, No Polydipsia All other systems reviewed and are negative. Physical Exam Vital Signs: Vital Signs: Last Vital Signs Temp 97.6 F 04/19/20 08:40 Pulse 112 H 04/19/20 11:00 Resp 17 04/19/20 11:00 BP 117/81 04/19/20 11:00 Pulse Ox 97 04/19/20 08:40 Body Mass Index 25.8 Appearance: Alert. Oriented X3. in pain, mild acute distress. Eyes: Pupils equal, round and reactive to light. ENT: Pharynx dry MMM Neck: Normal inspection. Neck supple. CVS: Normal heart rate and rhythm. Pulses normal. Respiratory: No respiratory distress. Breath sounds mild diffuse end exp wheezes Abdomen: Mild distention, ttp on L side of abdomen, no rebound or guarding Skin: Skin warm and dry. Normal skin color. Normal skin turgor. Extremities: Mild 1+ pitting edema bilateral LE Neuro: Oriented X 3. No motor deficit. No sensory deficit. Course Course Course Narrative: gentle fluids were ordered, added on trop and bnp given his effusions and reported fluid overload, post fluids he feels his breathing is better in fact, as well as neb treatment helped, he has tachycardia elevated WBC count and lactic acidosis empiric zosyn ordered per medications list I do not see any diuretics so overload appears new planned admit at this time. IV lasix held as he has no respiratory distress MDM - Abdominal Pain MDM Narrative Medical decision making narrative: 59 yo male with end stage lung cancer here with constipation, no flatus, distende abdomen and n/v has had open GB surgery - at this time will need labs, IVF, IV morphine for pain, CT scan for mass/obstruction, neb treatment ordered as well Lab Data Result diagrams: 04/19/20 08:11 04/19/20 08:11 Labs: Lab Results 04/19/20 04/19/20 04/19/20 Range/Units 08:11 08:11 08:11 WBC 26.0 H (4.8-10.8) X10*3/uL RBC 3.51 L (4.60-5.80) X10*6/uL Hgb 10.3 L (14.0-18.0) g/dl Hct 31.4 L (42-52) % MCV 89.5 (80-98) fL MCH 29.3 (27.0-33.0) pg MCHC 32.8 (31.0-36.0) g/dl RDW 16.5 H (11.0-16.0) % Plt Count 881 H D (160-400) X10*3/uL MPV 9.2 L (9.4-12.4) fL Immature Gran % (Auto) 1.1 H (0.0-0.4) % Neut % (Auto) 87.1 H (45-73) % Lymph % (Auto) 4.6 L (20-40) % [place] % (Auto) 7.0 (2-11) % Eos % (Auto) 0.0 (0-4) % Baso % (Auto) 0.2 (0-2) % Lymph # (Auto) 1.2 (1.2-4.9) X10*3/uL [place] # (Auto) 1.8 H (0.1-1.2) X10*3/uL Eos # (Auto) 0.0 (0.0-0.4) X10*3/uL Baso # (Auto) 0.0 (0.0-0.2) X10*3/uL Abs Immat Gran (auto) 0.28 H (0.00-0.03) X10*3/uL Absolute Neuts (auto) 22.7 H (2.0-8.3) X10*3/uL Absolute Nucleated RBC 0.000 (0.0-0.012) X10*3/uL Nucleated RBC % (auto) 0.0 (0.0-0.2) /100WBC Smear Tech's Comments VERIFIED PT (10.8-13.0) SEC INR (0.9-1.1) APTT (24.1-38.0) SEC Sodium 127 L (135-145) mmol/L Potassium 4.8 (3.3-5.1) mmol/L Chloride 91 L (96-108) mmol/L Carbon Dioxide 22 (22-29) mmol/L Anion Gap 19 (12-20) BUN 21 H D (9-16) mg/dL Creatinine 1.19 (0.5-1.4) mg/dL Estim Creat Clear Calc 68.1 Estimated GFR > 60 Random Glucose 178 H (60-115) mg/dL Lactic Acid (0.5-2.0) mmol/L Calcium 8.3 L (8.4-10.2) mg/dL Magnesium 2.5 (1.6-2.6) mg/dL Total Bilirubin 0.7 (0.0-1.0) mg/dL Direct Bilirubin 0.4 (0.0-0.5) mg/dL AST 16 (5-37) U/L ALT 18 (0-40) U/L Alkaline Phosphatase 431 H D (39-117) U/L Total Protein 7.1 (6.5-8.0) g/dL Albumin 4.0 (3.5-5.0) g/dL Lipase (8-78) U/L Urine Color Urine Appearance Urine pH (5.0-8.0) Ur Specific [place] (1.005-1.025) Urine Protein (NEG-TRACE) MG/DL Urine Glucose (UA) (NEG) MG/DL Urine Ketones (NEG) MG/DL Urine Blood (NEG) Urine Nitrite (NEG) Ur Leukocyte Esterase (NEG) Urine RBC (0) /HPF Urine WBC (0-4) /HPF Ur Squamous Epith Cells /LPF Urine Bacteria /LPF Hyaline Casts /LPF COVID-19 (DUNG) Negative (Negative) COVID-19 Clin Com See Note 04/19/20 04/19/20 04/19/20 Range/Units 08:11 08:11 08:11 WBC (4.8-10.8) X10*3/uL RBC (4.60-5.80) X10*6/uL Hgb (14.0-18.0) g/dl Hct (42-52) % MCV (80-98) fL MCH (27.0-33.0) pg MCHC (31.0-36.0) g/dl RDW (11.0-16.0) % Plt Count (160-400) X10*3/uL MPV (9.4-12.4) fL Immature Gran % (Auto) (0.0-0.4) % Neut % (Auto) (45-73) % Lymph % (Auto) (20-40) % [place] % (Auto) (2-11) % Eos % (Auto) (0-4) % Baso % (Auto) (0-2) % Lymph # (Auto) (1.2-4.9) X10*3/uL [place] # (Auto) (0.1-1.2) X10*3/uL Eos # (Auto) (0.0-0.4) X10*3/uL Baso # (Auto) (0.0-0.2) X10*3/uL Abs Immat Gran (auto) (0.00-0.03) X10*3/uL Absolute Neuts (auto) (2.0-8.3) X10*3/uL Absolute Nucleated RBC (0.0-0.012) X10*3/uL Nucleated RBC % (auto) (0.0-0.2) /100WBC Smear Tech's Comments PT 16.6 H (10.8-13.0) SEC INR 1.4 H (0.9-1.1) APTT 44.7 H (24.1-38.0) SEC Sodium (135-145) mmol/L Potassium (3.3-5.1) mmol/L Chloride (96-108) mmol/L Carbon Dioxide (22-29) mmol/L Anion Gap (12-20) BUN (9-16) mg/dL Creatinine (0.5-1.4) mg/dL Estim Creat Clear Calc Estimated GFR Random Glucose (60-115) mg/dL Lactic Acid 3.4 H* (0.5-2.0) mmol/L Calcium (8.4-10.2) mg/dL Magnesium (1.6-2.6) mg/dL Total Bilirubin (0.0-1.0) mg/dL Direct Bilirubin (0.0-0.5) mg/dL AST (5-37) U/L ALT (0-40) U/L Alkaline Phosphatase (39-117) U/L Total Protein (6.5-8.0) g/dL Albumin (3.5-5.0) g/dL Lipase 438 H (8-78) U/L Urine Color Urine Appearance Urine pH (5.0-8.0) Ur Specific [place] (1.005-1.025) Urine Protein (NEG-TRACE) MG/DL Urine Glucose (UA) (NEG) MG/DL Urine Ketones (NEG) MG/DL Urine Blood (NEG) Urine Nitrite (NEG) Ur Leukocyte Esterase (NEG) Urine RBC (0) /HPF Urine WBC (0-4) /HPF Ur Squamous Epith Cells /LPF Urine Bacteria /LPF Hyaline Casts /LPF COVID-19 (DUNG) (Negative) COVID-19 Clin Com 04/19/20 Range/Units 08:55 WBC (4.8-10.8) X10*3/uL RBC (4.60-5.80) X10*6/uL Hgb (14.0-18.0) g/dl Hct (42-52) % MCV (80-98) fL MCH (27.0-33.0) pg MCHC (31.0-36.0) g/dl RDW (11.0-16.0) % Plt Count (160-400) X10*3/uL MPV (9.4-12.4) fL Immature Gran % (Auto) (0.0-0.4) % Neut % (Auto) (45-73) % Lymph % (Auto) (20-40) % [place] % (Auto) (2-11) % Eos % (Auto) (0-4) % Baso % (Auto) (0-2) % Lymph # (Auto) (1.2-4.9) X10*3/uL [place] # (Auto) (0.1-1.2) X10*3/uL Eos # (Auto) (0.0-0.4) X10*3/uL Baso # (Auto) (0.0-0.2) X10*3/uL Abs Immat Gran (auto) (0.00-0.03) X10*3/uL Absolute Neuts (auto) (2.0-8.3) X10*3/uL Absolute Nucleated RBC (0.0-0.012) X10*3/uL Nucleated RBC % (auto) (0.0-0.2) /100WBC Smear Tech's Comments PT (10.8-13.0) SEC INR (0.9-1.1) APTT (24.1-38.0) SEC Sodium (135-145) mmol/L Potassium (3.3-5.1) mmol/L Chloride (96-108) mmol/L Carbon Dioxide (22-29) mmol/L Anion Gap (12-20) BUN (9-16) mg/dL Creatinine (0.5-1.4) mg/dL Estim Creat Clear Calc Estimated GFR Random Glucose (60-115) mg/dL Lactic Acid (0.5-2.0) mmol/L Calcium (8.4-10.2) mg/dL Magnesium (1.6-2.6) mg/dL Total Bilirubin (0.0-1.0) mg/dL Direct Bilirubin (0.0-0.5) mg/dL AST (5-37) U/L ALT (0-40) U/L Alkaline Phosphatase (39-117) U/L Total Protein (6.5-8.0) g/dL Albumin (3.5-5.0) g/dL Lipase (8-78) U/L Urine Color YELLOW Urine Appearance HAZY Urine pH 5.5 (5.0-8.0) Ur Specific [place] >= 1.030 H (1.005-1.025) Urine Protein 1+ H (NEG-TRACE) MG/DL Urine Glucose (UA) NEG (NEG) MG/DL Urine Ketones NEG (NEG) MG/DL Urine Blood NEG (NEG) Urine Nitrite NEG (NEG) Ur Leukocyte Esterase NEG (NEG) Urine RBC 0-2 (0) /HPF Urine WBC 0-2 (0-4) /HPF Ur Squamous Epith Cells TRACE /LPF Urine Bacteria NONE /LPF Hyaline Casts 15-29 /LPF COVID-19 (DUNG) (Negative) COVID-19 Clin Com ECG Data Attestation: I personally reviewed and interpreted this ECG as follows: ECG interpretation date: 04/19/20 ECG interpretation time: 08:10 Interpretation: Rate: 118 Rhythm: sinus tach [place]: normal Normal P waves. short [place]. Normal QRS complex. poor R wave progression ST T wave : normal, no BRE qTC: prolonged prior studies: The study has been interpreted contemporaneously by me. . Discharge Plan Discharge Clinical Impression: Nausea & vomiting, Abdominal pain, Anasarca, Lung cancer, Weakness, Acute pericardial effusion, Leukocytosis, Acidosis, lactic Patient Disposition: Admitted As Inpatient Prescriptions: No Action ferrous sulfate 325 mg (65 mg iron) Tablet 325 mg PO BID RF: 0 multivitamin Tablet 1 tab PO DAILY RF: 0 gabapentin 600 mg Tablet 600 mg PO TID RF: 0 albuterol sulfate [ProAir HFA] 90 mcg/actuation Hfa Aerosol Inhaler 1 inh INHALATION QID PRN (Reason: Shortness Of Breath Or Wheezing) RF: 0 Spiriva with HandiHaler 18 mcg Capsule, W/Inhalation Device 1 cap INHALATION DAILY RF: 0 gabapentin 300 mg Tablet 300 mg PO TID RF: 0 omeprazole 20 mg Tablet,Delayed Release (Dr/Ec) 20 mg PO BID RF: 0 ondansetron HCl [Zofran] 4 mg tablet 8 mg PO Q8H PRN (Reason: Nausea) RF: 0 oxycodone 5 mg tablet 5 mg PO Q6H PRN (Reason: Foot pain) Qty: 14 RF: 0 fluticasone propionate 110 mcg/actuation Hfa Aerosol Inhaler 1 puff INHALATION BID RF: 0 aspirin [Adult Low Dose Aspirin] 81 mg tablet,delayed release (DR/EC) 81 mg PO DAILY RF: 0 loratadine 10 mg capsule 10 mg PO DAILY RF: 0 folic acid 1 mg tablet 1 mg PO DAILY RF: 0 vitamin B complex [B Complex-Vitamin B12] Tablet 1 tab PO DAILY RF: 0 thiamine HCl (vitamin B1) 100 mg tablet 100 mg PO DAILY RF: 0 venlafaxine 37.5 mg capsule,extended release 24hr 37.5 mg PO DAILY RF: 0 tamsulosin 0.4 mg capsule 0.4 mg PO DAILY RF: 0 quetiapine 50 mg tablet 50 mg PO BID RF: 0 magnesium gluconate [Mag-G] 27 mg magnesium (500 mg) tablet 27 mg PO DAILY RF: 0 isosorbide mononitrate 60 mg tablet extended release 24 hr 60 mg PO DAILY RF: 0 famotidine 20 mg tablet 20 mg PO DAILY RF: 0 clopidogrel 75 mg tablet 75 mg PO DAILY RF: 0 atorvastatin 40 mg tablet 40 mg PO BEDTIME RF: 0 amoxicillin-pot clavulanate 875-125 mg tablet 1 tab PO BID Qty: 20 RF: 0 PMFSH Past Medical History Attestation statement: The following information was validated with the patient. Medical History Amputation of one or more toes BPH (benign prostatic hyperplasia) Bronchitis, chronic CAD (coronary artery disease) COPD (chronic obstructive pulmonary disease) Depression Diabetes type 2 with atherosclerosis of arteries of extremities GERD (gastroesophageal reflux disease) Hyperlipidemia Hypertension Lung cancer Non-small cell lung cancer with metastasis SHANIQUA (obstructive sleep apnea) Osteomyelitis of third toe of right foot PAD (peripheral artery disease) Peripheral neuropathy Post-op bleeding PVD (peripheral vascular disease) Smoker Tobacco consumption Surgical History History of angioplasty History of bronchoscopy History of cholecystectomy History of hernia repair History of removal of cyst History of tonsillectomy Osteomyelitis of fifth toe of right foot Osteomyelitis of fourth toe of right foot Family History Family History Father History of lung cancer Mother History of hypertension Family history of Alzheimer's disease Maternal Uncle History of colon cancer Social History Social History Household Members: Spouse Housing: Apartment Alcohol intake: never Smoking Status: Current every day smoker Tobacco Type: Cigarette Packs Per Day: 2 Cigarettes Per Day: 40.0 Years Smoked: 45 years Substance Use Type: Marijuana Advance Directives Date on File: 04/14/09 service: No Current occupational status: unemployed
[2020-04-19] MEDS: Morphine Sulfate 4 MG/ML CARTRIDGE IVPUSH (08:22)
[2020-04-19] MEDS: ondansetron HCL 4 MG/2 ML VIAL IVPUSH (08:22)
[2020-04-19] MEDS: Magnesium Sulfate/H2O 2 GM/50 ML PIGGYBACK IV (08:23)
[2020-04-19] MEDS: 0.9 % Sodium Chloride 500 ML IV ×2 (08:24→09:50)
[2020-04-19 08:25] LABS: Basophils Percent Auto 0.2 % (0-2); Hematocrit 31.4 % (42-52); Hemoglobin 10.3 g/dl (14.0-18.0); Imm Gran Abs Auto 0.28 X10*3/uL (0.00-0.03); Imm Gran Pct Auto 1.1 % (0.0-0.4); Lymphocytes Absolute Auto 1.2 X10*3/uL (1.2-4.9); Lymphocytes Percent Auto 4.6 % (20-40); MANUAL DIFF FLAG SCAN; Mean Corpuscular HGB Conc 32.8 g/dl (31.0-36.0); Mean Corpuscular Hemoglobin 29.3 pg (27.0-33.0); Mean Corpuscular Volume 89.5 fL (80-98); Mean Platelet Volume 9.2 fL (9.4-12.4); Monocytes Absolute Auto 1.8 X10*3/uL (0.1-1.2); Neutrophils Absolute Auto 22.7 X10*3/uL (2.0-8.3); Neutrophils Percent Auto 87.1 % (45-73); Red Blood Count 3.51 X10*6/uL (4.60-5.80); Red Cell Distribution Width 16.5 % (11.0-16.0); SCAN SMEAR FLAG 1
[2020-04-19 08:31] LABS: INTERNATIONAL NORM RATIO 1.4 (0.9-1.1); Platelet Count 881 X10*3/uL (160-400); Prothrombin Time 16.6 SEC (10.8-13.0)
[2020-04-19 08:33] LABS: COVID-19 Test Negative (Negative)
[2020-04-19 08:34] LABS: Partial Thromboplastin Time 44.7 SEC (24.1-38.0)
[2020-04-19] MEDS: Albuterol Sulfate (0.083%) 2.5 MG/3 ML VIAL.NEB INHALE (08:35)
[2020-04-19 08:42] LABS: Lactic Acid 3.4 mmol/L (0.5-2.0)
[2020-04-19 08:48] LABS: Alanine Aminotransferase 18 U/L (0-40); Alkaline Phosphatase 431 U/L (39-117); Aspartate Amino Transferase 16 U/L (5-37); Bilirubin Direct 0.4 mg/dL (0.0-0.5); Bilirubin Total 0.7 mg/dL (0.0-1.0); Blood Urea Nitrogen 21 mg/dL (9-16); Calcium 8.3 mg/dL (8.4-10.2); Creatinine Clr Calc Pharmacy 68.1; Estimated Glomerular Filt Rate > 60; Glucose Random 178 mg/dL (60-115); Magnesium 2.5 mg/dL (1.6-2.6); Total Protein 7.1 g/dL (6.5-8.0)
[2020-04-19 08:52] LABS: SLIDE REVIEW VERIFIED
[2020-04-19 08:57] LABS: Anion Gap 19 (12-20); Carbon Dioxide 22 mmol/L (22-29); Chloride 91 mmol/L (96-108); Potassium 4.8 mmol/L (3.3-5.1); Sodium 127 mmol/L (135-145)
[2020-04-19 09:01] LABS: Glucose Urine UA NEG (NEG); Leukocyte Esterase Urine NEG (NEG); Nitrite Urine NEG (NEG); PH 5.5 (5.0-8.0); Specific Gravity - Urine >= 1.030 (1.005-1.025); Urine Blood NEG (NEG); Urine Ketones NEG (NEG); Urine Protein 1+ MG/DL (NEG-TRACE)
[2020-04-19 09:02] LABS: Appearance Urine HAZY; Color Urine YELLOW
[2020-04-19 09:04] LABS: Lipase 438 U/L (8-78)
[2020-04-19 09:18] LABS: RBC Urine 0-2 /HPF (0); Squamous Epithelial Cell Urine TRACE /LPF; WBC Urine 0-2 /HPF (0-4)
[2020-04-19] MEDS: Piperacillin Sodium/Tazobactam 3.375 GM in 0.9 % Sodium Chloride 50 ML IV (09:51)
[2020-04-19 10:17] LABS: Reflex Lactate? Lactic Acid Added
[2020-04-19] MEDS: iohexoL 350 MG/ML 100 ML INFUS..BTL IV (10:20)
--- NOTE | 2020-04-19 12:26 | P.HPHOSP_ITS ---
History of Present Illness Date of Service: 04/19/20 Chief Complaint: nausea vomiting poor po intake 59 year old male with advanced stage IV metastatic lung cancer presented with nausea vomiting and poor p.o. intake, Patient reported since he is having nausea and vomiting and not able to keep anything down, and Patient was not able to take any medication, in the ER found to have elevated wbcs , Patient was also reporting constipation and abdominal pain, CT abdomen done in the ER shows Mets to liver and spleen but no bowel obstruction, Patient denies fever chills or sick contacts, patient received fluid, patient follows Dr. Mann for stage IV lung cancer last chemotherapy was 2 weeks ago,EKG shows prolonged QTC Review of Systems Review of Systems: Constitutional : No Weight loss, No Fever, No Chills ENT/Mouth : No sore throat, No Rhinorrhea Eyes: No Swelling, No Redness Cardiovascular : Shortness of breath, mild edema, no chest pain Respiratory : No Cough, No Sputum, No Wheezing Gastrointestinal : Positive Nausea, Positive Vomiting, no Diarrhea, positive abdominal Pain, No Hematochezia, No Melena, pos constipation Genitourinary : No Dysuria, No Urinary Frequency, No Hematuria, No Urgency Musculoskeletal : No joint pain, No Myalgias, No Joint Swelling Skin : No Skin Lesions, No rash Neuro : pos Weakness, No Numbness, No Dizziness, No Headache Psych : No Anxiety/Panic, No Depression Heme/Lymph: No Bruising, No Lymphadenopathy Endocrine : No Polyuria, No Polydipsia All other systems reviewed and are negative. [facility] Medical History Amputation of one or more toes BPH (benign prostatic hyperplasia) Bronchitis, chronic CAD (coronary artery disease) COPD (chronic obstructive pulmonary disease) Depression Diabetes type 2 with atherosclerosis of arteries of extremities GERD (gastroesophageal reflux disease) Hyperlipidemia Hypertension Lung cancer Non-small cell lung cancer with metastasis SHANIQUA (obstructive sleep apnea) Osteomyelitis of third toe of right foot PAD (peripheral artery disease) Peripheral neuropathy Post-op bleeding PVD (peripheral vascular disease) Smoker Tobacco consumption Family History Father History of lung cancer Mother History of hypertension Family history of Alzheimer's disease Maternal Uncle History of colon cancer Surgical History History of angioplasty History of bronchoscopy History of cholecystectomy History of hernia repair History of removal of cyst History of tonsillectomy Osteomyelitis of fifth toe of right foot Osteomyelitis of fourth toe of right foot Social History Household Members: Spouse Housing: Apartment Do you presently have visiting nurse or other home services: Yes Alcohol intake: never Smoking Status: Current every day smoker Tobacco Type: Cigarette Packs Per Day: 2 Years Smoked: 45 years Smoked in Last 30 Days: Yes Patient Interested in Nicotine Replacement: Yes Use of substances other than those prescribed or required for medical reasons: Yes Substance Use Type: Marijuana Substance Use Frequency: Daily Last Used Substance: Days (ago) Currently Displaying Signs/Symptoms of Drug Intoxication Withdrawal: No Have you been hit, kicked, punched, or otherwise hurt by someone within the past year? If so, by whom?: No Do you feel safe in your current relationship?: Yes Is there a partner from a previous relationship who is making you feel unsafe now?: No Are you made to feel afraid or neglected: No Advance Directives: Yes Advance Directives on File: Yes Advance Directives Date on File: 04/14/09 Do you have thoughts of harming others: None Do you have a plan to hurt others: No Plan Recently lost weight without trying: Unsure service: No Current occupational status: unemployed Meds Allergies Allergy/AdvReac Type Severity Reaction Status Date / Time lisinopril [LISINOPRIL] Allergy Intermediate BLEEDING Verified 01/23/20 15:44 IN MOUTH,SWELLING Josh inhibitors Allergy Unknown Unknown Uncoded 12/18/19 11:48 Home Medications Medication Instructions Recorded Confirmed Type aspirin 81 mg tablet,delayed 81 mg PO DAILY 12/18/19 04/19/20 History release atorvastatin 40 mg tablet 40 mg PO BEDTIME 12/18/19 04/19/20 History clopidogrel 75 mg tablet 75 mg PO DAILY 12/18/19 04/19/20 History famotidine 20 mg tablet 20 mg PO DAILY 12/18/19 04/19/20 History folic acid 1 mg tablet 1 mg PO DAILY 12/18/19 04/19/20 History isosorbide mononitrate 60 mg 60 mg PO DAILY 12/18/19 04/19/20 History tablet,extended release 24 hr loratadine 10 mg capsule 10 mg PO DAILY 12/18/19 04/19/20 History magnesium gluconate 27 mg 27 mg PO DAILY tab 12/18/19 04/19/20 History magnesium (500 mg) tablet quetiapine 50 mg tablet 50 mg PO BID 12/18/19 04/19/20 History tamsulosin 0.4 mg capsule 0.4 mg PO DAILY 12/18/19 04/19/20 History thiamine HCl (vitamin B1) 100 mg 100 mg PO DAILY 12/18/19 04/19/20 History tablet venlafaxine 37.5 mg 37.5 mg PO DAILY 12/18/19 04/19/20 History capsule,extended release 24 hr vitamin B complex 1 tab PO DAILY 12/18/19 04/19/20 History Spiriva with HandiHaler 1 cap INHALATION DAILY 01/08/20 04/19/20 History albuterol sulfate [ProAir HFA] 1 inh INHALATION QID PRN 01/08/20 04/19/20 History ferrous sulfate 325 mg PO BID 01/08/20 04/19/20 History gabapentin 300 mg PO TID 01/08/20 04/19/20 History gabapentin 600 mg PO TID 01/08/20 04/19/20 History multivitamin 1 tab PO DAILY 01/08/20 04/19/20 History omeprazole 20 mg PO BID 01/08/20 04/19/20 History ondansetron HCl [Zofran] 8 mg PO Q8H PRN 01/08/20 04/15/20 History fluticasone propionate 1 puff INHALATION BID 02/17/20 04/19/20 History Physical Exam Vital Signs and Narrative: Vital Signs: Last Vital Signs Temp 97.6 F 04/19/20 08:40 Pulse 112 H 04/19/20 11:31 Resp 04/19/20 11:31 BP 128/93 H 04/19/20 11:31 Pulse Ox 97 04/19/20 11:31 Body Mass Index 25.8 Const: General: no acute distress Orientation/consciousness: patient oriented x3 Eyes: General: appearance normal, both eyes and all related structures Neck: Yes normal visual inspection Resp: Effort & Inspection: normal respiratory effort and able to speak in complete sentences Cardio: Jugular venous distension: no JVD Heart sounds: S1 normal heart sound present GI: Inspection: Yes normal to inspection Auscultation: normal bowel sounds Skin: General skin exam: no rashes or lesions noted Neuro: General: patient oriented x3 Results Labs CBC and Chem 7: 04/21/20 10:46 04/21/20 10:46 Labs: Laboratory Results - last 24 hr 04/19/20 04/19/20 04/19/20 08:11 08:11 08:11 MCV 89.5 MCH 29.3 MCHC 32.8 RDW 16.5 H Plt Count 881 H D MPV 9.2 L Immature Gran % (Auto) 1.1 H Neut % (Auto) 87.1 H Lymph % (Auto) 4.6 L [place] % (Auto) 7.0 Eos % (Auto) 0.0 Baso % (Auto) 0.2 Lymph # (Auto) 1.2 [place] # (Auto) 1.8 H Eos # (Auto) 0.0 Baso # (Auto) 0.0 Abs Immat Gran (auto) 0.28 H Absolute Neuts (auto) 22.7 H Absolute Nucleated RBC 0.000 Nucleated RBC % (auto) 0.0 Smear Tech's Comments VERIFIED PT INR APTT Anion Gap 19 Estim Creat Clear Calc 68.1 Estimated GFR > 60 Random Glucose 178 H Lactic Acid Calcium 8.3 L Magnesium 2.5 Total Bilirubin 0.7 Direct Bilirubin 0.4 AST 16 ALT 18 Alkaline Phosphatase 431 H D Total Protein 7.1 Albumin 4.0 Lipase Urine Color Urine Appearance Urine pH Ur Specific Reading Urine Protein Urine Glucose (UA) Urine Ketones Urine Blood Urine Nitrite Ur Leukocyte Esterase Urine RBC Urine WBC Ur Squamous Epith Cells Urine Bacteria Hyaline Casts COVID-19 (DUNG) Negative COVID-19 Clin Com See Note 04/19/20 04/19/20 04/19/20 08:11 08:11 08:11 MCV MCH MCHC RDW Plt Count MPV Immature Gran % (Auto) Neut % (Auto) Lymph % (Auto) [place] % (Auto) Eos % (Auto) Baso % (Auto) Lymph # (Auto) [place] # (Auto) Eos # (Auto) Baso # (Auto) Abs Immat Gran (auto) Absolute Neuts (auto) Absolute Nucleated RBC Nucleated RBC % (auto) Smear Tech's Comments PT 16.6 H INR 1.4 H APTT 44.7 H Anion Gap Estim Creat Clear Calc Estimated GFR Random Glucose Lactic Acid 3.4 H* Calcium Magnesium Total Bilirubin Direct Bilirubin AST ALT Alkaline Phosphatase Total Protein Albumin Lipase 438 H Urine Color Urine Appearance Urine pH Ur Specific Reading Urine Protein Urine Glucose (UA) Urine Ketones Urine Blood Urine Nitrite Ur Leukocyte Esterase Urine RBC Urine WBC Ur Squamous Epith Cells Urine Bacteria Hyaline Casts COVID-19 (DUNG) COVID-19 Clin Com 04/19/20 08:55 MCV MCH MCHC RDW Plt Count MPV Immature Gran % (Auto) Neut % (Auto) Lymph % (Auto) [place] % (Auto) Eos % (Auto) Baso % (Auto) Lymph # (Auto) [place] # (Auto) Eos # (Auto) Baso # (Auto) Abs Immat Gran (auto) Absolute Neuts (auto) Absolute Nucleated RBC Nucleated RBC % (auto) Smear Tech's Comments PT INR APTT Anion Gap Estim Creat Clear Calc Estimated GFR Random Glucose Lactic Acid Calcium Magnesium Total Bilirubin Direct Bilirubin AST ALT Alkaline Phosphatase Total Protein Albumin Lipase Urine Color YELLOW Urine Appearance HAZY Urine pH 5.5 Ur Specific Reading >= 1.030 H Urine Protein 1+ H Urine Glucose (UA) NEG Urine Ketones NEG Urine Blood NEG Urine Nitrite NEG Ur Leukocyte Esterase NEG Urine RBC 0-2 Urine WBC 0-2 Ur Squamous Epith Cells TRACE Urine Bacteria NONE Hyaline Casts 15-29 COVID-19 (DUNG) COVID-19 Clin Com Imaging Radiologist's Impressions: Impressions Abdomen/Pelvis CT 04/19/20 07:34 IMPRESSION: 1. Evidence for fluid overload including a small pericardial effusion, small left pleural effusion, small to moderate ascites, and mild anasarca. 2. 0.8 cm nodule at the left lung base, similar to the prior study. 3. The liver surface appears mildly nodular. Recommend correlation with any history of cirrhosis and liver enzymes. 4. Redemonstration of multiple calcifications within the pancreas. Unchanged mild dilatation of the pancreatic duct. Redemonstration of 2 cystic lesions within the pancreas. Consider follow-up MRI for further evaluation. 5. Mildly complex cyst in the inferior pole of the left kidney and simple appearing cyst of the right kidney are again demonstrated. These can also be further evaluated with MRI. 6. Nonspecific periaortic lymph nodes that are mildly enlarged, measuring up to 1.2 cm in short axis. 7. Colonic diverticulosis without evidence of diverticulitis. 8. Redemonstration of fractures of the right superior and inferior pubic rami without significant healing. Chest X-Ray 04/19/20 07:35 IMPRESSION: Round 2 cm nodule projecting over the right upper lobe correlate with the nodule seen on the CT scan unchanged allowing variation in technique.. Improving bibasilar atelectasis. Blunting of left costophrenic angle suggesting small effusion. Assessment and Plan (1) Nausea & vomiting: Qualifiers: Vomiting Intractability: non-intractable Vomiting type: unspecified Qualified Code(s): R11.2 - Nausea with vomiting, unspecified Status: Acute (2) Abdominal pain: Qualifiers: Abdominal location: left lower quadrant Qualified Code(s): R10.32 - Left lower quadrant pain Status: Acute (3) Anasarca: Status: Acute (4) Leukocytosis: Qualifiers: Leukocytosis type: unspecified Qualified Code(s): D72.829 - Elevated white blood cell count, unspecified Status: Acute (5) Acidosis, lactic: Status: Acute 59-year-old male with advanced stage IV lung cancer presented with nausea vomiting and poor p.o. intake, CT abdomen did not show any obstruction, found to have prolonged QTC of 633 Nausea vomiting not able to tolerate p.o. likely secondary to advanced cancer and chemotherapy Received IV fluid Continue supportive management Will hold Zofran given prolonged QTC Will start on Phenergan Monitor QTC closely Prolonged QTC EKG on admission shows QTC of 600 Hold Seroquel and venlafaxine Monitor on telemetry Magnesium 2.6 and potassium was 4.8 Will recheck EKG tomorrow Lactic acidosis likely secondary to nebulizer treatment not from sepsis Abdominal pain likely secondary to metastatic cancer and constipation mildly elevated lipase, CT abdomen shows cystic lesions in the pancreas but no active pancreatitis Continue supportive management Will start on bowel regimen History of PAD Continue aspirin and Plavix h/o CAD Continue aspirin Lipitor Imdur COPD not in exacerbation Will give DuoNeb as needed Stage IV lung cancer Follows Dr. Mann as outpatient Will get Oncology consult DVT prophylaxis Lovenox Patient wishes to be full code
[2020-04-19 12:43] LABS: ~Lactic Acid-LAB USE ONLY 3.2 mmol/L (0.5-2.0)
[2020-04-19 12:47] LABS: B Type Natriuretic Peptide 247 pg/mL (<100); Troponin-I High Sensitivity 19.6 ng/L (<3.5-35.0)
[2020-04-19 14:15] LABS: Reflex Lactate? 2 Y
[2020-04-19] MEDS: polyethylene glycoL 3350 17 GM POWD.PACK PO (17:26)
[2020-04-19] MEDS: Enoxaparin Sodium 40 MG/0.4 ML SYRINGE SUBCUT (17:26)
[2020-04-19] MEDS: oxyCODONE HCl Immed Release 5 MG TABLET PO (18:06)
[2020-04-19] MEDS: 0.9 % Sodium Chloride Flush 3 ML SYRINGE IVFLUSH (18:13)
[2020-04-19] MEDS: Fluticasone Propionate 100 MCG BLST.W.DEV 1 PUFF INHALE (21:42)
[2020-04-19] MEDS: Ferrous Sulfate 324 MG TABLET.DR PO (21:42)
[2020-04-19] MEDS: Docusate Sodium 100 MG CAPSULE PO (21:42)
[2020-04-19] MEDS: Atorvastatin Calcium 40 MG TABLET PO (21:42)
--- NOTE | 2020-04-19 22:27 | PC.NURSE ---
medication was still pending 12 hours later, charted as not given. unknown why lasix was not administered by prior rn.
--- NOTE | 2020-04-19 22:38 | PC.NURSE ---
pt transferred to a hospital bed for comfort. pt was still complaining of nausea and pain. spoke with hospitalist, who does not want to give pt any additional zofran due to prolonged QTC. hospitalist will put in order for ativan, if absolutely necessary.
[2020-04-20] VITALS (10 sets, daily range): BP systolic 104–138; BP diastolic 71–93; PULSE 108–115; RESP 18–24; TEMP 36.4–36.6; O2SAT 89–94
--- NOTE | 2020-04-20 | ECG_ITS ---
Test Reason : ABNORMAL EKG Blood Pressure : / mmHG Vent. Rate : 111 BPM Atrial Rate : 111 BPM P-R Int : 152 ms QRS Dur : 086 ms QT Int : 348 ms P-R-T Axes : 060 028 006 degrees QTc Int : 473 ms Sinus tachycardia Septal infarct (cited on or before 27-MAR-2020) Abnormal ECG When compared with ECG of 19-APR-2020 08:06, No significant changes seen Referred By: Angel Shukla Electronically Signed By:MAINOR CRAFT
--- NOTE | 2020-04-20 | ECG_ITS ---
Test Reason : CHEST PAIN Blood Pressure : / mmHG Vent. Rate : 111 BPM Atrial Rate : 111 BPM P-R Int : 152 ms QRS Dur : 086 ms QT Int : 350 ms P-R-T Axes : 049 014 -60 degrees QTc Int : 476 ms Sinus tachycardia Septal infarct (cited on or before 27-MAR-2020) Abnormal ECG When compared with ECG of 20-APR-2020 10:16, Nonspecific T wave abnormality, improved in Inferior leads Referred By: Angel Shukla Electronically Signed By:RICHAR MELVIN MD
[2020-04-20] MEDS: oxyCODONE HCl Immed Release 5 MG TABLET PO ×2 (00:57→20:46)
[2020-04-20] MEDS: 0.9 % Sodium Chloride Flush 3 ML SYRINGE IVFLUSH ×3 (01:11→17:12)
--- NOTE | 2020-04-20 02:41 | PC.NURSE ---
PT'S KASIE CALLED FOR UPDATE. [phone]
--- NOTE | 2020-04-20 06:25 | PC.NURSE ---
Pt c/o nausea and pain. Dr More zarco texted to be made aware of pt's complaints, as well as reminder that pt has prolonged QT. Pt with order for phenergan PRN. This RN asked provider for alternate anti-nausea. Provider placed order for IV dilaudid. Will medicate for pain per MAY.
[2020-04-20] MEDS: HYDROmorphone HCl 0.5 MG/0.5 ML SYRINGE 0.25 MG IVPUSH (06:31)
--- NOTE | 2020-04-20 09:55 | MHC.CM.PN ---
Attempted to meet with patient in regards to discharge planning. Patient is currently sleeping. Attempted to speak with patient's /HCP, Chloe via telephone at [phone]. Left message requesting return telephone call. Will attempt to meet patient again. Continue to monitor for d/c needs.
--- NOTE | 2020-04-20 10:03 | MHC.CM.PN ---
Received telephone call from patient's , Chloe. Patient lives with , ambulates with a cane, receives palliative chemo from Dr Mann and is active with [facility]. Patient follows with Dr Londono for his chronic foot wound. PCP verified. HCP verified to be on file. Patient typically uses [facility] shuttle for transportation to appointments. Anticipate patient will return home with resumption of services via chair van. Continue to monitor for d/c needs.
[2020-04-20] MEDS: Fluticasone Propionate 100 MCG BLST.W.DEV 1 PUFF INHALE ×2 (11:40→20:19)
[2020-04-20] MEDS: Lactulose 20 GM/30 ML SOLUTION 30 GM PO (11:47)
[2020-04-20] MEDS: Ferrous Sulfate 324 MG TABLET.DR PO ×2 (11:48→20:46)
[2020-04-20] MEDS: Loratadine 10 MG TABLET PO (11:48)
[2020-04-20] MEDS: Isosorbide Mononitrate 60 MG TAB.ER.24H PO (11:48)
[2020-04-20] MEDS: Tamsulosin HCL 0.4 MG CAPSULE PO (11:50)
[2020-04-20] MEDS: Folic Acid 1 MG TABLET PO (11:50)
[2020-04-20] MEDS: Thiamine HCL 100 MG TABLET PO (11:50)
[2020-04-20] MEDS: Aspirin Enteric Coated 81 MG TABLET.DR PO (11:51)
[2020-04-20] MEDS: Clopidogrel Bisulfate 75 MG TABLET PO (11:51)
[2020-04-20] MEDS: polyethylene glycoL 3350 17 GM POWD.PACK PO (12:45)
--- NOTE | 2020-04-20 12:59 | PC.NURSE ---
PT STATES HE IS HAVING INCREASED CHEST PAIN, WILL DO EKG AND SEND HIM TO TELE, PRE DR GARCIA
--- NOTE | 2020-04-20 13:19 | P.EN_ITS ---
This is a 59-year-old male with metastatic lung cancer on chemo immunotherapy presenting with nausea, emesis, constipation and abdominal pain. His last dose of chemotherapy was on April 03. He has been on treatment for 4-6 months and generally tolerated chemotherapy quite well. New onset emesis and abdominal pain along with elevated lipase is concerning for acute pancreatitis which could be related to side effect of immunotherapy. He is also complaining of chest pain, EKG shows QT prolongation. He has been on antiemetics which can cause QT prolongation. 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 I recommend both GI and Cardiology consultation. Full consult to follow.
[2020-04-20] MEDS: Morphine Sulfate 2 MG/ML CARTRIDGE IVPUSH (13:29)
[2020-04-20 13:39] LABS: Basophils Percent Auto 0.1 % (0-2); Hemoglobin 9.3 g/dl (14.0-18.0); Imm Gran Abs Auto 0.37 X10*3/uL (0.00-0.03); Imm Gran Pct Auto 1.3 % (0.0-0.4); Lymphocytes Absolute Auto 1.3 X10*3/uL (1.2-4.9); Lymphocytes Percent Auto 4.6 % (20-40); MANUAL DIFF FLAG SCAN; Mean Corpuscular HGB Conc 32.1 g/dl (31.0-36.0); Mean Corpuscular Volume 90.3 fL (80-98); Mean Platelet Volume 9.2 fL (9.4-12.4); Monocytes Absolute Auto 2.3 X10*3/uL (0.1-1.2); Monocytes Percent Auto 8.3 % (2-11); Neutrophils Percent Auto 85.7 % (45-73); Platelet Count 852 X10*3/uL (160-400); Red Blood Count 3.21 X10*6/uL (4.60-5.80); Red Cell Distribution Width 16.8 % (11.0-16.0); SCAN SMEAR FLAG 1
[2020-04-20 13:57] LABS: Anion Gap 14 (12-20); Blood Urea Nitrogen 32 mg/dL (9-16); Carbon Dioxide 19 mmol/L (22-29); Chloride 102 mmol/L (96-108); Creatinine Clr Calc Pharmacy 93.2; Estimated Glomerular Filt Rate > 60; Glucose Random 115 mg/dL (60-115); Potassium 4.3 mmol/L (3.3-5.1); Sodium 131 mmol/L (135-145)
[2020-04-20 14:02] LABS: Troponin-I High Sensitivity 22.6 ng/L (<3.5-35.0)
[2020-04-20 14:08] LABS: Calcium 6.5 mg/dL (8.4-10.2)
[2020-04-20 14:26] LABS: SLIDE REVIEW VERIFIED
--- NOTE | 2020-04-20 14:42 | PM.GICN ---
History of Present Illness Data of Consult Service Date: 04/20/20 Requesting physician: Angel Shukla Primary Care Provider: Wendy Liu MD HPI Reason for consult: pancreatitis 59-year-old male presented to [facility] on 04/19/2020 with abdominal pain: 59 yo male with end stage lung cancer - terminal he is on palliative chemo per him, comes in with 5 days of constipation, n/v and worsening LLQ pain - has mets to bone, throat, no flatus MD elicited complaint: abdominal pain. Pertinent past history: constipation and other (cancer) Onset (ago): day(s) (5), Pain Consistency: constant, Location: LLQ Severity: moderate, Quality: stabbing and aching, Radiation: none Migration to: no migration, Exacerbating factors: movement, Relieving factors: nothing Associated symptoms: nausea, vomiting, constipation and anorexia Lipase elevated at 438 - improved to 298 today, Lactic acid of 3.0 He has been on palliative chemotherapy with carboplatin, pemetrexed and pembrolizumab on 07/17/2019. And denosumab for bone mets . Patient denies past history of pancreatitis and complains of constant generalized abdominal pain worse with movement. Complains of nausea and vomiting with decreased appetite for the past few days and p.o. intake has been poor. He denies having any bowel movement for the past 4 days. Vomiting has resolved since his hospitalization and nausea has improved. He denies heartburn or dysphagia. Patient admits to heavy alcohol use (upto a quart of hard liquor daily) and quit drinking 2 years ago. He admits to smoking 2 pack per day for the past 45 years and has no plans for quitting. IMAGING STUDIES: 04/19/[address] SCAN SHOWED: 1. Evidence for fluid overload including a small pericardial effusion, small left pleural effusion, small to moderate ascites, and mild anasarca. 2. 0.8 cm nodule at the left lung base, similar to the prior study. 3. The liver surface appears mildly nodular. Recommend correlation with any history of cirrhosis and liver enzymes. 4. Redemonstration of multiple calcifications within the pancreas. Unchanged mild dilatation of the pancreatic duct. Redemonstration of 2 cystic lesions within the pancreas. Consider follow-up MRI for further evaluation. 5. Mildly complex cyst in the inferior pole of the left kidney and simple appearing cyst of the right kidney are again demonstrated. These can also be further evaluated with MRI. 6. Nonspecific periaortic lymph nodes that are mildly enlarged, measuring up to 1.2 cm in short axis. 7. Colonic diverticulosis without evidence of diverticulitis. 8. Redemonstration of fractures of the right superior and inferior pubic rami without significant healing. Review of Systems Constitutional: Constitutional: Reports fatigue, Denies fever(s), Denies headache(s) and Denies weight loss Eyes: Eyes: Denies eye discharge and Denies irritation ENT: Reports Normal hearing present, Denies dysphagia, Denies dizziness and Denies headache(s) Cardiovascular: Cardiovascular: Denies chest pain, Denies leg edema and Denies dyspnea on exertion Respiratory: Respiratory: Denies cough and Denies dyspnea on exertion Gastrointestinal: Gastrointestinal: Reports abdominal pain, Denies change in bowel habits, Reports constipation, Denies dysphagia, Denies heartburn, Reports nausea and Reports vomiting Genitourinary: Genitourinary: Denies dysuria Musculoskeletal: Musculoskeletal: Denies back pain and Denies arthralgias Integumentary/Breasts: Skin/Breast: Denies pruritus, Denies rash and Denies jaundice Neurologic: Reports Normal hearing present, Denies Abnormal speech present, Denies dizziness, Denies headache(s) and Denies seizure-like activity Psychiatric: Psychiatric: Denies anxiety, Denies depression and Denies panic attacks Endocrine: Endocrine: Denies cold intolerance, Reports fatigue, Denies flushing and Denies heat intolerance PMFSH Past Medical History Medical History Amputation of one or more toes BPH (benign prostatic hyperplasia) Bronchitis, chronic CAD (coronary artery disease) COPD (chronic obstructive pulmonary disease) Depression Diabetes type 2 with atherosclerosis of arteries of extremities GERD (gastroesophageal reflux disease) Hyperlipidemia Hypertension Lung cancer Non-small cell lung cancer with metastasis SHANIQUA (obstructive sleep apnea) Osteomyelitis of third toe of right foot PAD (peripheral artery disease) Peripheral neuropathy Post-op bleeding PVD (peripheral vascular disease) Smoker Tobacco consumption Family History Family History Father History of lung cancer Mother History of hypertension Family history of Alzheimer's disease Maternal Uncle History of colon cancer Surgical History Surgical History History of angioplasty History of bronchoscopy History of cholecystectomy History of hernia repair History of removal of cyst History of tonsillectomy Osteomyelitis of fifth toe of right foot Osteomyelitis of fourth toe of right foot Social History Social History Household Members: Spouse Housing: Apartment Alcohol intake: never Smoking Status: Current every day smoker Tobacco Type: Cigarette Packs Per Day: 2 Years Smoked: 45 years Substance Use Type: Marijuana Advance Directives Date on File: 04/14/09 service: No Current occupational status: unemployed Meds Allergies Allergy/AdvReac Type Severity Reaction Status Date / Time lisinopril [LISINOPRIL] Allergy Intermediate BLEEDING Verified 01/23/20 15:44 IN MOUTH,SWELLING Josh inhibitors Allergy Unknown Unknown Uncoded 12/18/19 11:48 Home Medications Medication Instructions Recorded Confirmed Type aspirin 81 mg tablet,delayed 81 mg PO DAILY 12/18/19 04/19/20 History release atorvastatin 40 mg tablet 40 mg PO BEDTIME 12/18/19 04/19/20 History clopidogrel 75 mg tablet 75 mg PO DAILY 12/18/19 04/19/20 History famotidine 20 mg tablet 20 mg PO DAILY 12/18/19 04/19/20 History folic acid 1 mg tablet 1 mg PO DAILY 12/18/19 04/19/20 History isosorbide mononitrate 60 mg 60 mg PO DAILY 12/18/19 04/19/20 History tablet,extended release 24 hr loratadine 10 mg capsule 10 mg PO DAILY 12/18/19 04/19/20 History magnesium gluconate 27 mg 27 mg PO DAILY tab 12/18/19 04/19/20 History magnesium (500 mg) tablet quetiapine 50 mg tablet 50 mg PO BID 12/18/19 04/19/20 History tamsulosin 0.4 mg capsule 0.4 mg PO DAILY 12/18/19 04/19/20 History thiamine HCl (vitamin B1) 100 mg 100 mg PO DAILY 12/18/19 04/19/20 History tablet venlafaxine 37.5 mg 37.5 mg PO DAILY 12/18/19 04/19/20 History capsule,extended release 24 hr vitamin B complex 1 tab PO DAILY 12/18/19 04/19/20 History Spiriva with HandiHaler 1 cap INHALATION DAILY 01/08/20 04/19/20 History albuterol sulfate [ProAir HFA] 1 inh INHALATION QID PRN 01/08/20 04/19/20 History ferrous sulfate 325 mg PO BID 01/08/20 04/19/20 History gabapentin 300 mg PO TID 01/08/20 04/19/20 History gabapentin 600 mg PO TID 01/08/20 04/19/20 History multivitamin 1 tab PO DAILY 01/08/20 04/19/20 History omeprazole 20 mg PO BID 01/08/20 04/19/20 History ondansetron HCl [Zofran] 8 mg PO Q8H PRN 01/08/20 04/15/20 History fluticasone propionate 1 puff INHALATION BID 02/17/20 04/19/20 History Physical Exam Vital Signs: Vital Signs: Last Vital Signs Temp 97.0 F 04/19/20 20:28 Pulse 115 H 04/20/20 13:05 Resp 24 H 04/20/20 13:05 BP 118/79 04/20/20 13:05 Pulse Ox 92 04/20/20 11:55 Body Mass Index 25.8 Const: General: no acute distress and ill appearing Nutritional Appearance: average body habitus Orientation/consciousness: patient oriented x3 Limitations: no limitations HENMT: Head: Yes normal to inspection Ears: hearing grossly normal bilaterally Mouth: Normal oral and palatal mucosa present Eyes: Sclerae: sclerae normal Pupils: Equal, round and reactive pupils present Neck: Neck: Yes normal visual inspection Chest: Chest palpation & inspection: normal inspection of the chest Resp: Effort & Inspection: normal respiratory effort Auscultation: clear to auscultation bilaterally and rales bilateral Cardio: Palpation: normal PMI Rate: regular rate Rhythm: regular rhythm Heart sounds: S1 normal heart sound present, S2 normal heart sound present and no murmurs GI: Palpation (GI): Soft to palpation, nontender and No hepatosplenomegaly present Auscultation: normal bowel sounds Rectal Exam - Male: Yes deferred Skin: General skin exam: no rashes or lesions noted Neuro: General: patient oriented x3, gait normal and moves all extremities Cranial nerves: Yes Equal, round and reactive pupils present and Yes Normal hearing present Speech: No Abnormal speech present Extrem: General: Yes edema (Rt LE > Lt) Psych: Appearance: grossly normal Mental Status: mental status grossly normal Results Labs CBC & Chem 7: 02/09/21 10:46 04/21/20 10:46 Labs: Short CBC 04/20/20 Range/Units 13:24 WBC 28.0 H (4.8-10.8) X10*3/uL Hgb 9.3 L (14.0-18.0) g/dl Hct 29.0 L (42-52) % Plt Count 852 H (160-400) X10*3/uL BMP 04/20/20 13:24 Sodium 131 L Potassium 4.3 Chloride 102 Carbon Dioxide 19 L BUN 32 H D Creatinine 0.87 Calcium 6.5 L D Microbiology Microbiology Results: Microbiology 04/19/20 09:24 Blood - Venous Blood Culture - Preliminary No growth after 24 hours. 04/19/20 08:11 Blood - Venous Blood Culture - Preliminary No growth after 24 hours. Assessment and Plan (1) Nausea & vomiting: Qualifiers: Vomiting Intractability: non-intractable Vomiting type: unspecified Qualified Code(s): R11.2 - Nausea with vomiting, unspecified Status: Acute (2) Abdominal pain: Qualifiers: Abdominal location: left lower quadrant Qualified Code(s): R10.32 - Left lower quadrant pain Problem details: Likely related to Augmentin use Foot looks stable with no acute infection Status: Acute (3) Elevated lipase: Status: Acute (4) Chronic alcoholic pancreatitis: Problem details: Multiple calcifications in the pancreas indicated of chronic pancreatitis Status: Acute Unfortunate 59-year-old male with hypertension, CAD with metastatic lung cancer on immunotherapy. Patient admitted with abdominal pain nausea vomiting and an elevated lipase of greater than 438. Patient has pancreatic calcifications with the dilated pancreatic duct related to past heavy alcohol use. His most recent chemotherapy was on March 2020 with pemetrexed and pembrolizumab. He has been started on IV Protonix. Pancreatitis has been associated with use of pemetrexed and pembrolizumab. He could be experiencing immune may related toxicity from pembrolizumab causing duodenitis and pancreatitis. He also reports constipation for the past 4 days though p.o. intake has been poor. RECOMMENDATIONS: 1. Start on a clear liquid diet in the am and advance diet as tolerated. 2. Increase Miralax to 2-3 times daily till he has a BM and then decrease to once a day. 3. Consider a change in chemotherapy regimen if he has recurrent episodes of pancreatitis. ADDENDUM: Patient was transferred to [facility] for further management for loculated pericardial effusion.
[2020-04-20 14:48] LABS: Lipase 298 U/L (8-78)
--- NOTE | 2020-04-20 17:05 | HO.PM.IMPN ---
Subjective Subjective Date of Service: 04/20/20 Interval History: Patient seen and examined at bedside patient was reporting abdominal pain and nausea Review of Systems Constitutional : No Weight loss, No Fever, No Chills ENT/Mouth : No sore throat, No Rhinorrhea Eyes: No Swelling, No Redness Cardiovascular : Shortness of breath, mild edema, no chest pain Respiratory : No Cough, No Sputum, No Wheezing Gastrointestinal : Positive Nausea, Positive Vomiting, no Diarrhea, positive abdominal Pain, No Hematochezia, No Melena, pos constipation Genitourinary : No Dysuria, No Urinary Frequency, No Hematuria, No Urgency Musculoskeletal : No joint pain, No Myalgias, No Joint Swelling Skin : No Skin Lesions, No rash Neuro : pos Weakness, No Numbness, No Dizziness, No Headache Psych : No Anxiety/Panic, No Depression Heme/Lymph: No Bruising, No Lymphadenopathy Endocrine : No Polyuria, No Polydipsia All other systems reviewed and are negative. Physical Exam Vital Signs: Vital Signs: Last Vital Signs Temp 97.8 F 04/20/20 16:00 Pulse 110 H 04/20/20 16:00 Resp 18 04/20/20 16:00 BP 138/81 04/20/20 16:00 Pulse Ox 93 04/20/20 16:00 Body Mass Index 25.8 Const: General: no acute distress Orientation/consciousness: patient oriented x3 Eyes: General: appearance normal, both eyes and all related structures Neck: Neck: Yes normal visual inspection Resp: Effort & Inspection: normal respiratory effort and able to speak in complete sentences Cardio: Jugular venous distension: no JVD Heart sounds: S1 normal heart sound present GI: Inspection: Yes normal to inspection Auscultation: normal bowel sounds Skin: General skin exam: no rashes or lesions noted Neuro: General: patient oriented x3 Objective Data Current Medications Generic Name Dose Route Start Last Admin Trade Name Freq PRN Reason Stop Dose Admin Albuterol Sulfate 1 puff 04/19/20 16:12 Albuterol Sulfate 90 Mcg 8 Gm Inhaler INHALE QID PRN Shortness Of Breath Or Wheezing Albuterol/Ipratropium 3 ml 04/19/20 14:40 Albuterol/Iprat 2.5/0.5mg 3 Ml Ampul.Neb INHALE RQ4H PRN Dyspnea Aspirin 81 mg 04/20/20 09:00 04/20/20 11:51 Aspirin Enteric Coated 81 Mg Tablet. PO 81 mg DAILY MOLLY Administration Atorvastatin Calcium 40 mg 04/19/20 21:00 04/19/20 21:42 Atorvastatin Calcium 40 Mg Tablet PO 40 mg BEDTIME MOLLY Administration Clopidogrel Bisulfate 75 mg 04/20/20 09:00 04/20/20 11:51 Clopidogrel Bisulfate 75 Mg Tablet PO 75 mg DAILY MOLLY Administration Docusate Sodium 100 mg 04/19/20 21:00 04/19/20 21:42 Docusate Sodium 100 Mg Capsule PO 100 mg BEDTIME MOLLY Administration Enoxaparin Sodium 40 mg 04/19/20 15:00 04/19/20 17:26 Enoxaparin Sodium 40 Mg/0.4 Ml Syringe SUBCUT 40 mg Q24H [facility] Administration Ferrous Sulfate 324 mg 04/19/20 21:00 04/20/20 11:48 Ferrous Sulfate 324 Mg Tablet. PO 324 mg BID MOLLY Administration Fluticasone Propionate 1 puff 04/19/20 20:00 04/20/20 11:40 Fluticasone Propionate 100 Mcg Blst.W.Dev INHALE 1 puff RBID [facility] Administration Folic Acid 1 mg 04/20/20 09:00 04/20/20 11:50 Folic Acid 1 Mg Tablet PO 1 mg DAILY [facility] Administration Promethazine HCl 6.25 mg/ 50.25 mls @ 201 mls/hr 04/19/20 14:40 04/19/20 20:35 Sodium Chloride IV Infused Q6H PRN Infusion Nausea and Vomiting Lactated Ringer's 1,000 mls @ 100 mls/hr 04/20/20 15:00 Lr IVCONT .Q10H [facility] Isosorbide Mononitrate 60 mg 04/20/20 09:00 04/20/20 11:48 Isosorbide Mononitrate 60 Mg Tab.Er.24h PO 60 mg DAILY [facility] Administration Protocol Loratadine 10 mg 04/20/20 09:00 04/20/20 11:48 Loratadine 10 Mg Tablet PO 10 mg DAILY [facility] Administration Oxycodone HCl 5 mg 04/19/20 16:12 04/20/20 00:57 Oxycodone Hcl Immed Release 5 Mg Tablet PO 5 mg Q6H PRN Administration Foot pain Pantoprazole Sodium 40 mg 04/20/20 13:49 Pantoprazole Sodium 40 Mg/10 Ml Vial IVPUSH BID@5407,3730 MOLLY Polyethylene Glycol 17 gm 04/19/20 14:45 04/20/20 12:45 Polyethylene Glycol 3350 17 Gm Powd.Pack PO 17 gm DAILY MOLLY Administration Sodium Chloride 3 ml 04/19/20 16:00 04/20/20 12:46 0.9 % Sodium Chloride Flush 3 Ml Syringe IVFLUSH 3 ml QSHIFT MOLLY Administration Tamsulosin HCl 0.4 mg 04/20/20 09:00 04/20/20 11:50 Tamsulosin Hcl 0.4 Mg Capsule PO 0.4 mg DAILY MOLLY Administration Thiamine HCl 100 mg 04/20/20 09:00 04/20/20 11:50 Thiamine Hcl 100 Mg Tablet PO 100 mg DAILY MOLLY Administration Tiotropium Hope 1 puff 04/20/20 09:00 04/20/20 11:40 Tiotropium Hope 18 Mcg Cap.W.Dev INHALE 1 puff DAILY MOLLY Administration Labs CBC & Chem 7: 04/20/20 13:24 04/20/20 13:24 Microbiology Microbiology Results: Microbiology 04/19/20 09:24 Blood - Venous Blood Culture - Preliminary No growth after 24 hours. 04/19/20 08:11 Blood - Venous Blood Culture - Preliminary No growth after 24 hours. Assessment and Plan (1) Nausea & vomiting: Status: Acute (2) Abdominal pain: Status: Acute (3) Anasarca: Status: Acute (4) Leukocytosis: Status: Acute (5) Acidosis, lactic: Status: Acute Assessment and Plan: 59-year-old male with advanced stage IV lung cancer presented with nausea vomiting and poor p.o. intake, CT abdomen did not show any obstruction, found to have prolonged QTC of 633 Nausea vomiting not able to tolerate p.o with abdominal pain likely pancreatitis related to immunotherapy mildly elevated lipase, CT abdomen shows cystic lesions in the pancreas and calcification Continue supportive management continue pain management started on gentle IV fluid Continue supportive management Will hold Zofran given prolonged QTC continue Phenergan Prolonged QTC resolved EKG on admission shows QTC of 600 repeat EKG today shows QTC 453 Hold Seroquel and venlafaxine Monitor on telemetry Magnesium 2.6 and potassium was 4.8 Lactic acidosis likely secondary to nebulizer treatment not from sepsis constipation continue bowel regimen History of PAD Continue aspirin and Plavix h/o CAD Continue aspirin Lipitor Imdur COPD not in exacerbation Will give DuoNeb as needed Stage IV lung cancer Follows Dr. Mann as outpatient Oncology consulted DVT prophylaxis Lovenox Patient wishes to be full code
[2020-04-20] MEDS: Pantoprazole Sodium 40 MG/10 ML VIAL IVPUSH ×2 (17:11→17:30)
[2020-04-20] MEDS: Enoxaparin Sodium 40 MG/0.4 ML SYRINGE SUBCUT (17:11)
[2020-04-20] MEDS: Lactated Ringers 1,000 ML 100 ML IVCONT (17:12)
[2020-04-20] MEDS: Docusate Sodium 100 MG CAPSULE PO (20:47)
[2020-04-20] MEDS: Atorvastatin Calcium 40 MG TABLET PO (20:47)
[2020-04-21] MEDS: 0.9 % Sodium Chloride Flush 3 ML SYRINGE IVFLUSH ×3 (00:06→15:53)
[2020-04-21] MEDS: Morphine Sulfate 4 MG/ML CARTRIDGE IVPUSH (00:27)
[2020-04-21] MEDS: guaiFENesin DM 100/10/5 ML 5 ML SYRUP PO (00:28)
[2020-04-21 04:00] VITALS: BP 106/66; PULSE 112; RESP 18; TEMP 36.3; O2SAT 95
--- NOTE | 2020-04-21 05:53 | P.CNHO_ITS ---
Subjective - Subjective Chief complaint: Abdominal pain Patient: known to practice within the last 3 years Consult date: 04/20/20 Primary Care Provider: Wendy Liu MD HPI - Consult Narrative Reason for consult: Patient with metastatic lung cancer admitted for abdominal pain, nausea Narrative: Parviz Rosas is a 59 year old male who has been diagnosed with metastatic lung cancer in May 2019. He started palliative systemic treatment with chemotherapy and immunotherapy in July 2019. He has had a few interruptions in treatment because of recurrent osteomyelitis of his right foot and infections. However, overall he was tolerating treatment fairly well. He used to have mild nausea and emesis for a few days after treatment but this time patient states that his nausea only got worse. He also started to developed epigastric/abdominal pain and constipation. He has not been able to eat or take much fluids. He presented to the emergency department and imaging with CT abdomen/pelvis revealed ascites, small pericardial effusion and duodenitis. Chronic calcifications in pancreas with mildly elevated lipase. He has been started on IV fluids and IV PPI with Protonix. Antiemetics and laxatives have been ordered. He denies fever or chills. No chest pain or shortness of breath. No hematochezia, melena or hematemesis. Review of Systems - Constitutional Reports as per HPI, Reports poor appetite - Cardiovascular Denies chest pain with activity, Denies lightheadedness, Denies rapid, pounding, or irregular heartbeat - Respiratory Denies no additional respiratory complaints - Gastrointestinal Denies no additional gastrointestinal complaints - Neurologic Reports hearing normal, Denies abnormal speech, Denies dizziness, Denies headache(s), Denies seizure-like activity [facility] Medical History: Medical History (Last Updated 04/20/20 @ 17:59 by Fredrick Mejia MD) Amputation of one or more toes BPH (benign prostatic hyperplasia) Bronchitis, chronic CAD (coronary artery disease) COPD (chronic obstructive pulmonary disease) Depression Diabetes type 2 with atherosclerosis of arteries of extremities GERD (gastroesophageal reflux disease) Hyperlipidemia Hypertension Lung cancer Non-small cell lung cancer with metastasis SHANIQUA (obstructive sleep apnea) Osteomyelitis of third toe of right foot PAD (peripheral artery disease) Peripheral neuropathy Post-op bleeding PVD (peripheral vascular disease) Smoker Tobacco consumption Family History: Family History (Last Reviewed 04/19/20 @ 13:16 by Angel Shukla MD) Father History of lung cancer Mother History of hypertension Family history of Alzheimer's disease Maternal Uncle History of colon cancer Surgical History: Surgical History (Last Reviewed 04/19/20 @ 13:16 by Angel Shukla MD) History of angioplasty History of bronchoscopy History of cholecystectomy History of hernia repair History of removal of cyst History of tonsillectomy Osteomyelitis of fifth toe of right foot Osteomyelitis of fourth toe of right foot Social History: Social History (Last Reviewed 04/19/20 @ 13:17 by Angel Shukla MD) Living Situation History: Household Members: Spouse Housing: Apartment Do you presently have visiting nurse or other home services: Yes Alcohol History: Alcohol intake: never Tobacco History: Smoking Status: Current every day smoker Tobacco Type: Cigarette Packs Per Day: 2 Smoked in Last 30 Days: Yes Patient Interested in Nicotine Replacement: Yes Substance Use History: Use of substances other than those prescribed or required for medical reasons : Yes Substance Use Type: Marijuana Substance Use Frequency: Daily Last Used Substance: Days (ago) Currently Displaying Signs/Symptoms of Drug Intoxication Withdrawal: No Domestic Abuse History: Have you been hit, kicked, punched, or otherwise hurt by someone within the past year? If so, by whom?: No Do you feel safe in your current relationship?: Yes Is there a partner from a previous relationship who is making you feel unsafe now?: No Are you made to feel afraid or neglected: No Advance Directives: Advance Directives: Yes Advance Directives on File: Yes Advance Directives Date on File: 04/14/09 Homicidal Assessment: Do you have thoughts of harming others: None Do you have a plan to hurt others: No Plan Nutrition Assessment: Recently lost weight without trying: Unsure Eating poorly because of decreased appetite: Yes Nutrition Risks: Acute nausea or vomiting Poor oral hygiene: No Occupation Assessmet: service: No Current occupational status: unemployed Smoking status: Current every day smoker Home Medications and Allergies Current Medications: Current Medications Generic Name Dose Route Start Last Admin Trade Name Freq PRN Reason Stop Dose Admin Albuterol Sulfate 1 puff 04/19/20 16:12 Albuterol Sulfate 90 Mcg 8 Gm Inhaler INHALE QID PRN Shortness Of Breath Or Wheezing Albuterol/Ipratropium 3 ml 04/19/20 14:40 Albuterol/Iprat 2.5/0.5mg 3 Ml Ampul.Neb INHALE RQ4H PRN Dyspnea Aspirin 81 mg 04/20/20 09:00 04/20/20 11:51 Aspirin Enteric Coated 81 Mg Tablet. PO 81 mg DAILY MOLLY Administration Atorvastatin Calcium 40 mg 04/19/20 21:00 04/20/20 20:47 Atorvastatin Calcium 40 Mg Tablet PO 40 mg BEDTIME MOLLY Administration Clopidogrel Bisulfate 75 mg 04/20/20 09:00 04/20/20 11:51 Clopidogrel Bisulfate 75 Mg Tablet PO 75 mg DAILY MOLLY Administration Docusate Sodium 100 mg 04/19/20 21:00 04/20/20 20:47 Docusate Sodium 100 Mg Capsule PO 100 mg BEDTIME MOLLY Administration Enoxaparin Sodium 40 mg 04/19/20 15:00 04/20/20 17:11 Enoxaparin Sodium 40 Mg/0.4 Ml Syringe SUBCUT 40 mg Q24H MOLLY Administration Ferrous Sulfate 324 mg 04/19/20 21:00 04/20/20 20:46 Ferrous Sulfate 324 Mg Tablet. PO 324 mg BID MOLLY Administration Fluticasone Propionate 1 puff 04/19/20 20:00 04/20/20 20:19 Fluticasone Propionate 100 Mcg Blst.W.Dev INHALE 1 puff RBID MOLLY Administration Folic Acid 1 mg 04/20/20 09:00 04/20/20 11:50 Folic Acid 1 Mg Tablet PO 1 mg DAILY [facility] Administration Promethazine HCl 6.25 mg/ 50.25 mls @ 201 mls/hr 04/19/20 14:40 04/19/20 20:35 Sodium Chloride IV Infused Q6H PRN Infusion Nausea and Vomiting Lactated Ringer's 1,000 mls @ 100 mls/hr 04/20/20 15:00 04/21/20 03:09 Lr IVCONT Not Given .Q10H [facility] Isosorbide Mononitrate 60 mg 04/20/20 09:00 04/20/20 11:48 Isosorbide Mononitrate 60 Mg Tab.Er.24h PO 60 mg DAILY [facility] Administration Protocol Loratadine 10 mg 04/20/20 09:00 04/20/20 11:48 Loratadine 10 Mg Tablet PO 10 mg DAILY MO[facility] Administration Oxycodone HCl 5 mg 04/19/20 16:12 04/20/20 20:46 Oxycodone Hcl Immed Release 5 Mg Tablet PO 5 mg Q6H PRN Administration Foot pain Pantoprazole Sodium 40 mg 04/20/20 13:49 04/20/20 17:30 Pantoprazole Sodium 40 Mg/10 Ml Vial IVPUSH 40 mg BID@0630,1630 MO[facility] Administration Polyethylene Glycol 17 gm 04/19/20 14:45 04/20/20 12:45 Polyethylene Glycol 3350 17 Gm Powd.Pack PO 17 gm DAILY MO[facility] Administration Sodium Chloride 3 ml 04/19/20 16:00 04/21/20 00:06 0.9 % Sodium Chloride Flush 3 Ml Syringe IVFLUSH 3 ml QSHIFT [facility] Administration Tamsulosin HCl 0.4 mg 04/20/20 09:00 04/20/20 11:50 Tamsulosin Hcl 0.4 Mg Capsule PO 0.4 mg DAILY MO[facility] Administration Thiamine HCl 100 mg 04/20/20 09:00 04/20/20 11:50 Thiamine Hcl 100 Mg Tablet PO 100 mg DAILY [facility] Administration Tiotropium [place] 1 puff 04/20/20 09:00 04/20/20 11:40 Tiotropium [place] 18 Mcg Cap.W.Dev INHALE 1 puff DAILY MO[facility] Administration Home Medications Medication Instructions Recorded Confirmed Type aspirin 81 mg tablet,delayed 81 mg PO DAILY 12/18/19 04/19/20 History release atorvastatin 40 mg tablet 40 mg PO BEDTIME 12/18/19 04/19/20 History clopidogrel 75 mg tablet 75 mg PO DAILY 12/18/19 04/19/20 History famotidine 20 mg tablet 20 mg PO DAILY 12/18/19 04/19/20 History folic acid 1 mg tablet 1 mg PO DAILY 12/18/19 04/19/20 History isosorbide mononitrate 60 mg 60 mg PO DAILY 12/18/19 04/19/20 History tablet,extended release 24 hr loratadine 10 mg capsule 10 mg PO DAILY 12/18/19 04/19/20 History magnesium gluconate 27 mg 27 mg PO DAILY tab 12/18/19 04/19/20 History magnesium (500 mg) tablet quetiapine 50 mg tablet 50 mg PO BID 12/18/19 04/19/20 History tamsulosin 0.4 mg capsule 0.4 mg PO DAILY 12/18/19 04/19/20 History thiamine HCl (vitamin B1) 100 mg 100 mg PO DAILY 12/18/19 04/19/20 History tablet venlafaxine 37.5 mg 37.5 mg PO DAILY 12/18/19 04/19/20 History capsule,extended release 24 hr vitamin B complex 1 tab PO DAILY 12/18/19 04/19/20 History Spiriva with HandiHaler 1 cap INHALATION DAILY 01/08/20 04/19/20 History albuterol sulfate [ProAir HFA] 1 inh INHALATION QID PRN 01/08/20 04/19/20 History ferrous sulfate 325 mg PO BID 01/08/20 04/19/20 History gabapentin 300 mg PO TID 01/08/20 04/19/20 History gabapentin 600 mg PO TID 01/08/20 04/19/20 History multivitamin 1 tab PO DAILY 01/08/20 04/19/20 History omeprazole 20 mg PO BID 01/08/20 04/19/20 History ondansetron HCl [Zofran] 8 mg PO Q8H PRN 01/08/20 04/15/20 History fluticasone propionate 1 puff INHALATION BID 02/17/20 04/19/20 History Allergies Allergy/AdvReac Type Severity Reaction Status Date / Time lisinopril [LISINOPRIL] Allergy Intermediate BLEEDING Verified 01/23/20 15:44 IN MOUTH,SWELLING Josh inhibitors Allergy Unknown Unknown Uncoded 12/18/19 11:48 Physical Exam Vital signs: Vital Signs Temp 97.4 F 04/21/20 04:00 Pulse 112 H 04/21/20 04:00 Resp 18 04/21/20 04:00 BP 106/66 04/21/20 04:00 Pulse Ox 95 04/21/20 04:00 Intake & Output 04/20/20 04/20/20 04/21/20 06:59 18:59 06:59 Intake Total 6.25 / 6.25 1100 / 1100 Output Total 0 / 0 Balance 6.25 / 6.25 1100 / 1100 0 / 1100 Urine Output (Average ml/kg/hr) 0.00 Intake: Intake, IV Amount 6.25 / 6.25 1100 / 1100 0.9 % Sodium Chloride 500 ml @ 1000 / 1000 500 mls/hr IV .Q1H MOLLY Rx#: [id number] Magnesium Sulfate/H2O 2 gm In 50 / 50 50 ml @ 50 mls/hr IV ONCE ONE Rx#:[id number] Piperacillin Sodium/Tazobactam 50 / 50 3.375 gm In 0.9 % Sodium Chloride 50 ml @ 100 mls/hr IV ONCE ONE Rx#:[id number] Promethazine HCL 6.25 mg In 0.9 6.25 / 6.25 % Sodium Chloride 50 ml @ 201 mls/hr IV Q6H PRN Rx#: [id number] Output: Output, Urine Amount 0 / 0 Other: Breakfast % Eaten 0% Number of Unmeasured Voids 1 Urine Bathroom Last Bowel Movement 04/16/20 Weight 81.647 kg - Constitutional Present: mild distress - Routine HEENT Exam Head: Present: normal inspection Eye: Present: EOMI - Routine Respiratory Exam Present: rhonchi. Absent: respiratory distress - Routine Cardiovascular Exam Cardiovascular: Present: S1, S2, tachycardia - Routine Abdominal Exam Present: distended, tenderness Hem/Onc Consult Result - Labs CBC & Chem 7: 04/21/20 10:46 04/20/20 13:24 Labs: Short CBC 04/20/20 Range/Units 13:24 WBC 28.0 H (4.8-10.8) X10*3/uL Hgb 9.3 L (14.0-18.0) g/dl Hct 29.0 L (42-52) % Plt Count 852 H (160-400) X10*3/uL BMP 04/20/20 13:24 Sodium 131 L Potassium 4.3 Chloride 102 Carbon Dioxide 19 L BUN 32 H D Creatinine 0.87 Calcium 6.5 L D Assessment and Plan (1) Abdominal pain Status: Acute Qualifiers: Abdominal location: left lower quadrant Qualified Code(s): R10.32 - Left lower quadrant pain 1. This is a 59-year-old male with metastatic lung cancer, adenocarcinoma who presented with lymphadenopathy and bone metastasis. he has been on palliative chemotherapy with carboplatin, pemetrexed and pembrolizumab since July 2019. His most recent chemotherapy was on March 2020 with pemetrexed and pembrolizumab. He is now presenting with abdominal pain, nausea emesis, ascites and pericardial effusion. He has elevated lipase and duodenitis on imaging. He has been started on IV Protonix. I recommend starting him on methylprednisolone 60 mg IV q.12. He could be experiencing immune may related toxicity from pembrolizumab causing duodenitis and pancreatitis. 2. Leukocytosis and thrombocytosis probably related to inflammation. Does not appear to be infectious in etiology. I thank you for this consult, will follow with you.
[2020-04-21] MEDS: Lactated Ringers 1,000 ML 100 ML IVCONT (06:05)
[2020-04-21] MEDS: Pantoprazole Sodium 40 MG/10 ML VIAL IVPUSH ×2 (06:05→15:50)
[2020-04-21 07:20] VITALS: BP 117/74; PULSE 107; RESP 22; TEMP 36.2; O2SAT 90
[2020-04-21] MEDS: Fluticasone Propionate 100 MCG BLST.W.DEV 1 PUFF INHALE (08:13)
[2020-04-21 08:16] VITALS: PULSE 112; O2SAT 93
[2020-04-21] MEDS: Isosorbide Mononitrate 60 MG TAB.ER.24H PO (08:26)
[2020-04-21] MEDS: Tamsulosin HCL 0.4 MG CAPSULE PO (08:26)
[2020-04-21] MEDS: Folic Acid 1 MG TABLET PO (08:27)
[2020-04-21] MEDS: Ferrous Sulfate 324 MG TABLET.DR PO (08:27)
[2020-04-21] MEDS: Loratadine 10 MG TABLET PO (08:27)
[2020-04-21] MEDS: Aspirin Enteric Coated 81 MG TABLET.DR PO (08:27)
[2020-04-21] MEDS: Clopidogrel Bisulfate 75 MG TABLET PO (08:27)
[2020-04-21] MEDS: Thiamine HCL 100 MG TABLET PO (08:27)
--- NOTE | 2020-04-21 09:33 | P.CDIC_ITS ---
CDI Concurrent Query Service Date: 04/21/20 Documentation Clarification: Please clarify if you are treating a proba ble/suspected/likely or confirmed: LABS: Hyponatremia Please specify if known PLEASE DO NOT DELETE/MODIFY EXISTING CONTENT Additional information is needed in order to code to the highest accuracy and appropriate Severity of Illness (SOI). Please clarify the information noted below in your progress notes and discharge summary. Risk Factors/Clinical Indicators/Treatments Labs findings: sodium 127 L 131L IV Fluids nausea, vomiting, weakness, low po intake. CDS: Naheed Billy CCS, CDIS Contact Number: [phone] Please Review the information above and exercise your independent professional judgment in responding to the query. If you concur, pleas document in the PROGRESS NOTES and DISCHARGE SUMMARY. If you do not agree with the query, please document in the query above. THIS QUERY IS PART OF THE PERMANENT MEDICAL RECORD
[2020-04-21 11:09] LABS: Basophils Percent Auto 0.1 % (0-2); Hemoglobin 8.5 g/dl (14.0-18.0); Imm Gran Abs Auto 0.28 X10*3/uL (0.00-0.03); Imm Gran Pct Auto 1.1 % (0.0-0.4); Lymphocytes Absolute Auto 1.4 X10*3/uL (1.2-4.9); Lymphocytes Percent Auto 5.4 % (20-40); MANUAL DIFF FLAG SCAN; Mean Corpuscular HGB Conc 32.7 g/dl (31.0-36.0); Mean Corpuscular Hemoglobin 29.3 pg (27.0-33.0); Mean Corpuscular Volume 89.7 fL (80-98); Mean Platelet Volume 9.3 fL (9.4-12.4); Monocytes Absolute Auto 2.3 X10*3/uL (0.1-1.2); Neutrophils Absolute Auto 21.9 X10*3/uL (2.0-8.3); Neutrophils Percent Auto 84.4 % (45-73); Platelet Count 704 X10*3/uL (160-400); SCAN SMEAR FLAG 1
[2020-04-21] MEDS: Nicotine 14 MG PATCH.TD24 TRANSDERMA (11:16)
[2020-04-21] MEDS: polyethylene glycoL 3350 17 GM POWD.PACK PO (11:16)
[2020-04-21 11:34] VITALS: BP 117/75; PULSE 105; RESP 22; TEMP 36.6; O2SAT 91
[2020-04-21 11:39] LABS: Anion Gap 18 (12-20); Blood Urea Nitrogen 52 mg/dL (9-16); Calcium 7.6 mg/dL (8.4-10.2); Carbon Dioxide 21 mmol/L (22-29); Chloride 93 mmol/L (96-108); Creatinine Clr Calc Pharmacy 57.9; Estimated Glomerular Filt Rate 52; Glucose Random 141 mg/dL (60-115); Potassium 5.6 mmol/L (3.3-5.1); Sodium 126 mmol/L (135-145)
[2020-04-21 12:08] LABS: SLIDE REVIEW VERIFIED
[2020-04-21 12:27] LABS: Alanine Aminotransferase 179 U/L (0-40); Albumin Level 3.5 g/dL (3.5-5.0); Alkaline Phosphatase 767 U/L (39-117); Aspartate Amino Transferase 118 U/L (5-37); Bilirubin Direct 0.7 mg/dL (0.0-0.5); Bilirubin Total 0.9 mg/dL (0.0-1.0); Lactate Dehydrogenase 329 U/L (118-273); Total Protein 6.2 g/dL (6.5-8.0); Uric Acid 11.3 mg/dL (3.4-7.0)
[2020-04-21 12:46] LABS: Lipase 245 U/L (8-78)
--- NOTE | 2020-04-21 13:00 | CA_ITS ---
Transthoracic Echocardiogram Patient (Last, First, Middle): Parviz Rosas L Gender: Male Date of : 1960 Age: 59 Procedure Date: 04/21/2020 Procedure Type: Transthoracic Echocardiogram Location: [facility] [place] Height: 177.8 cm Weight: 81.65 kg BSA: 2.00 m2 Heart Rate: bpm BP: 106 / 66 mmHg [id number] Architect: Referring MD: Angel Shukla MD Symptoms: assess pericardial effusion Study Quality: Good ECG Rhythm: Sinus Conclusions: - The left ventricular systolic function is mild to moderately decreased. The visually estimated ejection fraction is between 40-45%. - Posterior to the left ventricle and adjacent to the right ventricle, there seems to be pericardial fluid measuring up to 4.2 cm in size with compression of the right ventricle.There could be components of pleural /ascitic fluid as well. Loculations noted. Possible tamponade physiology. Findings Left Ventricle Normal left ventricular cavity size. There is mildly increased left ventricular wall thickness. The left ventricular systolic function is mild to moderately decreased. The visually estimated ejection fraction is between 40-45%. There is moderate global hypokinesis. Diastolic function is normal for age. Right Ventricle Normal right ventricular cavity size. There is mildly decreased right ventricular systolic function. Atria The left atrium is moderately dilated. The right atrium was not well visualized. Aortic Valve There is a normal trileaflet aortic valve. There is no aortic valve stenosis. There is trace (trivial) aortic valve regurgitation. Mitral Valve The mitral valve appears normal. There is trace mitral valve regurgitation. There is no mitral valve stenosis. Pulmonic Valve The pulmonic valve was not well visualized. Tricuspid Valve Normal tricuspid valve structure. There is trace tricuspid valve regurgitation. The pulmonary artery systolic pressure is normal. Great Vessels There is mild dilatation of the ascending aorta measuring 3.76 cm. Venous The inferior vena cava is dilated and does not collapse with inspiration. Pericardium/Pleural Posterior to the left ventricle and adjacent to the right ventricle, there seems to be pericardial fluid measuring up to 4.2 cm in size with compression of the right ventricle.There could be components of pleural /ascitic fluid as well. Loculations noted. Possible tamponade physiology. Prior Study Comparison No prior study available for comparison. Measurements 2D Linear Measurements IVSd: 1.28 0.6-0.9/0.6-1.0 cm LVIDd: 4.15 3.9-5.3/4.2-5.9 cm LVIDd Index: 2.08 2.4-3.2/2.2-3.1 cm/m2 LVIDs: 2.88 2.0-3.6 cm LVPWd: 1.25 0.7-1.1 cm Ao Root: 3.50 2.1-3.5 cm LA Diam: 4.50 2.7-3.8/3.0-4.0 cm LAIDs Index: 2.25 1.5-2.3 cm/m2 LV Mass: 235.67 67-162/88-224 g LV Mass Index: 117.83 43-95/49-115 g/m2 LVOT Diam: 2.40 3.0+(-)1.3 cm 2D Systolic Function EF 4C: 42.30 >55% EF 2C: 41.90 >55% EF BiP: 40.50 >55% Mitral Valve MV Pk E: 0.50 MV PK A: 0.77 MV Decel Time: 127.00 E/A: 0.60 E'Lateral: 10.30 E'Medial: 13.40 E/E' Med: 3.70 E/E' Lat: 4.80 PHT: 37.00 MVA PHT: 5.95 Decel Morrison: 3.91 Aortic Valve AoV Pk Gus: 1.37 AoV Mn Gus: 0.92 AoV VTI: 0.18 AoV Pk Grad: 8.00 Aov Mn Grad: 4.00 DOMINIQUE Cont.VTI: 2.52 AI Pk Gus: 3.35 AI Morrison: 2.89 LVOT LVOT Pk Gus: 0.73 LVOT Mn Gus: 0.50 LVOT VTI: 0.10 LVOT Pk Grad: 2.00 LVOT Mn Grad: 1.00 LVOT Diam: 2.40 LVOT Area: 4.52 Diastolic Function MV Pk E: 0.50 MV Pk A: 0.77 E/A: 0.60 E'Medial: 13.40 E/E' Med: 3.70 E' Laterial: 10.30 E/E' Lat: 4.80 Tricuspid Valve TR Pk Gus: 1.75 TR Pk Grad: 12.00 RA Press: 15.00 RVSP: 27.00 Great Vessels Aorta Ao Root-2D: 3.50 2.0-3.7 cm Ao Asc: 3.76 2.1-3.4 cm Pulmonary Valve PV Pk Gus: 0.86 Peak PV Grad: 3.00 Updated in Other Vendor System with Status of Final Marcelo Alvarado MD electronically signed on 04/21/2020 12:25:56 PM with status of Final
[2020-04-21] MEDS: Sodium Polystyrene Sulfon/Sorb 15 GM/60 ML ORAL.SUSP 30 GM PO (13:57)
[2020-04-21] MEDS: methylPREDNISolone Sod Succ/PF 125 MG/2 ML VIAL 60 MG IVPUSH (13:58)
[2020-04-21] MEDS: Enoxaparin Sodium 40 MG/0.4 ML SYRINGE SUBCUT (13:58)
[2020-04-21 14:26] LABS: Troponin-I High Sensitivity 21.8 ng/L (<3.5-35.0)
--- NOTE | 2020-04-21 14:44 | P.DS_ITS ---
DS: Providers Provider Date of Service: 04/22/20 Date of admission: 04/19/20 12:08 Primary care physician: Wendy Liu MD Consults: 04/20/20 11:28 Consult to Hematology / Oncology Routine Consulting Provider: Elizabeth Mann Reason for consultation: metastatic lung cancer 04/20/20 13:49 Consult to Gastroenterology Routine Consulting Provider: Briana Acosta Reason for consultation: acute pancreatitis 04/20/20 14:51 Consult to Infectious Diseases Routine Consulting Provider: Delia Carey Reason for consultation: leucocytosis 04/21/20 11:59 Consult to Nephrology Routine Consulting Provider: Alban Mooney Reason for consultation: Louis hyponatremia 04/21/20 12:28 Consult to Thoracic Surgery Routine Consulting Provider: Lakeshia Miller Reason for consultation: pericardial effusion concern for tamponade DS: Diagnosis Discharge Diagnosis (1) Nausea & vomiting: Status: Acute (2) Abdominal pain: Status: Acute Problem details: Likely related to Augmentin use Foot looks stable with no acute infection (3) Anasarca: Status: Acute (4) Leukocytosis: Status: Acute (5) Acidosis, lactic: Status: Acute DS: Medications Discharge Medications Home Medications: Home Medications Medication Instructions Recorded Confirmed aspirin 81 mg tablet,delayed 81 mg PO DAILY 12/18/19 04/19/20 release atorvastatin 40 mg tablet 40 mg PO BEDTIME 12/18/19 04/19/20 clopidogrel 75 mg tablet 75 mg PO DAILY 12/18/19 04/19/20 famotidine 20 mg tablet 20 mg PO DAILY 12/18/19 04/19/20 folic acid 1 mg tablet 1 mg PO DAILY 12/18/19 04/19/20 isosorbide mononitrate 60 mg 60 mg PO DAILY 12/18/19 04/19/20 tablet,extended release 24 hr loratadine 10 mg capsule 10 mg PO DAILY 12/18/19 04/19/20 magnesium gluconate 27 mg 27 mg PO DAILY tab 12/18/19 04/19/20 magnesium (500 mg) tablet quetiapine 50 mg tablet 50 mg PO BID 12/18/19 04/19/20 tamsulosin 0.4 mg capsule 0.4 mg PO DAILY 12/18/19 04/19/20 thiamine HCl (vitamin B1) 100 mg 100 mg PO DAILY 12/18/19 04/19/20 tablet venlafaxine 37.5 mg 37.5 mg PO DAILY 12/18/19 04/19/20 capsule,extended release 24 hr vitamin B complex 1 tab PO DAILY 12/18/19 04/19/20 Spiriva with HandiHaler 1 cap INHALATION DAILY 01/08/20 04/19/20 albuterol sulfate [ProAir HFA] 1 inh INHALATION QID PRN 01/08/20 04/19/20 ferrous sulfate 325 mg PO BID 01/08/20 04/19/20 gabapentin 300 mg PO TID 01/08/20 04/19/20 gabapentin 600 mg PO TID 01/08/20 04/19/20 multivitamin 1 tab PO DAILY 01/08/20 04/19/20 omeprazole 20 mg PO BID 01/08/20 04/19/20 ondansetron HCl [Zofran] 8 mg PO Q8H PRN 01/08/20 04/15/20 fluticasone propionate 1 puff INHALATION BID 02/17/20 04/19/20 Previous Rx's Medication Instructions Recorded oxycodone 5 mg PO Q6H PRN #14 tab 12/26/19 DS: Summary Hospital Course Hospital Course: HPI 59 year old male with advanced stage IV metastatic lung cancer presented with nausea vomiting and poor p.o. intake, Patient reported since he is having nausea and vomiting and not able to keep anything down, and Patient was not able to take any medication, in the ER found to have elevated wbcs , Patient was also reporting constipation and abdominal pain, CT abdomen done in the ER shows Mets to liver and spleen but no bowel obstruction, Patient denies fever chills or sick contacts, patient received fluid, patient follows Dr. Mann for stage IV lung cancer last chemotherapy was 2 weeks ago,EKG shows prolonged QTC. Hospital course 59-year-old male with advanced stage IV metastatic lung cancer admitted with acute on chronic pancreatitis CT abdomen on admission shows liver nodularity, pancreatic cysts, patient was started on supportive management, patient continues to have nausea and vomiting, patient was started on IV fluid, supportive managent ,gastroenterology and oncology was consulted recommended starting PPI, Oncology recommended starting Solu-Medrol for possible immunotherapy related pancreatitis, patient was started on IV steroids per oncology , Will continue IV steroid on transfer and can stop if found to have malignant effusion. CT abdomen on admission shows small pericardial effusion, Echocardiogram was done shows large pericardial effusion, cardiology recommended CT chest, CT chest shows large loculated pericardial effusion with possible hemopericardium, given metastatic lung cancer pericardial effusion could be malignant, thoracic surgery Dr. Marina was consulted recommended holding antihypertensive and holding aspirin and Plavix, aspirin Plavix and Imdur was held, patient's blood pressure was stable, thoracic surgery recommended transferring patient to [facility] further management of pericardial effusion, patient was stable transferred to [facility] for further management During the hospital course patient also found to have mild acute kidney injury and hyperkalemia with potassium 5.6, patient was started on IV fluid and patient was given Kayexalate ringer lactate was switched NS given mild hyperkalemia , patient was also treated for COPD exacerbation with nebulizer and steroid.patient was also noted have leucocytosis on admission likely reactive no source of infection was found and blood culture were negative . Patient was stable transferred to [facility] for further management for loculated pericardial effusion. 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 There is a 1.7 cm right upper lobe nodule axial image 16 series 3. This does not appear appreciably changed from recent March 2010 exam. There is narrowing of the right mainstem bronchus and increased surrounding soft tissue. This is similar to previous exam. There is subsegmental atelectasis at the lung bases, left greater than right. MEDIASTINUM: There is a large pericardial effusion. This appears loculated adjacent to the right side of the heart and at the apex. This is slightly lobulated in shape. This is higher in attenuation than simple fluid measures. Hounsfield units without contrast measure 40-45. Appearance is questionable for complex pericardial effusion or hemopericardium. Given history of malignancy, malignant pericardial effusion should also be considered. This is significantly increased in size from 03/27/[address] scan. This appears increased in size from recent abdominal pelvic CT scan 04/19/2020. There is mediastinal lymphadenopathy that does not appear appreciably changed. There evaluation for hilar adenopathy is limited without contrast. There is likely right hilar and right subcarinal/infrahilar lymphadenopathy as well. This appears unchanged.. There is coronary artery calcification. There is atherosclerotic disease of the aorta. The thoracic aorta is upper normal in size and PLEURA: There is a small left pleural effusion. There is no right pleural effusion. AXILLA: There is increased fat stranding of the left axilla and chest wall. There is a shotty left axillary lymphadenopathy. This is new or increased from March 2020 exam. Right axilla and chest wall are unremarkable. UPPER ABDOMEN: There is a upper abdominal lymphadenopathy. There is retrocrural lymphadenopathy. There is a be is trace ascites. There is diffuse fat stranding in seen in the central upper abdomen. OSSEOUS STRUCTURES: There are old right lower posterior rib fractures. There are degenerative changes of the spine. CT/CT chest wo con IMPRESSION: Large probably loculated pericardial effusion adjacent to the right side heart and at the apex. This is significantly increased in size from previous chest CT 03/27/2020 and increased in size from more recent abdominal CT 04/19/2020. This is higher in attenuation than simple fluid and is questionable for hemopericardium. Stable right upper lobe pulmonary nodule. Stable lymphadenopathy. Emphysema. Small left pleural effusion. Transthoracic echocardiogram onclusions: - The left ventricular systolic function is mild to moderately decreased. The visually estimated ejection fraction is between 40-45%. - Posterior to the left ventricle and adjacent to the right ventricle, there seems to be pericardial fluid measuring up to 4.2 cm in size with compression of the right ventricle.There could be components of pleural /ascitic fluid as well. Loculations noted. Possible tamponade physiology. Findings Left Ventricle Normal left ventricular cavity size. There is mildly increased left ventricular wall thickness. The left ventricular systolic function is mild to moderately decreased. The visually estimated ejection fraction is between 40-45%. There is moderate global hypokinesis. Diastolic function is normal for age. Right Ventricle Normal right ventricular cavity size. There is mildly decreased right ventricular systolic function. Atria The left atrium is moderately dilated. The right atrium was not well visualized. Aortic Valve There is a normal trileaflet aortic valve. There is no aortic valve stenosis. There is trace (trivial) aortic valve regurgitation. Mitral Valve The mitral valve appears normal. There is trace mitral valve regurgitation. There is no mitral valve stenosis. Pulmonic Valve The pulmonic valve was not well visualized. Tricuspid Valve Normal tricuspid valve structure. There is trace tricuspid valve regurgitation. The pulmonary artery systolic pressure is normal. Great Vessels There is mild dilatation of the ascending aorta measuring 3.76 cm. Venous The inferior vena cava is dilated and does not collapse with inspiration. Pericardium/Pleural Posterior to the left ventricle and adjacent to the right ventricle, there seems to be pericardial fluid measuring up to 4.2 cm in size with compression of the right ventricle.There could be components of pleural /ascitic fluid as well. Loculations noted. Possible tamponade physiology. Time Spent with Patient Time attestation: Total time spent providing and/or coordinating discharge services: Discharge coordination time: Greater than 30 minutes Physical Exam Vital Signs: Vital Signs: Last Vital Signs Temp 97.9 F 04/21/20 11:34 Pulse 105 H 04/21/20 11:34 Resp 22 H 04/21/20 11:34 BP 117/75 04/21/20 11:34 Pulse Ox 91 L 04/21/20 11:34 Body Mass Index 25.8 DS: Data Data Completed and Pending Labs on day of discharge: Laboratory Tests 04/19/20 04/19/20 04/19/20 08:11 08:11 08:11 WBC 26.0 H RBC 3.51 L Hgb 10.3 L Hct 31.4 L MCV 89.5 MCH 29.3 MCHC 32.8 RDW 16.5 H Plt Count 881 H D MPV 9.2 L Immature Gran % (Auto) 1.1 H Neut % (Auto) 87.1 H Lymph % (Auto) 4.6 L [place] % (Auto) 7.0 Eos % (Auto) 0.0 Baso % (Auto) 0.2 Lymph # (Auto) 1.2 [place] # (Auto) 1.8 H Eos # (Auto) 0.0 Baso # (Auto) 0.0 Abs Immat Gran (auto) 0.28 H Absolute Neuts (auto) 22.7 H Absolute Nucleated RBC 0.000 Nucleated RBC % (auto) 0.0 Smear Tech's Comments VERIFIED PT INR APTT Sodium 127 L Potassium 4.8 Chloride 91 L Carbon Dioxide 22 Anion Gap 19 BUN 21 H D Creatinine 1.19 Estim Creat Clear Calc 68.1 Estimated GFR > 60 Random Glucose 178 H Lactic Acid Lactic Acid Fup @ 2Hr Lactic Acid Fup @ 4Hr Uric Acid Calcium 8.3 L Magnesium 2.5 Total Bilirubin 0.7 Direct Bilirubin 0.4 AST 16 ALT 18 Alkaline Phosphatase 431 H D Lactate Dehydrogenase Troponin I High Sens B-Natriuretic Peptide Total Protein 7.1 Albumin 4.0 Lipase Urine Color Urine Appearance Urine pH Ur Specific [place] Urine Protein Urine Glucose (UA) Urine Ketones Urine Blood Urine Nitrite Ur Leukocyte Esterase Urine RBC Urine WBC Ur Squamous Epith Cells Urine Bacteria Hyaline Casts COVID-19 (DUNG) Negative COVID-19 Clin Com See Note 04/19/20 04/19/20 04/19/20 08:11 08:11 08:11 WBC RBC Hgb Hct MCV MCH MCHC RDW Plt Count MPV Immature Gran % (Auto) Neut % (Auto) Lymph % (Auto) [place] % (Auto) Eos % (Auto) Baso % (Auto) Lymph # (Auto) [place] # (Auto) Eos # (Auto) Baso # (Auto) Abs Immat Gran (auto) Absolute Neuts (auto) Absolute Nucleated RBC Nucleated RBC % (auto) Smear Tech's Comments PT 16.6 H INR 1.4 H APTT 44.7 H Sodium Potassium Chloride Carbon Dioxide Anion Gap BUN Creatinine Estim Creat Clear Calc Estimated GFR Random Glucose Lactic Acid 3.4 H* Lactic Acid Fup @ 2Hr Lactic Acid Fup @ 4Hr Uric Acid Calcium Magnesium Total Bilirubin Direct Bilirubin AST ALT Alkaline Phosphatase Lactate Dehydrogenase Troponin I High Sens B-Natriuretic Peptide Total Protein Albumin Lipase 438 H Urine Color Urine Appearance Urine pH Ur Specific [place] Urine Protein Urine Glucose (UA) Urine Ketones Urine Blood Urine Nitrite Ur Leukocyte Esterase Urine RBC Urine WBC Ur Squamous Epith Cells Urine Bacteria Hyaline Casts COVID-19 (DUNG) COVID-19 Clin Com 04/19/20 04/19/20 04/19/20 08:55 12:04 12:04 WBC RBC Hgb Hct MCV MCH MCHC RDW Plt Count MPV Immature Gran % (Auto) Neut % (Auto) Lymph % (Auto) [place] % (Auto) Eos % (Auto) Baso % (Auto) Lymph # (Auto) [place] # (Auto) Eos # (Auto) Baso # (Auto) Abs Immat Gran (auto) Absolute Neuts (auto) Absolute Nucleated RBC Nucleated RBC % (auto) Smear Tech's Comments PT INR APTT Sodium Potassium Chloride Carbon Dioxide Anion Gap BUN Creatinine Estim Creat Clear Calc Estimated GFR Random Glucose Lactic Acid Lactic Acid Fup @ 2Hr 3.2 H* Lactic Acid Fup @ 4Hr Uric Acid Calcium Magnesium Total Bilirubin Direct Bilirubin AST ALT Alkaline Phosphatase Lactate Dehydrogenase Troponin I High Sens 19.6 D B-Natriuretic Peptide 247 H Total Protein Albumin Lipase Urine Color YELLOW Urine Appearance HAZY Urine pH 5.5 Ur Specific [place] >= 1.030 H Urine Protein 1+ H Urine Glucose (UA) NEG Urine Ketones NEG Urine Blood NEG Urine Nitrite NEG Ur Leukocyte Esterase NEG Urine RBC 0-2 Urine WBC 0-2 Ur Squamous Epith Cells TRACE Urine Bacteria NONE Hyaline Casts 15-29 COVID-19 (DUNG) COVID-19 Clin Com 04/19/20 04/20/20 04/20/20 13:27 13:24 13:24 WBC 28.0 H RBC 3.21 L Hgb 9.3 L Hct 29.0 L MCV 90.3 MCH 29.0 MCHC 32.1 RDW 16.8 H Plt Count 852 H MPV 9.2 L Immature Gran % (Auto) 1.3 H Neut % (Auto) 85.7 H Lymph % (Auto) 4.6 L [place] % (Auto) 8.3 Eos % (Auto) 0.0 Baso % (Auto) 0.1 Lymph # (Auto) 1.3 [place] # (Auto) 2.3 H Eos # (Auto) 0.0 Baso # (Auto) 0.0 Abs Immat Gran (auto) 0.37 H Absolute Neuts (auto) 24.0 H Absolute Nucleated RBC 0.000 Nucleated RBC % (auto) 0.0 Smear Tech's Comments VERIFIED PT INR APTT Sodium 131 L Potassium 4.3 Chloride 102 Carbon Dioxide 19 L Anion Gap 14 BUN 32 H D Creatinine 0.87 Estim Creat Clear Calc 93.2 Estimated GFR > 60 Random Glucose 115 D Lactic Acid Lactic Acid Fup @ 2Hr Lactic Acid Fup @ 4Hr 3.0 H* Uric Acid Calcium 6.5 L D Magnesium Total Bilirubin Direct Bilirubin AST ALT Alkaline Phosphatase Lactate Dehydrogenase Troponin I High Sens B-Natriuretic Peptide Total Protein Albumin Lipase Urine Color Urine Appearance Urine pH Ur Specific [place] Urine Protein Urine Glucose (UA) Urine Ketones Urine Blood Urine Nitrite Ur Leukocyte Esterase Urine RBC Urine WBC Ur Squamous Epith Cells Urine Bacteria Hyaline Casts COVID-19 (DUNG) COVID-19 Clin Com 04/20/20 04/20/20 04/21/20 13:24 13:41 10:46 WBC 26.0 H RBC 2.90 L Hgb 8.5 L Hct 26.0 L MCV 89.7 MCH 29.3 MCHC 32.7 RDW 17.0 H Plt Count 704 H MPV 9.3 L Immature Gran % (Auto) 1.1 H Neut % (Auto) 84.4 H Lymph % (Auto) 5.4 L [place] % (Auto) 9.0 Eos % (Auto) 0.0 Baso % (Auto) 0.1 Lymph # (Auto) 1.4 [place] # (Auto) 2.3 H Eos # (Auto) 0.0 Baso # (Auto) 0.0 Abs Immat Gran (auto) 0.28 H Absolute Neuts (auto) 21.9 H Absolute Nucleated RBC 0.000 Nucleated RBC % (auto) 0.0 Smear Tech's Comments VERIFIED PT INR APTT Sodium Potassium Chloride Carbon Dioxide Anion Gap BUN Creatinine Estim Creat Clear Calc Estimated GFR Random Glucose Lactic Acid Lactic Acid Fup @ 2Hr Lactic Acid Fup @ 4Hr Uric Acid Calcium Magnesium Total Bilirubin Direct Bilirubin AST ALT Alkaline Phosphatase Lactate Dehydrogenase Troponin I High Sens 22.6 B-Natriuretic Peptide Total Protein Albumin Lipase 298 H Urine Color Urine Appearance Urine pH Ur Specific [place] Urine Protein Urine Glucose (UA) Urine Ketones Urine Blood Urine Nitrite Ur Leukocyte Esterase Urine RBC Urine WBC Ur Squamous Epith Cells Urine Bacteria Hyaline Casts COVID-19 (DUNG) COVID-19 Clin Com 04/21/20 04/21/20 10:46 13:28 WBC RBC Hgb Hct MCV MCH MCHC RDW Plt Count MPV Immature Gran % (Auto) Neut % (Auto) Lymph % (Auto) [place] % (Auto) Eos % (Auto) Baso % (Auto) Lymph # (Auto) [place] # (Auto) Eos # (Auto) Baso # (Auto) Abs Immat Gran (auto) Absolute Neuts (auto) Absolute Nucleated RBC Nucleated RBC % (auto) Smear Tech's Comments PT INR APTT Sodium 126 L Potassium 5.6 H D Chloride 93 L Carbon Dioxide 21 L Anion Gap 18 BUN 52 H D Creatinine 1.40 Estim Creat Clear Calc 57.9 Estimated GFR 52 Random Glucose 141 H Lactic Acid Lactic Acid Fup @ 2Hr Lactic Acid Fup @ 4Hr Uric Acid 11.3 H Calcium 7.6 L D Magnesium Total Bilirubin 0.9 Direct Bilirubin 0.7 H AST 118 H ALT 179 H Alkaline Phosphatase 767 H D Lactate Dehydrogenase 329 H Troponin I High Sens 21.8 B-Natriuretic Peptide Total Protein 6.2 L Albumin 3.5 Lipase 245 H Urine Color Urine Appearance Urine pH Ur Specific [place] Urine Protein Urine Glucose (UA) Urine Ketones Urine Blood Urine Nitrite Ur Leukocyte Esterase Urine RBC Urine WBC Ur Squamous Epith Cells Urine Bacteria Hyaline Casts COVID-19 (DUNG) COVID-19 Clin Com Preliminary micro results at discharge 04/19/20 09:24 Blood Culture - Preliminary Blood - Venous No growth after 48 hours. 04/19/20 08:11 Blood Culture - Preliminary Blood - Venous No growth after 48 hours. Discharge Plan Discharge Anticipated Discharge Date/Time: 04/21/20 14:36 Patient Disposition: [facility] Referrals: Wendy Liu MD [Primary Care Provider] - Discharge Medications: Continued ferrous sulfate 325 mg (65 mg iron) Tablet 325 mg PO BID RF: 0 multivitamin Tablet 1 tab PO DAILY RF: 0 gabapentin 600 mg Tablet 600 mg PO TID RF: 0 albuterol sulfate [ProAir HFA] 90 mcg/actuation Hfa Aerosol Inhaler 1 inh INHALATION QID PRN (Reason: Shortness Of Breath Or Wheezing) RF: 0 Spiriva with HandiHaler 18 mcg Capsule, W/Inhalation Device 1 cap INHALATION DAILY RF: 0 gabapentin 300 mg Tablet 300 mg PO TID RF: 0 omeprazole 20 mg Tablet,Delayed Release (Dr/Ec) 20 mg PO BID RF: 0 ondansetron HCl [Zofran] 4 mg tablet 8 mg PO Q8H PRN (Reason: Nausea) RF: 0 oxycodone 5 mg tablet 5 mg PO Q6H PRN (Reason: Foot pain) Qty: 14 RF: 0 fluticasone propionate 110 mcg/actuation Hfa Aerosol Inhaler 1 puff INHALATION BID RF: 0 loratadine 10 mg capsule 10 mg PO DAILY RF: 0 folic acid 1 mg tablet 1 mg PO DAILY RF: 0 vitamin B complex [B Complex-Vitamin B12] Tablet 1 tab PO DAILY RF: 0 thiamine HCl (vitamin B1) 100 mg tablet 100 mg PO DAILY RF: 0 magnesium gluconate [Mag-G] 27 mg magnesium (500 mg) tablet 27 mg PO DAILY RF: 0 famotidine 20 mg tablet 20 mg PO DAILY RF: 0 atorvastatin 40 mg tablet 40 mg PO BEDTIME RF: 0 Held aspirin [Adult Low Dose Aspirin] 81 mg tablet,delayed release (DR/EC) 81 mg PO DAILY RF: 0 Hold Instructions: Resume on 05/07/20. venlafaxine 37.5 mg capsule,extended release 24hr 37.5 mg PO DAILY RF: 0 Hold Instructions: Resume on 05/06/20. tamsulosin 0.4 mg capsule 0.4 mg PO DAILY RF: 0 Hold Instructions: Resume on 05/06/20. quetiapine 50 mg tablet 50 mg PO BID RF: 0 Hold Instructions: Resume on 05/06/20. isosorbide mononitrate 60 mg tablet extended release 24 hr 60 mg PO DAILY RF: 0 Hold Instructions: Resume on 04/29/20. clopidogrel 75 mg tablet 75 mg PO DAILY RF: 0 Hold Instructions: Resume on 05/07/20. Discontinued amoxicillin-pot clavulanate 875-125 mg tablet 1 tab PO BID Qty: 20 RF: 0 Discharge Orders: Discharge Order (Routine); Ordered 04/21/20 Ordered By: Angel Shukla Activity on Discharge: As tolerated Stand Alone Forms: Patient Portal Discharge page Care Plan Goals: treat pericardial effusion Health Concerns: pericardial effusion , poor po intake Plan of Treatment: transfer to [facility] for further management Discharge Date/Time: 04/21/20 19:51
--- NOTE | 2020-04-21 15:00 | MHC.CM.PN ---
DP ACUTE CARE TRANSFER TO [facility] VIA ALS.
--- NOTE | 2020-04-21 15:48 | W.PM.IDCN ---
History of Present Illness Data of Consult Service Date: 04/21/20 Requesting physician: Angel Shukla Primary Care Provider: Wendy Liu MD [facility] Reason for consult: nausea and fatigue He presents to hospital with nausea and vomiting for 3 days He has feverish feelings at home He gets chemotherapy and last two weeks ago for Stage 4 lung cancer He has diffuse abdominal pain,now better Review of Systems Review of Systems: Yes all other systems are reviewed and are negative PMFSH Past Medical History Medical History Amputation of one or more toes BPH (benign prostatic hyperplasia) Bronchitis, chronic CAD (coronary artery disease) COPD (chronic obstructive pulmonary disease) Depression Diabetes type 2 with atherosclerosis of arteries of extremities GERD (gastroesophageal reflux disease) Hyperlipidemia Hypertension Lung cancer Non-small cell lung cancer with metastasis SHANIQUA (obstructive sleep apnea) Osteomyelitis of third toe of right foot PAD (peripheral artery disease) Peripheral neuropathy Post-op bleeding PVD (peripheral vascular disease) Smoker Tobacco consumption Family History Family History Father History of lung cancer Mother History of hypertension Family history of Alzheimer's disease Maternal Uncle History of colon cancer Surgical History Surgical History History of angioplasty History of bronchoscopy History of cholecystectomy History of hernia repair History of removal of cyst History of tonsillectomy Osteomyelitis of fifth toe of right foot Osteomyelitis of fourth toe of right foot Social History Social History Household Members: Spouse Housing: Apartment Do you presently have visiting nurse or other home services: Yes Alcohol intake: never Smoking Status: Current every day smoker Tobacco Type: Cigarette Packs Per Day: 2 Years Smoked: 45 years Smoked in Last 30 Days: Yes Patient Interested in Nicotine Replacement: Yes Use of substances other than those prescribed or required for medical reasons: Yes Substance Use Type: Marijuana Substance Use Frequency: Daily Last Used Substance: Days (ago) Currently Displaying Signs/Symptoms of Drug Intoxication Withdrawal: No Have you been hit, kicked, punched, or otherwise hurt by someone within the past year? If so, by whom?: No Do you feel safe in your current relationship?: Yes Is there a partner from a previous relationship who is making you feel unsafe now?: No Are you made to feel afraid or neglected: No Advance Directives: Yes Advance Directives on File: Yes Advance Directives Date on File: 04/14/09 Do you have thoughts of harming others: None Do you have a plan to hurt others: No Plan Recently lost weight without trying: Unsure service: No Current occupational status: unemployed Meds Allergies Allergy/AdvReac Type Severity Reaction Status Date / Time lisinopril [LISINOPRIL] Allergy Intermediate BLEEDING Verified 01/23/20 15:44 IN MOUTH,SWELLING Josh inhibitors Allergy Unknown Unknown Uncoded 12/18/19 11:48 Active Medications: Current Medications Generic Name Dose Route Start Last Admin Trade Name Freq PRN Reason Stop Dose Admin Albuterol Sulfate 1 puff 04/19/20 16:12 Albuterol Sulfate 90 Mcg 8 Gm Inhaler INHALE QID PRN Shortness Of Breath Or Wheezing Albuterol/Ipratropium 3 ml 04/19/20 14:40 Albuterol/Iprat 2.5/0.5mg 3 Ml Ampul.Neb INHALE RQ4H PRN Dyspnea Atorvastatin Calcium 40 mg 04/19/20 21:00 04/20/20 20:47 Atorvastatin Calcium 40 Mg Tablet PO 40 mg BEDTIME MOLLY Administration Docusate Sodium 100 mg 04/19/20 21:00 04/20/20 20:47 Docusate Sodium 100 Mg Capsule PO 100 mg BEDTIME MOLLY Administration Ferrous Sulfate 324 mg 04/19/20 21:00 04/21/20 08:27 Ferrous Sulfate 324 Mg Tablet. PO 324 mg BID MOLLY Administration Fluticasone Propionate 1 puff 04/19/20 20:00 04/21/20 08:13 Fluticasone Propionate 100 Mcg Blst.W.Dev INHALE 1 puff RBID MOLLY Administration Folic Acid 1 mg 04/20/20 09:00 04/21/20 08:27 Folic Acid 1 Mg Tablet PO 1 mg DAILY MOLLY Administration Promethazine HCl 6.25 mg/ 50.25 mls @ 201 mls/hr 04/19/20 14:40 04/19/20 20:35 Sodium Chloride IV Infused Q6H PRN Infusion Nausea and Vomiting Lactated Ringer's 1,000 mls @ 100 mls/hr 04/20/20 15:00 04/21/20 06:05 Lr IVCONT 100 mls/hr .Q10H MOLLY Administration Loratadine 10 mg 04/20/20 09:00 04/21/20 08:27 Loratadine 10 Mg Tablet PO 10 mg DAILY MOLLY Administration Methylprednisolone Sodium Succinate 60 mg 04/21/20 14:00 04/21/20 13:58 Methylprednisolone Sod Succ/Pf 125 Mg/2 Ml Vial IVPUSH 60 mg Q12H MOLYL Administration Morphine Sulfate 2 mg 04/21/20 13:15 Morphine Sulfate 2 Mg/Ml Cartridge IVPUSH Q6H PRN Pain, Severe (Pain Scale 7-10) Nicotine 14 mg 04/21/20 10:30 04/21/20 11:16 Nicotine 14 Mg Patch.Td24 TRANSDERMA 14 mg DAILY MOLLY Administration Oxycodone HCl 5 mg 04/19/20 16:12 04/20/20 20:46 Oxycodone Hcl Immed Release 5 Mg Tablet PO 5 mg Q6H PRN Administration Foot pain Pantoprazole Sodium 40 mg 04/20/20 13:49 04/21/20 06:05 Pantoprazole Sodium 40 Mg/10 Ml Vial IVPUSH 40 mg BID@0630,1630 MOLLY Administration Polyethylene Glycol 17 gm 04/19/20 14:45 04/21/20 11:16 Polyethylene Glycol 3350 17 Gm Powd.Pack PO 17 gm DAILY MOLLY Administration Sodium Chloride 3 ml 04/19/20 16:00 04/21/20 08:27 0.9 % Sodium Chloride Flush 3 Ml Syringe IVFLUSH 3 ml QSHIFT MOLLY Administration Thiamine HCl 100 mg 04/20/20 09:00 04/21/20 08:27 Thiamine Hcl 100 Mg Tablet PO 100 mg DAILY MOLLY Administration Tiotropium [place] 1 puff 04/20/20 09:00 04/21/20 08:13 Tiotropium [place] 18 Mcg Cap.W.Dev INHALE 1 puff DAILY MOLLY Administration Home Medications Medication Instructions Recorded Confirmed Last Taken Type aspirin 81 mg tablet,delayed 81 mg PO DAILY 12/18/19 04/19/20 04/16/20 History release atorvastatin 40 mg tablet 40 mg PO BEDTIME 12/18/19 04/19/20 04/16/20 History clopidogrel 75 mg tablet 75 mg PO DAILY 12/18/19 04/19/20 04/16/20 History famotidine 20 mg tablet 20 mg PO DAILY 12/18/19 04/19/20 04/16/20 History folic acid 1 mg tablet 1 mg PO DAILY 12/18/19 04/19/20 04/16/20 History isosorbide mononitrate 60 mg 60 mg PO DAILY 12/18/19 04/19/20 04/16/20 History tablet,extended release 24 hr loratadine 10 mg capsule 10 mg PO DAILY 12/18/19 04/19/20 04/16/20 History magnesium gluconate 27 mg 27 mg PO DAILY tab 12/18/19 04/19/20 04/16/20 History magnesium (500 mg) tablet quetiapine 50 mg tablet 50 mg PO BID 12/18/19 04/19/20 04/16/20 History tamsulosin 0.4 mg capsule 0.4 mg PO DAILY 12/18/19 04/19/20 04/16/20 History thiamine HCl (vitamin B1) 100 mg 100 mg PO DAILY 12/18/19 04/19/20 04/16/20 History tablet venlafaxine 37.5 mg 37.5 mg PO DAILY 12/18/19 04/19/20 04/16/20 History capsule,extended release 24 hr vitamin B complex 1 tab PO DAILY 12/18/19 04/19/20 04/16/20 History Spiriva with HandiHaler 1 cap INHALATION DAILY 01/08/20 04/19/20 04/16/20 History albuterol sulfate [ProAir HFA] 1 inh INHALATION QID PRN 01/08/20 04/19/20 04/16/20 History ferrous sulfate 325 mg PO BID 01/08/20 04/19/20 04/16/20 History gabapentin 300 mg PO TID 01/08/20 04/19/20 04/16/20 History gabapentin 600 mg PO TID 01/08/20 04/19/20 04/16/20 History multivitamin 1 tab PO DAILY 01/08/20 04/19/20 04/16/20 History omeprazole 20 mg PO BID 01/08/20 04/19/20 04/16/20 History ondansetron HCl [Zofran] 8 mg PO Q8H PRN 01/08/20 04/15/20 03/27/20 History fluticasone propionate 1 puff INHALATION BID 02/17/20 04/19/20 04/16/20 History Physical Exam Vital Signs: Vital Signs: Last Vital Signs Temp 97.9 F 04/21/20 11:34 Pulse 105 H 04/21/20 11:34 Resp 22 H 04/21/20 11:34 BP 117/75 04/21/20 11:34 Pulse Ox 91 L 04/21/20 11:34 Body Mass Index 25.8 Const: General: cooperative HENMT: Head: Yes normal to inspection Mouth: Normal oral and palatal mucosa present Eyes: General: appearance normal, both eyes and all related structures Resp: Effort & Inspection: normal respiratory effort Cardio: Rate: regular rate Rhythm: regular rhythm GI: Palpation (GI): Soft to palpation and nontender Skin: General skin exam: no rashes or lesions noted Neuro: Other: neuropathy Extrem: Other: healing right foot Results Labs CBC & Chem 7: 04/21/20 10:46 04/21/20 10:46 Labs: Short CBC 04/21/20 Range/Units 10:46 WBC 26.0 H (4.8-10.8) X10*3/uL Hgb 8.5 L (14.0-18.0) g/dl Hct 26.0 L (42-52) % Plt Count 704 H (160-400) X10*3/uL BMP 04/21/20 10:46 Sodium 126 L Potassium 5.6 H D Chloride 93 L Carbon Dioxide 21 L BUN 52 H D Creatinine 1.40 Calcium 7.6 L D Liver Function 04/21/20 Range/Units 10:46 Total Bilirubin 0.9 (0.0-1.0) mg/dL Direct Bilirubin 0.7 H (0.0-0.5) mg/dL AST 118 H (5-37) U/L ALT 179 H (0-40) U/L Alkaline Phosphatase 767 H D (39-117) U/L Albumin 3.5 (3.5-5.0) g/dL Microbiology Microbiology Results: Microbiology 04/19/20 09:24 Blood - Venous Blood Culture - Preliminary No growth after 48 hours. 04/19/20 08:11 Blood - Venous Blood Culture - Preliminary No growth after 48 hours. Assessment and Plan (1) Abdominal pain: Qualifiers: Abdominal location: left lower quadrant Qualified Code(s): R10.32 - Left lower quadrant pain Problem details: Likely related to Augmentin use Foot looks stable with no acute infection Status: Acute Stop all antibiotics No treatment for any infectious abdominal problem (2) Lung cancer: Qualifiers: Laterality: unspecified laterality Lung location: unspecified part of lung Qualified Code(s): C34.90 - Malignant neoplasm of unspecified part of unspecified bronchus or lung Status: Acute (3) Amputation of one or more toes: Status: Acute
[2020-04-21 15:51] VITALS: RESP 18
[2020-04-21] MEDS: Morphine Sulfate 2 MG/ML CARTRIDGE IVPUSH (15:51)
[2020-04-21 15:55] VITALS: BP 117/76; PULSE 114; TEMP 35.7; O2SAT 92
[2020-04-21 16:28] LABS: COVID-19 Test Negative (Negative); IDNOW Serial# 9DD0AD1C
[2020-04-22 11:07] LABS: Carbohydrate Antigen 19-9 14 U/mL (<34)
== END 2020-04-21 19:51 | disposition short-term general hospital (02) | DRG 282 ==
LOC: HO.ED 11:21 → HO.EDOVER 12:25 → HO.IMC 04-20 11:53
PROVIDERS: Internal Medicine; Internal Medicine Gastroenterology; Admitting Provider Internal Medicine; Emergency Provider Emergency Medicine; PCP Family Medicine; Visit Provider Internal Medicine
DX: K85.30 Drug induced acute pancreatitis without necrosis or infection (principal); N17.9 Acute kidney failure, unspecified; C34.90 Malignant neoplasm of unspecified part of unspecified bronchus or lung; C79.51 Secondary malignant neoplasm of bone; C78.7 Secondary malignant neoplasm of liver and intrahepatic bile duct; C78.89 Secondary malignant neoplasm of other digestive organs; I31.3 Pericardial effusion (noninflammatory); E87.5 Hyperkalemia; D47.3 Essential (hemorrhagic) thrombocythemia; J44.9 Chronic obstructive pulmonary disease, unspecified; D72.829 Elevated white blood cell count, unspecified; E78.5 Hyperlipidemia, unspecified; F17.210 Nicotine dependence, cigarettes, uncomplicated; G47.33 Obstructive sleep apnea (adult) (pediatric); Z20.822 Contact with and (suspected) exposure to COVID-19; I25.10 Atherosclerotic heart disease of native coronary artery without angina pectoris; T45.1X5A Adverse effect of antineoplastic and immunosuppressive drugs, initial encounter; Y92.9 Unspecified place or not applicable; Z71.6 Tobacco abuse counseling; Z79.02 Long term (current) use of antithrombotics/antiplatelets; Z79.51 Long term (current) use of inhaled steroids; Z79.82 Long term (current) use of aspirin; Z79.899 Other long term (current) drug therapy
CPT/HCPCS: 36415; 71045; 71250; 74177; 80048; 80076; 81001; 81003; 82378; 83605; 83615; 83690; 83735; 83880; 84484; 84550; 85025; 85610; 85730; 86301; 87040; 87635; 93005; 93306; 94640; 96361; 96374; 96375; 99285; J1170; J1650; J2270; J2405; J2543; J2930; J3475; Q9967